=== PATIENT | male | born 1970 | race Caucasian/White ===

== ENCOUNTER 2016-07-23 16:55 | Emergency (ER) | payer OTHER ==
[~2016-07-23] VITALS: Wt 72.6 kg
[~2016-07-23 16:55] MED LIST: 'PARAFON FORTE500 M1 PO; 'XANAX1 MG PO; 'zithromax250 MG PO; ACYCLOVIR800 MG PO; ALBUTEROL0.09 MG/A2 INH; ALLEGRA180 MG PO; AMARYL4 MG PO; AMOXIL250 M1 PO; ANTIBIOTIC O500 U/GM TP; ASPIR LOW81 MG PO; ASPIRIN CHILDRE81 MG PO; ASPIRIN325 MG PO; ASPIRIN81 MG PO; ATARAX,VISTARIL10 MG PO; ATIVAN1 MG PO; BENTYL10 MG PO; BETAMETHASONE0.1% TP; BIAXIN500 MG PO; BUSPIRONE HCL15 MG PO; BUSPIRONE HCL5 MG PO; BUSPIRONE5 MG PO; CARVEDILOL3.125 MG PO; CARVEDILOL6.25 MG PO; CATAFLAM50 MG PO; CELEXA20 MG PO; CIPRO500 MG PO; CLARITIN10 MG PO; CLONAZEPAM1 MG PO; CLOPIDOGREL75 MG PO; COREG12.5 MG PO; COREG3.125 MG PO; COREG6.25 MG PO; COUMADIN2 M1 PO; COUMADIN2.5 M1 PO; COZAAR25 MG PO; CYCLOBENZAPRINE10 MG PO; DAYPRO600 M1 PO; DOLOBID500 MG PO; DOXEPIN 10 MG/ML PO; DOXEPIN HCL150 MG PO; DOXYCYCLINE HY100 M3 PO; DOXYCYCLINE100 M2 PO; DUONEB 3ML 3 MG/3 ML INH; EC NAPROSYN500 MG PO; EES400 MG PO; FIORICET 325 MG1 TAB PO; FLEXERIL10 MG PO; FLEXERIL5 MG PO; FUROSEMIDE40 MG PO; Fioricet 325 MG1 TAB PO; HYDROCHLOROTH12.5 M1 PO; HYDROCODONE BIT1 T11 PO; IMDUR SA30 MG PO; K-TAB20 MEQ PO; KEFLEX125 MG/5 M PO; KEFLEX500 MG PO; KETOROLAC10 MG PO; KLONOPIN1 MG PO; LIPITOR20 MG PO; LIPITOR40 MG PO; LISINOPRIL2.5 MG PO; MACROBID100 M1 PO; MEDROL DOSEPAK4 MG PO; MEDROL4 MG PO; METOPROLOL50 MG PO; MIDRIN (DURADR1 CAP PO; MOTRIN800 MG PO; MULTIVITAMIN PO; Motrin,Rufen800 MG PO; NAPROSYN500 MG PO; NAPROXEN500 M1 PO; NAPROXEN500 MG PO; NEURONTIN300 MG PO; NEURONTIN600 MG PO; NITROSTAT0.4 MG SL; NORCO 325 MG-101 TAB PO; NORCO 325 MG-7.1 TAB PO; NORFLEX100 MG PO; PANTOPRAZOLE SO40 MG PO; PEPCID20 MG PO; PEPCID40 MG PO; PHENERGAN W/ DE30 ML PO; PLAVIX75 MG PO; PREDNICOT10 MG PO; PREDNISONE20 MG PO; PRILOSEC20 MG PO; PROAIR HFA0.09 MG/AC INH; PROTONIX40 MG PO; RANEXA PO; RANEXA500 MG PO; SEROQUEL100 MG PO; SEROQUEL50 MG PO; SIMVASTATIN40 MG PO; SIMVASTATIN5 MG PO; TESSALON PERLE100 MG PO; TORADOL10 MG PO; TRAMADOL HCL50 MG PO; TYLENOL W/CODEI1 TA2 PO; ULTRAM50 MG PO; VIBRAMYCIN100 MG PO; VICODIN 5/500 505 MG PO; VICODIN 500 MG-1 TAB PO; VITAMIN D-32000 UNIT PO; VOLTAREN50 M1 PO; XANAX0.25 MG PO; XANAX1 MG PO; ZANTAC150 MG PO; ZESTRIL2.5 MG PO; ZITHROMAX Z PA250 MG PO; ZITHROMAX250 MG PO; ZOCOR20 MG PO; ZOCOR40 MG PO; ZOFRAN ODT4 MG SL; ZOFRAN4 MG PO; Zofran4 MG PO; [UNRECOGNIZED DRUG - OTHER] PO; [UNRECOGNIZED DRUG - OTHER] PO
[2016-07-23] MEDS ORDERED: LISINOPRIL5 MG PO (16:57)
[2016-07-23] MEDS ORDERED: DIAZEPAM10 M1 PO (16:58)
[2016-07-23] MEDS ORDERED: NAPROSYN500 MG PO (17:06)
== END 2016-07-23 18:02 | disposition home or self-care (01) ==
LOC: ED 16:55
DX: M25.552 Pain in left hip (principal); I25.10 Atherosclerotic heart disease of native coronary artery without angina pectoris; G43.909 Migraine, unspecified, not intractable, without status migrainosus; F17.200 Nicotine dependence, unspecified, uncomplicated; Z91.041 Radiographic dye allergy status; Z88.1 Allergy status to other antibiotic agents; Z88.8 Allergy status to other drugs, medicaments and biological substances; Z79.82 Long term (current) use of aspirin; Z79.899 Other long term (current) drug therapy

== ENCOUNTER 2016-07-24 18:53 | Emergency (ER) | payer OTHER ==
[~2016-07-24] VITALS: Ht 177.8 cm; Wt 72.6 kg
--- NOTE | ~2016-07-24 | EKG ---
[place], [place] ELECTROCARDIOGRAM REPORT NAME: CINDY GRUBER UNIT #: [id number] ROOM: DOCTOR: RYAN CHAUHAN MD BIRTHDATE: [birth year] DOS: 07/24/2016 TIME: 18:56:45 Normal sinus rhythm with isolated PVCs, probable left atrial enlargement, left axis deviation, poor R wave progression in the anterior leads with nonspecific ST-T changes. RYAN CHAUHAN MD CM:EKGRPT:ELECTROCARDIOGRAM REPORT [id number] RYAN CHAUHAN MD
[~2016-07-24 18:53] MED LIST changes: +DIAZEPAM10 M1 PO; +LISINOPRIL5 MG PO
[2016-07-24 19:41] LABS: BASO % 0.2 % (0.0-1.0); EOS # 0.1 10*3/uL (0.0-0.4); EOS % 0.9 % (1.0-4.0); HEMATOCRIT 37.3 % (42.0-52.0); HEMOGLOBIN 12.7 g/dl (14.0-18.0); IG # 0.1 10*3/uL (0.0-0.1); LYMPH # 1.5 10*3/uL (1.3-4.4); LYMPH % 14.1 % (27.0-41.0); MEAN CELL VOLUME 93.7 fl (80.0-94.0); MEAN CORPUSCULAR HGB 31.9 pg (27.0-31.0); MEAN PLATELET VOLUME 10.5 fl (9.6-12.3); MONO # 0.7 10*3/uL (0.1-1.0); MONO % 6.4 % (3.0-9.0); NEUT # 8.2 10*3/uL (2.3-7.9); NEUT % 77.8 % (47.0-73.0); PLATELET COUNT AUTOMATED 180 10*3/uL (130-400); RED BLOOD COUNT 3.98 10*6/uL (4.50-5.90); RED CELL DISTRI WIDTH 13.8 % (0-14.5); WHITE BLOOD COUNT 10.5 10*3/uL (4.8-10.8)
[2016-07-24 19:50] LABS: INTERNATIONAL NORM RATIO 1.1 (2.0-3.5); PROTHROMBIN TIME 11.2 SECONDS (9.0-12.4)
[2016-07-24 19:58] LABS: ALBUMIN 3.3 gm/dl (3.1-4.5); ALKALINE PHOSPHATASE 89 U/L (45-117); BILIRUBIN, DIRECT 0.2 mg/dL (0.0-0.2); BILIRUBIN, TOTAL 0.6 mg/dl (0.2-1.0); BUN 8 mg/dl (7-24); CARBON DIOXIDE 26 mmol/L (21-32); CHLORIDE 110 mmol/L (98-107); EST GLOM FILT AFRICAN AMERICAN > 60 ml/min; GLUCOSE 108 mg/dL (65-99); MAGNESIUM 1.4 mg/dL (1.5-2.1); POTASSIUM 4.1 mmol/L (3.5-5.1); SGOT/AST 73 IU/L (3-35); SGPT/ALT 80 U/L (12-78); SODIUM 143 mmol/L (136-145); TOTAL PROTEIN 6.7 gm/dL (6.4-8.2)
[2016-07-24 19:59] LABS: TROPONIN I 0.018 ng/ml (<0.045)
== END 2016-07-24 21:28 | disposition short-term general hospital (02) ==
LOC: ED 18:53
PROVIDERS: Emergency Medicine
DX: R07.9 Chest pain, unspecified (principal); F17.200 Nicotine dependence, unspecified, uncomplicated; I25.10 Atherosclerotic heart disease of native coronary artery without angina pectoris; G43.909 Migraine, unspecified, not intractable, without status migrainosus; Z95.5 Presence of coronary angioplasty implant and graft; Z79.82 Long term (current) use of aspirin; Z88.0 Allergy status to penicillin; Z88.1 Allergy status to other antibiotic agents; Z88.8 Allergy status to other drugs, medicaments and biological substances; Z91.041 Radiographic dye allergy status

== ENCOUNTER → 2016-08-03 | Outpatient (CLI) | payer OTHER ==
--- NOTE | ~2016-08-03 | ST ---
[place], [place] EXERCISE STRESS TEST REPORT [facility] [id number] UNIT #: [id number] ROOM: DOCTOR: RYAN CHAUHAN MD BIRTHDATE: [birth year] DOS: 08/03/2016 Lexiscan portion of the Lexiscan Cardiolite. Baseline cardiogram is sinus rhythm with poor R-wave progression, completed anteroseptal myocardial infarction, 0.4 mg of Lexiscan, duration of 10 seconds. With Lexiscan, no new EKG changes. The patient had no chest discomfort. Blood pressure and heart rate response was normal. Nuclear images will be reported separately. FINAL IMPRESSION: No EKG changes with Lexiscan. No chest pain with Lexiscan. No dysrhythmia with Lexiscan. Blood pressure and heart rate response was normal. Nuclear images will be reported separately. RYAN CHAUHAN MD CM:STRESS:EXERCISE STRESS TEST REPORT [id number] RYAN CHAUHAN MD
== END | disposition home or self-care (01) ==
LOC: CARD 01:50
DX: I25.119 Atherosclerotic heart disease of native coronary artery with unspecified angina pectoris (principal)

== ENCOUNTER 2016-09-15 15:56 | Emergency (ER) | payer OTHER ==
[~2016-09-15] VITALS: Ht 180.3 cm; Wt 72.6 kg
[2016-09-15 16:29] LABS: BASO % 0.5 % (0.0-1.0); EOS # 0.1 10*3/uL (0.0-0.4); EOS % 2.1 % (1.0-4.0); HEMATOCRIT 37.8 % (42.0-52.0); HEMOGLOBIN 12.9 g/dl (14.0-18.0); LYMPH # 1.8 10*3/uL (1.3-4.4); MEAN CELL VOLUME 96.4 fl (80.0-94.0); MEAN CORPUSCULAR HGB 32.9 pg (27.0-31.0); MEAN CORPUSCULAR HGB CONC 34.1 g/dl (33.0-37.0); MEAN PLATELET VOLUME 10.2 fl (9.6-12.3); MONO # 0.4 10*3/uL (0.1-1.0); MONO % 6.6 % (3.0-9.0); NEUT # 3.3 10*3/uL (2.3-7.9); NEUT % 58.4 % (47.0-73.0); PLATELET COUNT AUTOMATED 169 10*3/uL (130-400); RED BLOOD COUNT 3.92 10*6/uL (4.50-5.90); RED CELL DISTRI WIDTH 13.3 % (0-14.5); WHITE BLOOD COUNT 5.6 10*3/uL (4.8-10.8)
[2016-09-15 16:47] LABS: ALBUMIN 3.6 gm/dl (3.1-4.5); ALKALINE PHOSPHATASE 59 U/L (45-117); BILIRUBIN, TOTAL 0.4 mg/dl (0.2-1.0); BUN 2 mg/dl (7-24); C-REACTIVE PROTEIN 1.41 MG/DL (0-0.3); CARBON DIOXIDE 30 mmol/L (21-32); CHLORIDE 107 mmol/L (98-107); CKMB 0.5 ng/ml (0.5-3.6); CPK 86 U/L (39-308); EST GLOM FILT AFRICAN AMERICAN > 60 ml/min; GLUCOSE 51 mg/dL (65-99); INTERNATIONAL NORM RATIO 1.1 (2.0-3.5); MAGNESIUM 1.9 mg/dL (1.5-2.1); POTASSIUM 3.7 mmol/L (3.5-5.1); PROTHROMBIN TIME 11.2 SECONDS (9.0-12.4); SGOT/AST 22 IU/L (3-35); SGPT/ALT 16 U/L (12-78); SODIUM 143 mmol/L (136-145); TOTAL PROTEIN 6.5 gm/dL (6.4-8.2); TROPONIN I < 0.015 ng/ml (<0.045)
[2016-09-15 17:25] LABS: BILIRUBIN NEGATIVE (NEGATIVE); BLOOD NEGATIVE (NEGATIVE); CLARITY CLEAR (CLEAR); COLOR YELLOW (YELLOW); GLUCOSE 1+ (NEGATIVE); KETONE NEGATIVE (NEGATIVE); LEUKO ESTERASE NEGATIVE (NEGATIVE); NITRITE NEGATIVE (NEGATIVE); PH 5.5 (5.0-9.0); PROTEIN NEGATIVE (NEGATIVE); SPECIFIC GRAVITY <= 1.005 (1.005-1.030); UROBILINOGEN 0.2 E.U./dl (0.2-1.0)
[2016-09-15 17:34] LABS: URINE AMPHETAMINES < 1000 (1000ng/ml); URINE BARBITURATES < 200 (200ng/ml); URINE COCAINE < 300 (300ng/ml)
[2016-09-15 17:35] LABS: BACTERIA TRACE; EPITHELIAL CELLS 0-2; RBC 0-2 rbc/hpf (0-2); URINE REFLEX COMMENT NO (NO); WBC 0-2 wbc/hpf (0-5)
[2016-09-15] MEDS ORDERED: KEPPRA500 MG PO (17:45)
[2016-09-15 18:24] LABS: LA>2 REFLEX 2 HR DRAW NOW
== END 2016-09-15 18:29 | disposition home or self-care (01) ==
LOC: ED 15:56
PROVIDERS: Emergency Medicine
DX: R56.9 Unspecified convulsions (principal); F12.10 Cannabis abuse, uncomplicated; R53.1 Weakness; R51 Headache; R42 Dizziness and giddiness; R47.81 Slurred speech; R41.0 Disorientation, unspecified; I25.2 Old myocardial infarction; I25.10 Atherosclerotic heart disease of native coronary artery without angina pectoris; G43.909 Migraine, unspecified, not intractable, without status migrainosus; Z88.1 Allergy status to other antibiotic agents; Z88.8 Allergy status to other drugs, medicaments and biological substances; Z91.041 Radiographic dye allergy status; Z79.82 Long term (current) use of aspirin; Z79.899 Other long term (current) drug therapy

== ENCOUNTER 2016-09-26 10:55 | Emergency (ER) | payer OTHER ==
[~2016-09-26] VITALS: Ht 172.7 cm; Wt 72.6 kg
[~2016-09-26 10:55] MED LIST changes: +KEPPRA500 MG PO
[2016-09-26] MEDS ORDERED: PLAVIX75 M1 PO ×2 (11:02→11:25)
[2016-09-26] MEDS ORDERED: LISINOPRIL5 MG PO (11:25)
[2016-09-26] MEDS ORDERED: PROTONIX40 MG PO (11:25)
[2016-09-26] MEDS ORDERED: KEPPRA500 MG PO (11:25)
== END 2016-09-26 12:31 | disposition home or self-care (01) ==
LOC: ED 10:55
DX: Z76.0 Encounter for issue of repeat prescription (principal); I10 Essential (primary) hypertension; I25.10 Atherosclerotic heart disease of native coronary artery without angina pectoris; G43.909 Migraine, unspecified, not intractable, without status migrainosus; F12.10 Cannabis abuse, uncomplicated; F17.200 Nicotine dependence, unspecified, uncomplicated

== ENCOUNTER 2016-11-21 20:04 | Emergency (ER) | payer OTHER ==
[~2016-11-21] VITALS: Ht 167.6 cm; Wt 71.2 kg
[~2016-11-21 20:04] MED LIST changes: +PLAVIX75 M1 PO
[2016-11-21 20:15] LABS: BASO % 0.3 % (0.0-1.0); EOS # 0.1 10*3/uL (0.0-0.4); EOS % 1.3 % (1.0-4.0); HEMATOCRIT 39.8 % (42.0-52.0); HEMOGLOBIN 13.4 g/dl (14.0-18.0); LYMPH # 3.6 10*3/uL (1.3-4.4); LYMPH % 34.9 % (27.0-41.0); MEAN CELL VOLUME 92.6 fl (80.0-94.0); MEAN CORPUSCULAR HGB 31.2 pg (27.0-31.0); MEAN CORPUSCULAR HGB CONC 33.7 g/dl (33.0-37.0); MONO # 0.3 10*3/uL (0.1-1.0); MONO % 2.8 % (3.0-9.0); NEUT # 6.2 10*3/uL (2.3-7.9); NEUT % 60.3 % (47.0-73.0); PLATELET COUNT AUTOMATED 265 10*3/uL (130-400); WHITE BLOOD COUNT 10.2 10*3/uL (4.8-10.8)
[2016-11-21 20:34] LABS: ALBUMIN 3.4 gm/dl (3.1-4.5); ALKALINE PHOSPHATASE 65 U/L (45-117); BUN 6 mg/dl (7-24); CHLORIDE 110 mmol/L (98-107); CREATININE 1.12 mg/dL (0.70-1.30); MAGNESIUM 2.6 mg/dL (1.5-2.1); POTASSIUM 4.1 mmol/L (3.5-5.1); SGOT/AST 24 IU/L (3-35); SGPT/ALT 24 U/L (12-78); SODIUM 143 mmol/L (136-145); TOTAL PROTEIN 7.1 gm/dL (6.4-8.2)
[2016-11-21 20:35] LABS: TROPONIN I < 0.015 ng/ml (<0.045)
[2016-11-21 21:34] LABS: BILIRUBIN NEGATIVE (NEGATIVE); BLOOD NEGATIVE (NEGATIVE); CLARITY CLEAR (CLEAR); COLOR YELLOW (YELLOW); GLUCOSE NEGATIVE (NEGATIVE); KETONE NEGATIVE (NEGATIVE); LEUKO ESTERASE NEGATIVE (NEGATIVE); NITRITE NEGATIVE (NEGATIVE); SPECIFIC GRAVITY <= 1.005 (1.005-1.030); UROBILINOGEN 0.2 E.U./dl (0.2-1.0)
[2016-11-21 21:44] LABS: URINE AMPHETAMINES < 1000 (1000ng/ml); URINE BARBITURATES < 200 (200ng/ml); URINE BENZODIAZEPINES > 200 (200ng/ml); URINE CANNABINOIDS (THC) > 50 (50ng/ml); URINE COCAINE < 300 (300ng/ml); URINE METHADONE < 300 (300ng/ml); URINE OPIATES < 300 (300ng/ml); URINE PHENCYCLIDINE < 25 (25ng/ml)
[2016-11-21 21:50] LABS: EPITHELIAL CELLS 0-2
[2016-11-21] MEDS ORDERED: LISINOPRIL2.5 MG PO (22:04)
[2016-11-21] MEDS ORDERED: XANAX1 MG PO (22:05)
== END 2016-11-22 00:16 | disposition short-term general hospital (02) ==
LOC: ED 20:04
PROVIDERS: Emergency Medicine Emergency Medical Services
DX: R07.9 Chest pain, unspecified (principal); I25.10 Atherosclerotic heart disease of native coronary artery without angina pectoris; F12.10 Cannabis abuse, uncomplicated; G43.909 Migraine, unspecified, not intractable, without status migrainosus; Z95.1 Presence of aortocoronary bypass graft; Z95.5 Presence of coronary angioplasty implant and graft; Z79.899 Other long term (current) drug therapy; Z79.82 Long term (current) use of aspirin; Z91.041 Radiographic dye allergy status; Z88.8 Allergy status to other drugs, medicaments and biological substances; Z88.1 Allergy status to other antibiotic agents

== ENCOUNTER → 2016-12-06 | Outpatient (CLI) | payer OTHER ==
[2016-12-06 13:29] LABS: BUN 13 mg/dl (7-24); CHLORIDE 103 mmol/L (98-107); POTASSIUM 4.8 mmol/L (3.5-5.1); SODIUM 137 mmol/L (136-145)
[2016-12-06 13:31] LABS: CREATININE 1.42 mg/dL (0.70-1.30)
== END | disposition home or self-care (01) ==
LOC: LAB 12:44
PROVIDERS: Internal Medicine Interventional Cardiology
DX: I25.10 Atherosclerotic heart disease of native coronary artery without angina pectoris (principal); Z98.61 Coronary angioplasty status

== ENCOUNTER 2016-12-23 09:18 | Inpatient (IN) | payer OTHER ==
[~2016-12-23] VITALS: Ht 172.7 cm; Wt 73.7 kg
--- NOTE | ~2016-12-23 | WRIGHTHP ---
[place], [place] PATIENT HISTORY AND PHYSICAL EXAM NAME: CINDY GRUBER [facility] #: [id number] UNIT #: [id number] ROOM: 507 DOCTOR: RYAN ZAMORANO,RAJESH Foster BIRTHDATE: [birth year] DOS: 12/23/2016 HISTORY OF PRESENT ILLNESS: The patient was admitted on advice of Emergency Department with complaints of chest pains and he had significant history of coronary artery disease. Soon after admission, the patient left the hospital against medical advice before she could be seen by me. RAJESH DAVIS MD CM:HISPHYS:PATIENT HISTORY AND PHYSICAL EXAMINATION 99 42 RAEJSH DAVIS MD 12/28/161941 interface
[2016-12-23 09:33] LABS: BASO % 0.4 % (0.0-1.0); EOS # 0.1 10*3/uL (0.0-0.4); EOS % 1.3 % (1.0-4.0); HEMATOCRIT 36.3 % (42.0-52.0); HEMOGLOBIN 12.1 g/dl (14.0-18.0); LYMPH # 2.1 10*3/uL (1.3-4.4); LYMPH % 26.8 % (27.0-41.0); MEAN CELL VOLUME 92.4 fl (80.0-94.0); MEAN CORPUSCULAR HGB 30.8 pg (27.0-31.0); MEAN CORPUSCULAR HGB CONC 33.3 g/dl (33.0-37.0); MEAN PLATELET VOLUME 10.3 fl (9.6-12.3); MONO # 0.4 10*3/uL (0.1-1.0); MONO % 5.4 % (3.0-9.0); NEUT # 5.1 10*3/uL (2.3-7.9); NEUT % 65.6 % (47.0-73.0); PLATELET COUNT AUTOMATED 221 10*3/uL (130-400); RED BLOOD COUNT 3.93 10*6/uL (4.50-5.90); RED CELL DISTRI WIDTH 13.8 % (0-14.5); WHITE BLOOD COUNT 7.8 10*3/uL (4.8-10.8)
[2016-12-23 09:35] VITALS: BP 131/80
[2016-12-23 09:42] LABS: ACT PARTIAL THROMBO TIME 22.2 SECONDS (20.8-31.5)
[2016-12-23 09:49] LABS: ALBUMIN 3.8 gm/dl (3.1-4.5); ALKALINE PHOSPHATASE 63 U/L (45-117); BUN 23 mg/dl (7-24); CHLORIDE 104 mmol/L (98-107); CREATININE 1.41 mg/dL (0.70-1.30); SGOT/AST 25 IU/L (3-35); SGPT/ALT 45 U/L (12-78); SODIUM 137 mmol/L (136-145)
[2016-12-23 09:52] LABS: TROPONIN I < 0.015 ng/ml (<0.045)
[2016-12-23 10:22] VITALS: BP 124/72
--- NOTE | 2016-12-23 10:23 | NUR ---
O2 INITATED FOR COMFORT DUE TO HEADACHE.
--- NOTE | 2016-12-23 11:00 | NUR ---
A 46, admitted to , under the services of Dr. RYAN ZAMORANO,RAJESH Foster with a diagnosis of CHEST PAIN WITH MODERATE RISK FOR CARDIAC ETIOLOGY. Chief complaint is CHEST PAIN. Patient arrived via bed from ER. Monitor applied. Initial assessment completed. Vital signs taken and recorded. DR. RYAN ZAMORANO,RAJESH Foster notified of admission to the unit. Orders received. See assessment for past medical history, medications and allergies. Patient and/or family oriented to unit. [facility] visitation policy reviewed. Clothing/patient valuable form completed. DAVE PISANO
[2016-12-23 11:14] VITALS: BP 91/70
[2016-12-23] MEDS ORDERED: LISINOPRIL5 MG PO (11:43)
--- NOTE | 2016-12-23 11:53 | NUR ---
ANSWERING SERVICE NOTIFIED OF CONSULT
--- NOTE | 2016-12-23 11:58 | NUR ---
NOTIFIED OF CHEST PAIN, PER HE INCREASED THE NITRO PASTE TO 1INCH [id number].
[2016-12-23 12:00] VITALS: BP 121/75
--- NOTE | 2016-12-23 12:15 | NUR ---
PT LEFT AMA ALL INTERESTED PARTIES HAVE BEEN NOTIFIED
== END 2016-12-23 12:15 | disposition left against medical advice (07) | DRG 313 ==
LOC: ED 09:18 → EDHOLD 10:36 → 5E 10:44
PROVIDERS: Student in an Organized Health Care Education/Training Program; ADMIT Internal Medicine
DX: R07.9 Chest pain, unspecified (principal); I25.2 Old myocardial infarction; F17.210 Nicotine dependence, cigarettes, uncomplicated; Z53.21 Procedure and treatment not carried out due to patient leaving prior to being seen by health care provider; Z88.1 Allergy status to other antibiotic agents; Z88.8 Allergy status to other drugs, medicaments and biological substances; Z91.041 Radiographic dye allergy status; Z95.1 Presence of aortocoronary bypass graft; Z82.49 Family history of ischemic heart disease and other diseases of the circulatory system; Z83.3 Family history of diabetes mellitus; Z80.9 Family history of malignant neoplasm, unspecified

== ENCOUNTER 2016-12-30 12:33 | Emergency (ER) | payer OTHER ==
[~2016-12-30] VITALS: Ht 172.7 cm; Wt 71.7 kg
[2016-12-30 13:22] LABS: BASO % 0.4 % (0.0-1.0); EOS # 0.1 10*3/uL (0.0-0.4); EOS % 1.9 % (1.0-4.0); HEMATOCRIT 35.8 % (42.0-52.0); HEMOGLOBIN 12.4 g/dl (14.0-18.0); LYMPH # 1.9 10*3/uL (1.3-4.4); LYMPH % 35.3 % (27.0-41.0); MEAN CELL VOLUME 91.6 fl (80.0-94.0); MEAN CORPUSCULAR HGB 31.7 pg (27.0-31.0); MEAN CORPUSCULAR HGB CONC 34.6 g/dl (33.0-37.0); MEAN PLATELET VOLUME 10.1 fl (9.6-12.3); MONO # 0.3 10*3/uL (0.1-1.0); NEUT # 3.1 10*3/uL (2.3-7.9); PLATELET COUNT AUTOMATED 202 10*3/uL (130-400); RED BLOOD COUNT 3.91 10*6/uL (4.50-5.90); RED CELL DISTRI WIDTH 13.5 % (0-14.5); WHITE BLOOD COUNT 5.4 10*3/uL (4.8-10.8)
[2016-12-30 13:31] LABS: ACT PARTIAL THROMBO TIME 22.7 SECONDS (20.8-31.5)
[2016-12-30 13:38] LABS: ALBUMIN 3.8 gm/dl (3.1-4.5); ALKALINE PHOSPHATASE 64 U/L (45-117); BUN 11 mg/dl (7-24); CHLORIDE 105 mmol/L (98-107); CREATININE 1.24 mg/dL (0.70-1.30); POTASSIUM 4.5 mmol/L (3.5-5.1); SGOT/AST 19 IU/L (3-35); SGPT/ALT 32 U/L (12-78); SODIUM 138 mmol/L (136-145); TOTAL PROTEIN 7.1 gm/dL (6.4-8.2)
[2016-12-30 13:41] LABS: TROPONIN I < 0.015 ng/ml (<0.045)
[2016-12-30] MEDS ORDERED: 'XANAX1 MG PO (23:42)
[2016-12-30] MEDS ORDERED: NATURE'S BLEND F1 MG PO (23:43)
[2016-12-30] MEDS ORDERED: ASPIRIN ADULT L81 M2 PO (23:43)
[2016-12-30] MEDS ORDERED: NEURONTIN600 MG PO (23:44)
[2016-12-30] MEDS ORDERED: ATARAX,VISTARIL10 MG PO (23:44)
[2016-12-30] MEDS ORDERED: PANTOPRAZOLE SO40 MG PO (23:45)
[2016-12-30] MEDS ORDERED: TRAMADOL HCL50 MG PO (23:45)
[2016-12-30] MEDS ORDERED: COREG12.5 M1 PO (23:46)
[2016-12-30] MEDS ORDERED: LISINOPRIL2.5 MG PO (23:46)
[2016-12-30] MEDS ORDERED: CLOPIDOGREL75 MG PO (23:46)
[2016-12-30] MEDS ORDERED: ZETIA10 MG PO (23:46)
[2016-12-30] MEDS ORDERED: ALDACTONE25 M1 PO (23:47)
[2016-12-30] MEDS ORDERED: DOXEPIN HCL150 MG PO (23:48)
[2016-12-30] MEDS ORDERED: LIPITOR40 MG PO (23:48)
[2016-12-30] MEDS ORDERED: QUETIAPINE FUM100 M1 PO (23:49)
[2016-12-30] MEDS ORDERED: NITROGLYCERIN0.4 MG SL (23:51)
== END 2016-12-30 15:08 | disposition home or self-care (01) ==
LOC: ED 12:33
PROVIDERS: Emergency Medicine
DX: R07.9 Chest pain, unspecified (principal); F17.200 Nicotine dependence, unspecified, uncomplicated; I25.10 Atherosclerotic heart disease of native coronary artery without angina pectoris; G43.909 Migraine, unspecified, not intractable, without status migrainosus; J44.9 Chronic obstructive pulmonary disease, unspecified; I25.2 Old myocardial infarction; Z95.1 Presence of aortocoronary bypass graft; Z95.5 Presence of coronary angioplasty implant and graft; Z98.890 Other specified postprocedural states; Z79.899 Other long term (current) drug therapy; Z79.82 Long term (current) use of aspirin; Z91.041 Radiographic dye allergy status; Z88.1 Allergy status to other antibiotic agents; Z88.8 Allergy status to other drugs, medicaments and biological substances

== ENCOUNTER 2016-12-30 20:28 | Inpatient (IN) | payer OTHER ==
[~2016-12-30] VITALS: Ht 172.7 cm; Wt 74.2 kg
--- NOTE | ~2016-12-30 | CON ---
[place], [place] REPORT OF CONSULTATION NAME: CINDY GRUBER UNIT #: [id number] ROOM: 529 DOCTOR: TIEN ZAMORANORYAN BIRTHDATE: [birth year] DOS: 12/31/2016 HISTORY OF PRESENT ILLNESS: The patient is very well known to me with a history of tobacco abuse, continues to smoke, history of previous bypass surgery, premature coronary artery disease, recently was in [facility], had 2 stents placed about a month ago. I do not have the details of that, came on last week with chest discomfort, signed against medical advice. The patient has a LifeVest on. The patient came in again with chest pain. Cardiac enzymes are negative. No acute EKG changes suggestion of myocardial infarction. The patient, as mentioned, has premature coronary artery disease with triple vessel bypass and stents placed at [facility] 2 months ago. PAST MEDICAL HISTORY: Significant for coronary artery disease, bypass surgery, hypertension, hyperlipidemia, COPD, chronic pain, pain medication dependency. PAST SURGICAL HISTORY: Bypass surgery, hypertension, hyperlipidemia, multiple hospital admissions in the past, history of cardiomyopathy and also recent LifeVest placed. MEDICATIONS: He is on lisinopril, Ultram, spironolactone, clopidogrel, carvedilol, atorvastatin, aspirin, and inhalers. ALLERGIES: AMPICILLIN AND CLAVULANIC ACID. REVIEW OF SYSTEMS: CONSTITUTIONAL: No fever, no chills. HEENT: No visual disturbances or hearing problems. CARDIOVASCULAR: As per HPI. GASTROINTESTINAL: No nausea, no vomiting. GENITOURINARY: No dysuria, hematuria. NEUROLOGICAL: No syncope. PHYSICAL EXAMINATION: GENERAL: Alert and oriented x 3. HEENT: Unremarkable. NECK: Supple, no JVD. LUNGS: Clear. HEART: Sounds are regular. ABDOMEN: Soft, nontender. NEUROLOGIC: Stable. All other blood work within normal limits. LABORATORY DATA: Hemoglobin 12.4, hematocrit 36.3. Electrolytes are normal. CPK-MB and troponins are all negative. IMPRESSION: The patient with severe cardiomyopathy status post stent placement at [facility] a month ago. The patient has a LifeVest on, noncompliance, hypertension, hyperlipidemia, tobacco abuse. [place], [place] REPORT OF CONSULTATION NAME: CINDY GRUBER UNIT #: [id number] ROOM: 529 DOCTOR: RYAN CHAUHAN MD BIRTHDATE: [birth year] RECOMMENDATIONS: Continue the present care. LifeVest has been adjusted and reviewed and the belt has been changed as per the rep. Continue the beta blockers, [place] inhibitors, lipid lowering agents and nitrates and clopidogrel and aspirin. We will schedule for a Lexiscan Cardiolite stress test and I will closely follow up. RYAN CHAUHAN MD CM:CONSTR:REPORT OF CONSULTATION 1543 01/01/17 0559 interface
--- NOTE | ~2016-12-30 | WRIGHTHP ---
[place], [place] PATIENT HISTORY AND PHYSICAL EXAM NAME: CINDY GRUBER [facility] #: [id number] UNIT #: [id number] ROOM: 529 DOCTOR: RAJESH DAVIS MD BIRTHDATE: [birth year] DOS: 12/30/2016 HISTORY OF PRESENT ILLNESS: The patient is a 46-year-old gentleman with a past medical history of: 1. Coronary artery disease of [place] vessels, bypass grafts and recent stent placements. 2. Dilated cardiomyopathy. 3. Benign essential hypertension. 4. Chronic pain syndrome. 5. Illegal drug abuse including marijuana. 6. Generalized anxiety disorder. 7. Nicotine smoke dependence. The patient presented to the Emergency Department for the second time with chest pains and pressures, so he was admitted to ruled out for myocardial infarction. All the patient's troponin I levels have been negative and he has seen by his overhead crane operator, Dr. Flannery and cleared for discharge to home. The patient with external defibrillator vest and he is asymptomatic now. No shortness of breath. No other GI or urinary symptoms. REVIEW OF SYSTEMS: LUNGS: No increasing shortness of breath or wheezing. GASTROINTESTINAL: No nausea, vomiting, diarrhea, constipation. CARDIOVASCULAR: Complains of recurrent chest pains. FAMILY HISTORY: Noncontributory. SOCIAL HISTORY: The patient with history of smoking cigarettes, marijuana dependence. Denies any alcohol abuse. FAMILY HISTORY: Noncontributory. MEDICATIONS: Seroquel, Lipitor, spironolactone, lisinopril, Zetia, Plavix, Coreg, tramadol, hydroxyzine, gabapentin, folic acid, aspirin, Protonix, Doxepin, sublingual nitroglycerins. ALLERGIES: KNOWN ALLERGIES TO IODINE DYE, PENICILLINS, QUINOLONES, INTEGRILIN, CYMBALTA. PHYSICAL EXAMINATION: GENERAL: Alert and oriented x 3, in no visible distress. HEENT AND NECK: Extraocular movements are intact. Sclerae are anicteric. Oral mucosa is moist and clean. No obvious facial weakness. Neck is supple without any lymphadenopathy. No thyromegaly. No JVD. No carotid arterial bruits. LUNGS: Clear to auscultation. No wheezing. No rhonchi. CARDIOVASCULAR SYSTEM: Heart rate is regular in rate and rhythm. S1 and S2 normally audible. No significant murmur or any other abnormal cardiac sounds. The patient is wearing external cardiac defibrillator. ABDOMEN: Soft, nontender. No obvious organomegaly. Bowel sounds are present. No obvious herniation. EXTREMITIES: Without significant cyanosis or edema. Warm to touch. [place], [place] PATIENT HISTORY AND PHYSICAL EXAM NAME: CINDY GRUBER UNIT #: [id number] ROOM: 529 DOCTOR: RAJESH DAVIS MD BIRTHDATE: [birth year] CENTRAL NERVOUS SYSTEM: Alert and oriented x 3. Cranial nerves II-XII are intact. Speech is normal. The patient is able to move all extremities. Normal muscle strength. Deep tendon reflexes are equal on both sides. Plantars were downgoing. LABORATORY DATA: Troponin I levels x 5 times are all normal. Urine drug screen positive for barbiturates, benzodiazepine, and opiates and marijuana. IMPRESSION: 1. The patient presenting with chest pains from uncertain etiology. The patient does have history of coronary artery disease of the [place] vessels as well as bypass grafts and stenting with an exterior defibrillator in place. The patient's all cardiac enzymes have been negative and after clearance from Dr. Flannery and Dr. Esparza, the patient is being discharged to home and going to be scheduled for a cardiac stress test with Dr. Flannery on Tuesday. 2. History of drug abuse, still positive for marijuana and barbiturate. 3. Chronic pain syndrome. The patient takes tramadol as needed for pain control, dilated cardiomyopathy. The patient is on lisinopril, spironolactone, Plavix, Coreg. 4. Mixed hyperlipidemia, treated with atorvastatin. 5. After clearance from Cardiology. The patient to be discharged to home and just cardiac stress test is being ordered on Tuesday with Dr. Flannery. Following this, the patient will follow up with her PCP Dr. Renetta Washington. RAJESH DAVIS MD CM:HISPHYS:PATIENT HISTORY AND PHYSICAL EXAMINATION 04 25 RAJESH DAVIS MD 12/31/162023 interface
[2016-12-30 21:01] LABS: BASO % 0.2 % (0.0-1.0); EOS # 0.1 10*3/uL (0.0-0.4); EOS % 2.2 % (1.0-4.0); HEMATOCRIT 36.1 % (42.0-52.0); HEMOGLOBIN 12.4 g/dl (14.0-18.0); LYMPH # 2.8 10*3/uL (1.3-4.4); LYMPH % 44.5 % (27.0-41.0); MEAN CELL VOLUME 90.9 fl (80.0-94.0); MEAN CORPUSCULAR HGB 31.2 pg (27.0-31.0); MEAN CORPUSCULAR HGB CONC 34.3 g/dl (33.0-37.0); MONO # 0.5 10*3/uL (0.1-1.0); MONO % 7.4 % (3.0-9.0); NEUT # 2.8 10*3/uL (2.3-7.9); NEUT % 45.4 % (47.0-73.0); PLATELET COUNT AUTOMATED 209 10*3/uL (130-400); RED BLOOD COUNT 3.97 10*6/uL (4.50-5.90); RED CELL DISTRI WIDTH 13.6 % (0-14.5); WHITE BLOOD COUNT 6.3 10*3/uL (4.8-10.8)
[2016-12-30 21:11] LABS: ACT PARTIAL THROMBO TIME 22.4 SECONDS (20.8-31.5)
[2016-12-30 21:18] LABS: ALBUMIN 3.8 gm/dl (3.1-4.5); ALKALINE PHOSPHATASE 66 U/L (45-117); BUN 12 mg/dl (7-24); CHLORIDE 104 mmol/L (98-107); CREATININE 1.36 mg/dL (0.70-1.30); POTASSIUM 4.6 mmol/L (3.5-5.1); SGOT/AST 23 IU/L (3-35); SGPT/ALT 36 U/L (12-78); SODIUM 137 mmol/L (136-145); TOTAL PROTEIN 7.1 gm/dL (6.4-8.2)
[2016-12-30 21:21] LABS: TROPONIN I < 0.015 ng/ml (<0.045)
[2016-12-30 21:35] VITALS: BP 120/70
[2016-12-30 22:11] VITALS: BP 95/62
--- NOTE | 2016-12-30 22:14 | NUR ---
DR. JEFFERY NOTIFIED THAT PATIENT IS STILL HAVING MIDSTERNAL CRUSHING CHEST PAIN 11/30. WILL CONTINUE TO MONITOR.
[2016-12-30 22:25] VITALS: BP 105/63
[2016-12-30 23:05] VITALS: BP 115/55
--- NOTE | 2016-12-30 23:10 | NUR ---
A 46YR OLD MALE, admitted to 5E, under the services of Dr. RYAN ZAMORANO,RAJESH Foster with a diagnosis of COPD AND CHEST PAIN. Chief complaint is C/O CRUSHING CHEST PAIN RADIATING TO HIS JAW,BACK & LT ARM. Patient arrived via stretcher from ER. Monitor applied. Initial assessment completed. Vital signs taken and recorded. DR. RYAN ZAMORANO,RAJESH Foster notified of admission to the unit. Orders received. See assessment for past medical history, medications and allergies. Patient and/or family oriented to unit 5E. visitation policy reviewed. Clothing/patient valuable form completed. ERNIE ALFRED
[2016-12-30 23:15] VITALS: BP 133/73
[2016-12-30] MEDS ORDERED: 'XANAX1 MG PO (23:42)
[2016-12-30] MEDS ORDERED: ASPIRIN ADULT L81 M2 PO (23:43)
[2016-12-30] MEDS ORDERED: NATURE'S BLEND F1 MG PO (23:43)
[2016-12-30] MEDS ORDERED: ATARAX,VISTARIL10 MG PO (23:44)
[2016-12-30] MEDS ORDERED: NEURONTIN600 MG PO (23:44)
[2016-12-30] MEDS ORDERED: TRAMADOL HCL50 MG PO (23:45)
[2016-12-30] MEDS ORDERED: PANTOPRAZOLE SO40 MG PO (23:45)
[2016-12-30] MEDS ORDERED: LISINOPRIL2.5 MG PO (23:46)
[2016-12-30] MEDS ORDERED: CLOPIDOGREL75 MG PO (23:46)
[2016-12-30] MEDS ORDERED: ZETIA10 MG PO (23:46)
[2016-12-30] MEDS ORDERED: COREG12.5 M1 PO (23:46)
[2016-12-30] MEDS ORDERED: ALDACTONE25 M1 PO (23:47)
[2016-12-30] MEDS ORDERED: LIPITOR40 MG PO (23:48)
[2016-12-30] MEDS ORDERED: DOXEPIN HCL150 MG PO (23:48)
[2016-12-30] MEDS ORDERED: QUETIAPINE FUM100 M1 PO (23:49)
[2016-12-30] MEDS ORDERED: NITROGLYCERIN0.4 MG SL (23:51)
--- NOTE | 2016-12-31 00:10 | NUR ---
Called Dr. Goins and told him of patient admission and mediction reconciliation updated and verified with patient and patient's list of home medications. Admission orders received.
[2016-12-31 00:36] LABS: CKMB 1.3 ng/ml (0.5-3.6)
--- NOTE | 2016-12-31 00:44 | NUR ---
Called 's answering service regarding consult and a seven beat run of V TACH on monitor strip. The answering service said that Dr. Moncada was weekend receptionist and they put the nurse throught to him. This nurse told Dr. Moncada regarding consult and the V TACH. Also the patient's Troponins being negative and that the patient was now in NSR. He said to call Dr. Flannery at 6 am.
--- NOTE | 2016-12-31 00:59 | NUR ---
Medicated with Nitro 1 sl prn for chest pain rating 6/10. Will monitor effectiveness. Call light within reach.
--- NOTE | 2016-12-31 01:04 | NUR ---
Patient resting quietly in bed and nurse asked him about his chest pain rating. He states that it has decreased to 2-3 now. Nitro effective. Will continue to monitor. Call light within reach.
--- NOTE | 2016-12-31 01:52 | NUR ---
24 HR chart check completed.
--- NOTE | 2016-12-31 06:06 | NUR ---
Called and notified Dr. Flannery regarding consult and also having that one time 7 beat run of V Tach. Also told him cardiac enzymes have also been negative. He said he would come in to see him today.
[2016-12-31 08:00] VITALS: BP 119/78
--- NOTE | 2016-12-31 08:30 | NUR ---
Inspector Repairer in to talk to patient. Patient states lives at HOME with HIS MOTHER. There are 13 steps in the home. Physician: DR JOVEL Pharmacy: [facility] Home health services: NONE Patient's level of ADLs: INDEPENDENT Patient has working utilities: YES DME: [facility] Follow-up physician's appointment after d/c: PREFERS TO MAKE HIS OWN APPT Does patient want to access PORTAL?: Discharge plan HOME. [facility]
[2016-12-31 09:10] LABS: CKMB 1.2 ng/ml (0.5-3.6); CPK 98 U/L (39-308)
[2016-12-31 09:11] LABS: TROPONIN I < 0.015 ng/ml (<0.045)
[2016-12-31 11:04] LABS: URINE AMPHETAMINES < 1000 (1000ng/ml); URINE BARBITURATES > 200 (200ng/ml); URINE BENZODIAZEPINES > 200 (200ng/ml); URINE CANNABINOIDS (THC) > 50 (50ng/ml); URINE COCAINE < 300 (300ng/ml); URINE METHADONE < 300 (300ng/ml); URINE OPIATES > 300 (300ng/ml)
[2016-12-31 11:06] LABS: URINE PHENCYCLIDINE < 25 (25ng/ml)
--- NOTE | 2016-12-31 11:45 | NUR ---
CINDY GRUBER [id number] Please refer to the physician's history and physical for past medical history, comorbid conditions, and allergies. Diagnosis: COPD CHEST PAIN Giuseppe Score: 16,AT RISK WOUND DESCRIPTIONS: Location of the wound: left upper arm Type of wound: skin tear Thickness: Partial Size: 1.7cm x 0.2cm x <0.1cm Tunneling: none Undermining: none Sinus Tract: none Presence of Exudate: none Amount: None Color: Yellow Odor: None Periwound Skin Appearance: Normal Wound edges: closed Pain (associated with wound): none at time of assessment How does patient state this happened? pt unsure how this happened. Surface the patient is resting on: Isoflex SKIN PREVENTION RECOMMENDATION: 1. Pressure redistribution support surface as appropriate 2. Elevate heels 3. Remove boots/TEDS every shift and reapply 4. Head of bed 30 degrees as tolerated 5. Assess nutrition and hydration 6. Manage moisture 7. Avoid the use of containment devices while in bed 8. Use absorptive products on surfaces limit layers of linens on bed 9. Turn and reposition every 1-2 hours in bed and every 1 hour in chair as tolerated 10. Weight shifts every 15 minutes while up in chair 11. Offloading with pillows or device to keep heels elevated off bed 12. Monitor skin at least every shift 13. Inspect under medical devices twice a day WOUND TREATMENT RECOMMENDATIONS: Leave open to air per patient request.
[2016-12-31 12:00] VITALS: BP 108/78; BP 125/73
--- NOTE | 2016-12-31 12:20 | NUR ---
Nutritional Support Services Note: Skin tear noted to left upper arm. Regular diet as ordered. Appetite is good for meals. No nutrition intervention needed at this time. Will follow as needed. Alia Perrin
--- NOTE | 2016-12-31 15:37 | NUR ---
DR CHAUHAN IN TO SEE PATIENT.
[2016-12-31 16:00] VITALS: BP 114/65
[2016-12-31 17:48] LABS: CPK 338 U/L (39-308)
[2016-12-31 17:51] LABS: TROPONIN I < 0.015 ng/ml (<0.045)
[2016-12-31 17:53] LABS: CKMB 5.2 ng/ml (0.5-3.6)
--- NOTE | 2016-12-31 19:36 | NUR ---
Discharge instructions reviewed with patient/family. Patient receptive and verbalizes understanding. Follow-up care arranged. Written instructions given to patient/family. Monitor and IV catheter removed. ABBY JONES
== END 2016-12-31 19:36 | disposition home or self-care (01) | DRG 313 ==
LOC: ED 20:28 → 5E 22:29 → EDHOLD 22:29 → 5E 22:40
PROVIDERS: Emergency Medicine; ADMIT Internal Medicine
DX: R07.9 Chest pain, unspecified (principal); I25.10 Atherosclerotic heart disease of native coronary artery without angina pectoris; Z95.811 Presence of heart assist device; I42.0 Dilated cardiomyopathy; F10.20 Alcohol dependence, uncomplicated; F12.10 Cannabis abuse, uncomplicated; I10 Essential (primary) hypertension; G89.4 Chronic pain syndrome; J44.9 Chronic obstructive pulmonary disease, unspecified; M54.5 Low back pain; G43.909 Migraine, unspecified, not intractable, without status migrainosus; F41.1 Generalized anxiety disorder; F17.200 Nicotine dependence, unspecified, uncomplicated; F13.10 Sedative, hypnotic or anxiolytic abuse, uncomplicated; E78.2 Mixed hyperlipidemia; Z95.1 Presence of aortocoronary bypass graft; Z87.01 Personal history of pneumonia (recurrent); Z82.49 Family history of ischemic heart disease and other diseases of the circulatory system; Z88.0 Allergy status to penicillin; Z83.3 Family history of diabetes mellitus; Z88.1 Allergy status to other antibiotic agents; Z91.041 Radiographic dye allergy status; Z91.09 Other allergy status, other than to drugs and biological substances; Z79.82 Long term (current) use of aspirin; Z91.14 Patient's other noncompliance with medication regimen

== ENCOUNTER 2017-01-02 15:33 | Inpatient (IN) | payer OTHER ==
[~2017-01-02] VITALS: Ht 172.7 cm; Wt 72.4 kg
--- NOTE | ~2017-01-02 | DS ---
[place], [place] DISCHARGE SUMMARY NAME: CINDY GRUBER UNIT #: [id number] ROOM: [facility] DOCTOR: RAJESH DAVIS MD BIRTHDATE: [birth year] DOS: 01/03/2017 DISCHARGE DIAGNOSES: Drug overdose. The patient says he was partying and his urine drug screen was positive for barbiturates, benzodiazepines, marijuana and opiates. HOSPITAL COURSE: The patient was obtunded in the Emergency Department and hard to keep him awake. The patient was admitted to the ICU and kept off of sedating medications and he is awake and alert and asymptomatic. History of coronary artery disease, without any chest pain. Severe cardiomyopathy and external defibrillator in place, without any recent shocks since his last admission. Cardiac enzymes were negative. Benign essential hypertension, with controlled blood pressures. Generalized anxiety disorder. Illegal drug abuse including marijuana in the past. Nicotine smoke dependence. Chronic pain syndrome. LABORATORY DATA: Negative cardiac enzymes. Normal serum electrolytes, bilirubin, liver enzymes. Normal PT, PTT. ____ negative. All cardiac enzymes were negative. Urine drug screen as mentioned above. DISCHARGE MANAGEMENT: The patient takes spironolactone 25 mg daily, lisinopril 2.5 mg daily, Zetia 10 mg daily, Plavix 75 mg daily, aspirin 81 mg daily, Protonix 40 mg a day, Seroquel 100 mg at night, Coreg 12.5 mg b.i.d., sublingual nitroglycerins p.r.n. FOLLOWUP: With PCP this week. [place], [place] DISCHARGE SUMMARY NAME: CINDY GRUBER UNIT #: [id number] ROOM: [facility] DOCTOR: RAJESH DAVIS MD BIRTHDATE: [birth year] RAJESH DAVIS MD CM:DISCHARG 1006 [id number] RAJESH DAVIS MD 01/03/17 1034 interface
--- NOTE | ~2017-01-02 | WRIGHTHP ---
[place], [place] PATIENT HISTORY AND PHYSICAL EXAM NAME: CINDY GRUBER [facility] #: [id number] UNIT #: [id number] ROOM: [facility] DOCTOR: RAJESH DAVIS MD BIRTHDATE: [birth year] DOS: 01/02/2017 HISTORY OF PRESENT ILLNESS: The patient is a 46-year-old gentleman with a past medical history of coronary artery disease of the [place] vessels, bypass grafts and a recent stent placement. 1. The patient is wearing an external defibrillator. 2. Dilated cardiomyopathy. 3. Benign essential hypertension. 4. Chronic pain syndrome. 5. Illegal drug abuse including marijuana in the past. 6. Generalized anxiety disorder. 7. Nicotine smoke dependence. The patient presented to the Emergency Department at [facility] today and was seen by ____ when he was found to be excessively drowsy and thought to have accidental drug overdose. The patient has a known history of drug abuse. He is also prescribed large doses of Xanax. Also, he takes hydroxyzine and tramadol. During the last admission, the patient tested positive for multiple drugs and during this ER visit, he is positive for barbiturates, benzodiazepines, marijuana and opiates. On suspicion of accidental drug overdose, the patient was admitted to the ICU for close observation. The patient is waking up and he is asymptomatic in the ICU. The patient says he is not suicidal. No complaints of chest pain, shortness of breath. No GI or urinary symptoms. REVIEW OF SYSTEMS: LUNGS: No increasing shortness of breath or wheezing. GASTROINTESTINAL: No nausea, vomiting, diarrhea, constipation. CARDIOVASCULAR: No chest pain or palpitations. FAMILY HISTORY: Noncontributory. SOCIAL HISTORY: History of drug abuse, smoking cigarettes. FAMILY HISTORY: Noncontributory. HOME MEDICATIONS: Xanax, tramadol, spironolactone, lisinopril, Zetia, Plavix, aspirin, Protonix, Seroquel, Coreg, sublingual nitroglycerin. ALLERGIES: KNOWN ALLERGIES TO IODINE, PENICILLIN, QUINOLONES, INTEGRILIN, CYMBALTA. PHYSICAL EXAMINATION: GENERAL APPEARANCE: The patient is alert and oriented x 3, in no visible distress. HEENT AND NECK: Extraocular movements are intact. Sclerae are anicteric. Oral mucosa is moist and clean. No obvious facial weakness. Neck is supple without any lymphadenopathy. No thyromegaly. No JVD. No carotid arterial bruits. [place], [place] PATIENT HISTORY AND PHYSICAL EXAM NAME: CINDY GRUBER UNIT #: [id number] ROOM: [facility] DOCTOR: RAJESH DAVIS MD BIRTHDATE: [birth year] LUNGS: Clear to auscultation. No wheezing. No rhonchi. CARDIOVASCULAR SYSTEM: Heart rate is regular in rate and rhythm. S1 and S2 normally audible. No significant murmur or any other abnormal cardiac sounds. ABDOMEN: Soft, nontender. No obvious organomegaly. Bowel sounds are present. No obvious herniation. EXTREMITIES: Without significant cyanosis or edema. Warm to touch. CENTRAL NERVOUS SYSTEM: Alert and oriented x 3. Cranial nerves II-XII are intact. Speech is normal. The patient is able to move all extremities. Normal muscle strength. Deep tendon reflexes are equal on both sides. Plantars were downgoing. Standard external defibrillator rest in place. IMPRESSION: 1. The patient has history of significant coronary artery disease and dilated cardiomyopathy, status post recent stenting and previous history of bypass grafts, presently asymptomatic. As a precaution, I am checking start checking his cardiac enzymes. 2. Suspected accidental drug overdose. The patient was excessively drowsy in the Emergency Department, but he does wake up easily in the ICU. I have discontinued his Xanax and tramadol and will watch him in the ICU. 3. Chronic systolic type congestive heart failure, treated with Coreg and lisinopril. The patient also takes Plavix and aspirin for coronary artery disease and he is on spironolactone and lisinopril for chronic systolic type congestive heart failure and is presently asymptomatic. 4. History of illegal drug abuse, will consult social security specialist. 5. Nicotine smoke dependence. The patient encouraged to stop smoking cigarettes. 6. Benign essential hypertension with controlled blood pressure with treatment. RAJESH DAVIS MD CM:HISPHYS:PATIENT HISTORY AND PHYSICAL EXAMINATION 27 46 RAJESH DAVIS MD 01/02/172045 interface
[2017-01-02 15:33] VITALS: BP 136/88
[~2017-01-02 15:33] MED LIST changes: +ALDACTONE25 M1 PO; +ASPIRIN ADULT L81 M2 PO; +COREG12.5 M1 PO; +NATURE'S BLEND F1 MG PO; +NITROGLYCERIN0.4 MG SL; +QUETIAPINE FUM100 M1 PO; +ZETIA10 MG PO
[2017-01-02 15:52] LABS: BASO % 0.3 % (0.0-1.0); EOS # 0.1 10*3/uL (0.0-0.4); EOS % 1.9 % (1.0-4.0); HEMATOCRIT 37.6 % (42.0-52.0); HEMOGLOBIN 12.6 g/dl (14.0-18.0); LYMPH # 1.7 10*3/uL (1.3-4.4); LYMPH % 23.7 % (27.0-41.0); MEAN CELL VOLUME 95.2 fl (80.0-94.0); MEAN CORPUSCULAR HGB 31.9 pg (27.0-31.0); MEAN CORPUSCULAR HGB CONC 33.5 g/dl (33.0-37.0); MEAN PLATELET VOLUME 9.6 fl (9.6-12.3); MONO # 0.4 10*3/uL (0.1-1.0); MONO % 5.7 % (3.0-9.0); PLATELET COUNT AUTOMATED 194 10*3/uL (130-400); RED BLOOD COUNT 3.95 10*6/uL (4.50-5.90); RED CELL DISTRI WIDTH 13.6 % (0-14.5); WHITE BLOOD COUNT 7.4 10*3/uL (4.8-10.8)
[2017-01-02 16:01] LABS: ACT PARTIAL THROMBO TIME 20.5 SECONDS (20.8-31.5)
[2017-01-02 16:08] LABS: ALBUMIN 3.8 gm/dl (3.1-4.5); BUN 12 mg/dl (7-24); CHLORIDE 103 mmol/L (98-107); CREATININE 1.38 mg/dL (0.70-1.30); POTASSIUM 4.4 mmol/L (3.5-5.1); SGOT/AST 27 IU/L (3-35); SGPT/ALT 36 U/L (12-78); SODIUM 138 mmol/L (136-145); TOTAL PROTEIN 7.1 gm/dL (6.4-8.2)
[2017-01-02 16:10] LABS: ALKALINE PHOSPHATASE 62 U/L (45-117); TROPONIN I < 0.015 ng/ml (<0.045)
--- NOTE | 2017-01-02 16:12 | NUR ---
PATIENT FAMILY CONCERNED THAT PATIENT IS TAKING SOMETHING THAT HE IS NOT SUPPOSED TO THAT WILL NOT SHOW UP IN URINE DRUG SCREEN
[2017-01-02 16:37] LABS: BILIRUBIN NEGATIVE (NEGATIVE); BLOOD NEGATIVE (NEGATIVE); CLARITY CLEAR (CLEAR); COLOR YELLOW (YELLOW); GLUCOSE NEGATIVE (NEGATIVE); KETONE NEGATIVE (NEGATIVE); LEUKO ESTERASE NEGATIVE (NEGATIVE); NITRITE NEGATIVE (NEGATIVE); SPECIFIC GRAVITY 1.015 (1.005-1.030); UROBILINOGEN 0.2 E.U./dl (0.2-1.0)
[2017-01-02 16:46] LABS: URINE AMPHETAMINES < 1000 (1000ng/ml); URINE BARBITURATES > 200 (200ng/ml); URINE BENZODIAZEPINES > 200 (200ng/ml); URINE CANNABINOIDS (THC) > 50 (50ng/ml); URINE COCAINE < 300 (300ng/ml); URINE METHADONE < 300 (300ng/ml); URINE OPIATES > 300 (300ng/ml)
[2017-01-02 16:50] LABS: URINE PHENCYCLIDINE < 25 (25ng/ml)
[2017-01-02 16:54] LABS: WBC 0-2 wbc/hpf (0-5)
[2017-01-02 19:00] VITALS: BP 114/71
--- NOTE | 2017-01-02 19:48 | NUR ---
ASIF BELL NOTIFIED OF CONSULT. STATES PATIENT WELL KNOWN TO HER AND SHE HAD SPOKEN TO HIM WHILE HE WAS IN THE ER. WILL FOLLOW. JAKY QUINN RN
--- NOTE | 2017-01-02 19:49 | NUR ---
PT. DID NOT HAVE LIST OF MEDS, REVIEWED LAST ADMISSION MEDS (2 DAYS AGO) WITH PATIENT AND PATIENT AGREED TO ALL CURRENT MEDS.
[2017-01-02 20:00] VITALS: BP 114/71
[2017-01-02 22:18] LABS: ALBUMIN 3.7 gm/dl (3.1-4.5); ALKALINE PHOSPHATASE 59 U/L (45-117); BUN 11 mg/dl (7-24); CHLORIDE 105 mmol/L (98-107); CREATININE 1.27 mg/dL (0.70-1.30); POTASSIUM 4.6 mmol/L (3.5-5.1); SGOT/AST 21 IU/L (3-35); SGPT/ALT 33 U/L (12-78); SODIUM 140 mmol/L (136-145); TOTAL PROTEIN 6.7 gm/dL (6.4-8.2)
[2017-01-03] VITALS: BP 93/65
--- NOTE | 2017-01-03 00:30 | NUR ---
PT RESTING WITH BOTH EYES CLOSED. POX DECREASING INTO THE UPPER 80S WITH O2 @ 2LPM VIA NC. POX INCREASED TO 94% O2 @ 3LPM VIA NC. WILL MONITOR. JAKY QUINN RN
[2017-01-03 04:00] VITALS: BP 97/68
--- NOTE | 2017-01-03 07:27 | NUR ---
Shift chart check completed.
--- NOTE | 2017-01-03 08:00 | NUR ---
ASSESSMENT DONE AT BEDSIDE. PT AAOX3 WITH NO C/O - PER THE PATIENT HE WAS NOT TRYING TO HURT HIMSELF JUST HAD TOO MUCH. ASKED ABOUT MED STABILIZATION PROGRAM AND HE DECLINED SAYING I CAN DO IT MYSELF JUST HAVE TO DO IT. EXPLAINED THAT [facility] CALLED AND THE OUT-PATIENT STRESS TEST FOR TUESDAY WAS BEING CANCELLED D/T ADMISSIN. WILL HAVE TO SEE DR CHAUHAN TO RESCHEDULE.. PT SAID HE WOULD. PER THE PATIENT HE WANTS TO BE DISCHARGED HOME TODAY. PER THE PATIENT WHEN TOLD ASIF BELL WOULD SEE HIM SAID THAT HE ALREADY TALKED TO HER IN ER & THAT HE FOLLOWS WITH HER OUT-PATIENT
--- NOTE | 2017-01-03 08:30 | NUR ---
Netbackup Engineer in to talk to patient. Patient states lives at HOME with HIS MOTHER. There are 15 steps in the home. Physician: [facility] Pharmacy: [facility] Home health services: NONE Patient's level of ADLs: INDEPENDENT Patient has working utilities: YES DME: [facility] Follow-up physician's appointment after d/c: PREFERS TO MAKE HIS OWN Does patient want to access PORTAL?: Discharge plan HOME. [facility]
--- NOTE | 2017-01-03 09:47 | NUR ---
DR DAVIS HERE - ASIF AMAYA HERE - OK TO DC HOME TODAY PER DR DAVIS. AWAITING FORMAL ORDER BUT MONITOR REMOVED. PT TO CONTINUE TO FOLLOW WITH ASIF AMAYA OUTPATIENT
--- NOTE | 2017-01-03 09:47 | NUR ---
met with client who is known to me for many years and is treated at dr gallegos office, i saw this client in the ED as well as iccu, he reports to me each time that he is not suicidal and was actually partying and then began to not feel well and came to the er, he does have heart problems. he is treated for bipolar disorder, this client is not a risk for self harm and he can go home when medically stable, he can follow up at [facility], with myself and dr paul.
--- NOTE | 2017-01-03 10:15 | NUR ---
Hep Lock discontinued. Site asymptomatic. Pressure applied. Sterile dressing applied. Discharge instructions reviewed with patient/family. Patient receptive and verbalizes understanding. Follow-up care arranged. Written instructions given to patient/family. AMBULATED OUT WITH FAMILY & ALL BELONGINGS ELIOT IBARRA
== END 2017-01-03 10:15 | disposition home or self-care (01) | DRG 918 ==
LOC: ED 15:33 → ICCU 18:08 → EDHOLD 18:08 → ICCU 18:17
PROVIDERS: Student in an Organized Health Care Education/Training Program; ADMIT Internal Medicine
DX: T40.601A Poisoning by unspecified narcotics, accidental (unintentional), initial encounter (principal); I11.0 Hypertensive heart disease with heart failure; I42.0 Dilated cardiomyopathy; I50.22 Chronic systolic (congestive) heart failure; T40.7X1A Poisoning by cannabis (derivatives), accidental (unintentional), initial encounter; T42.4X1A Poisoning by benzodiazepines, accidental (unintentional), initial encounter; T42.3X1A Poisoning by barbiturates, accidental (unintentional), initial encounter; G89.4 Chronic pain syndrome; F41.1 Generalized anxiety disorder; F17.200 Nicotine dependence, unspecified, uncomplicated; I25.10 Atherosclerotic heart disease of native coronary artery without angina pectoris; Y92.89 Other specified places as the place of occurrence of the external cause

== ENCOUNTER → 2017-02-01 | Outpatient (CLI) | payer OTHER ==
[~2017-02-01] MED LIST changes: +CAPTOPRIL50 MG PO
--- NOTE | ~2017-02-01 | ST ---
[place], [place] EXERCISE STRESS TEST REPORT [id number] UNIT #: [id number] ROOM: DOCTOR: RYAN CHAUHAN MD BIRTHDATE: [birth year] DOS: 02/01/2017 LEXISCAN PORTION OF THE LEXISCAN CARDIOLITE Baseline cardiogram, sinus rhythm with poor R-wave progression with a completed anterior wall infarct, probably old. 0.4 mg of Lexiscan, duration of 10 seconds. Lexiscan, no new EKG changes. The patient had no chest discomfort. Blood pressure and heart rate response was normal. Nuclear images will be reported separately. RYAN CHAUHAN MD CM:STRESS:EXERCISE STRESS TEST REPORT [id number] RYAN CHAUHAN MD
--- NOTE | 2017-02-01 07:00 | NUR ---
INFORMED CONSENT OBTAINED FOR LEXISCAN NUCLEAR STRESS TEST WITH DR. CHAUHAN. RESTING EKG NSR WITH A RESTING HR OF 77 WITH BP OF 134/90. HAS Q WAVE IN LEADS V1-V3. LUNGS CLEAR WITH SPO2 OF 97% ON ROOM AIR. PT COMPLETED A 1:00 LEXISCAN PROTOCOL RECEIVING LEXISCAN 0.4 MG IV OVER 10 SECONDS. HAD NO CHEST PAIN OR ANY EKG CHANGES. HAD C/O NAUSEA THAT WAS RELIEVED IN RECOVERY. HAD A PEAK HR OF 93 WITH BP OF 120/64. LAST RECOVERY HR OF 93 WITH BP FO 118/68. AWAITING SCANNING IN STABLE CONDITION.
== END | disposition home or self-care (01) ==
LOC: CARD 01:32
DX: I51.7 Cardiomegaly (principal)

== ENCOUNTER 2017-02-28 20:34 | Emergency (ER) | payer OTHER ==
[~2017-02-28] VITALS: Ht 172.7 cm; Wt 77.1 kg
[2017-02-28 20:58] LABS: BASO % 0.3 % (0.0-1.0); EOS # 0.1 10*3/uL (0.0-0.4); EOS % 0.8 % (1.0-4.0); HEMATOCRIT 35.4 % (42.0-52.0); HEMOGLOBIN 12.1 g/dl (14.0-18.0); LYMPH % 27.9 % (27.0-41.0); MEAN CELL VOLUME 93.4 fl (80.0-94.0); MEAN CORPUSCULAR HGB 31.9 pg (27.0-31.0); MEAN CORPUSCULAR HGB CONC 34.2 g/dl (33.0-37.0); MEAN PLATELET VOLUME 9.5 fl (9.6-12.3); MONO # 0.5 10*3/uL (0.1-1.0); MONO % 6.6 % (3.0-9.0); NEUT # 4.7 10*3/uL (2.3-7.9); NEUT % 64.1 % (47.0-73.0); PLATELET COUNT AUTOMATED 205 10*3/uL (130-400); RED BLOOD COUNT 3.79 10*6/uL (4.50-5.90); RED CELL DISTRI WIDTH 13.6 % (0-14.5); WHITE BLOOD COUNT 7.3 10*3/uL (4.8-10.8)
[2017-02-28 21:09] LABS: ACT PARTIAL THROMBO TIME 23.5 SECONDS (20.8-31.5); INTERNATIONAL NORM RATIO 1.1 (2.0-3.5)
[2017-02-28 21:16] LABS: ALBUMIN 3.7 gm/dl (3.1-4.5); ALKALINE PHOSPHATASE 75 U/L (45-117); BUN 6 mg/dl (7-24); CHLORIDE 107 mmol/L (98-107); CREATININE 1.41 mg/dL (0.70-1.30); POTASSIUM 4.1 mmol/L (3.5-5.1); SGOT/AST 21 IU/L (3-35); SGPT/ALT 37 U/L (12-78); SODIUM 141 mmol/L (136-145); TOTAL PROTEIN 6.8 gm/dL (6.4-8.2); TROPONIN I < 0.015 ng/ml (<0.045)
== END 2017-02-28 23:47 | disposition home or self-care (01) ==
LOC: ED 20:34
PROVIDERS: Student in an Organized Health Care Education/Training Program
DX: R07.89 Other chest pain (principal); F17.200 Nicotine dependence, unspecified, uncomplicated; Z95.1 Presence of aortocoronary bypass graft; Z98.890 Other specified postprocedural states; Z79.899 Other long term (current) drug therapy; Z79.82 Long term (current) use of aspirin; Z91.041 Radiographic dye allergy status; Z88.8 Allergy status to other drugs, medicaments and biological substances; Z88.1 Allergy status to other antibiotic agents

== ENCOUNTER 2017-03-20 10:26 | Inpatient (IN) | payer OTHER ==
[~2017-03-20] VITALS: Ht 172.7 cm; Wt 82.6 kg
--- NOTE | ~2017-03-20 | EKG ---
[place], [place] ELECTROCARDIOGRAM REPORT NAME: CINDY GRUBER UNIT #: [id number] ROOM: 504 DOCTOR: TROY AUGUSTINE MD BIRTHDATE: [birth year] DOS: 03/20/2017 TIME: 1100 hours. Normal sinus rhythm at 72 beats per minute. Low voltage in limb leads. The tracing is otherwise normal. No previous tracing is available for comparison. TROY AUGUSTINE MD CM:EKGRPT:ELECTROCARDIOGRAM REPORT [id number] TROY AUGUSTINE MD
[2017-03-20 10:34] VITALS: BP 130/82
[2017-03-20 11:14] LABS: BASO % 0.5 % (0.0-1.0); EOS # 0.2 10*3/uL (0.0-0.4); EOS % 3.2 % (1.0-4.0); HEMATOCRIT 38.9 % (42.0-52.0); HEMOGLOBIN 13.2 g/dl (14.0-18.0); LYMPH # 1.9 10*3/uL (1.3-4.4); LYMPH % 28.9 % (27.0-41.0); MEAN CORPUSCULAR HGB 32.6 pg (27.0-31.0); MEAN CORPUSCULAR HGB CONC 33.9 g/dl (33.0-37.0); MEAN PLATELET VOLUME 10.4 fl (9.6-12.3); MONO # 0.5 10*3/uL (0.1-1.0); MONO % 7.1 % (3.0-9.0); PLATELET COUNT AUTOMATED 243 10*3/uL (130-400); RED BLOOD COUNT 4.05 10*6/uL (4.50-5.90); RED CELL DISTRI WIDTH 13.8 % (0-14.5); WHITE BLOOD COUNT 6.6 10*3/uL (4.8-10.8)
[2017-03-20 11:26] LABS: ACT PARTIAL THROMBO TIME 24.1 SECONDS (20.8-31.5)
[2017-03-20 11:30] LABS: ALBUMIN 3.8 gm/dl (3.1-4.5); ALKALINE PHOSPHATASE 79 U/L (45-117); BUN 8 mg/dl (7-24); CHLORIDE 107 mmol/L (98-107); CREATININE 1.32 mg/dL (0.70-1.30); LIPASE 140 U/L (73-393); POTASSIUM 4.5 mmol/L (3.5-5.1); SGOT/AST 28 IU/L (3-35); SGPT/ALT 31 U/L (12-78); SODIUM 141 mmol/L (136-145); TOTAL PROTEIN 7.3 gm/dL (6.4-8.2); TROPONIN I 0.015 ng/ml (<0.045)
[2017-03-20 11:35] LABS: ETHYL ALCOHOL < 3.0 mg/dl (<3)
[2017-03-20 12:56] VITALS: BP 110/69
[2017-03-20 14:14] VITALS: BP 126/78
[2017-03-20 16:00] VITALS: BP 126/70
== END 2017-03-20 18:21 | disposition left against medical advice (07) | DRG 312 ==
LOC: ED 10:26 → EDHOLD 12:50 → 5E 12:58
PROVIDERS: Emergency Medicine
DX: R55 Syncope and collapse (principal); G43.909 Migraine, unspecified, not intractable, without status migrainosus; I25.10 Atherosclerotic heart disease of native coronary artery without angina pectoris; G89.29 Other chronic pain; M54.9 Dorsalgia, unspecified; Z53.21 Procedure and treatment not carried out due to patient leaving prior to being seen by health care provider; J44.9 Chronic obstructive pulmonary disease, unspecified; Z79.899 Other long term (current) drug therapy; Z88.1 Allergy status to other antibiotic agents; Z91.041 Radiographic dye allergy status; Z95.1 Presence of aortocoronary bypass graft; Z95.5 Presence of coronary angioplasty implant and graft; Z83.3 Family history of diabetes mellitus; Z82.49 Family history of ischemic heart disease and other diseases of the circulatory system; Z87.440 Personal history of urinary (tract) infections; Z87.828 Personal history of other (healed) physical injury and trauma; Z87.81 Personal history of (healed) traumatic fracture; Z87.01 Personal history of pneumonia (recurrent); Z79.82 Long term (current) use of aspirin

== ENCOUNTER 2017-04-20 00:54 | Emergency (ER) | payer OTHER ==
[~2017-04-20] VITALS: Ht 175.2 cm; Wt 77.1 kg
[2017-04-20 01:49] LABS: BASO % 0.4 % (0.0-1.0); EOS # 0.3 10*3/uL (0.0-0.4); EOS % 2.9 % (1.0-4.0); HEMATOCRIT 39.4 % (42.0-52.0); HEMOGLOBIN 13.5 g/dl (14.0-18.0); LYMPH # 2.6 10*3/uL (1.3-4.4); LYMPH % 28.4 % (27.0-41.0); MEAN CELL VOLUME 95.9 fl (80.0-94.0); MEAN CORPUSCULAR HGB 32.8 pg (27.0-31.0); MEAN CORPUSCULAR HGB CONC 34.3 g/dl (33.0-37.0); MEAN PLATELET VOLUME 11.1 fl (9.6-12.3); MONO # 0.8 10*3/uL (0.1-1.0); MONO % 8.2 % (3.0-9.0); NEUT # 5.5 10*3/uL (2.3-7.9); NEUT % 59.8 % (47.0-73.0); PLATELET COUNT AUTOMATED 188 10*3/uL (130-400); RED BLOOD COUNT 4.11 10*6/uL (4.50-5.90); RED CELL DISTRI WIDTH 13.3 % (0-14.5); WHITE BLOOD COUNT 9.2 10*3/uL (4.8-10.8)
[2017-04-20 01:59] LABS: ACT PARTIAL THROMBO TIME 24.1 SECONDS (20.8-31.5)
[2017-04-20 02:05] LABS: ALBUMIN 3.7 gm/dl (3.1-4.5); ALKALINE PHOSPHATASE 91 U/L (45-117); BUN 5 mg/dl (7-24); CHLORIDE 108 mmol/L (98-107); CREATININE 1.12 mg/dL (0.70-1.30); SGOT/AST 22 IU/L (3-35); SGPT/ALT 29 U/L (12-78); SODIUM 144 mmol/L (136-145); TOTAL PROTEIN 7.1 gm/dL (6.4-8.2)
[2017-04-20 02:06] LABS: TROPONIN I 0.034 ng/ml (<0.045)
[2017-04-20] MEDS ORDERED: TAMIFLU 75MG CA75 MG PO (03:35)
[2017-04-20] MEDS ORDERED: ZITHROMAX250 MG PO (03:35)
== END 2017-04-20 04:11 | disposition home or self-care (01) ==
LOC: ED 00:54
PROVIDERS: Emergency Medicine Emergency Medical Services
DX: J11.1 Influenza due to unidentified influenza virus with other respiratory manifestations (principal); J40 Bronchitis, not specified as acute or chronic; I25.10 Atherosclerotic heart disease of native coronary artery without angina pectoris; G43.909 Migraine, unspecified, not intractable, without status migrainosus; Z91.041 Radiographic dye allergy status; Z88.1 Allergy status to other antibiotic agents; Z88.8 Allergy status to other drugs, medicaments and biological substances; Z79.82 Long term (current) use of aspirin; Z79.899 Other long term (current) drug therapy

== ENCOUNTER 2017-04-29 22:52 | Emergency (ER) | payer OTHER ==
[~2017-04-29] VITALS: Ht 170.1 cm; Wt 72.6 kg
[~2017-04-29 22:52] MED LIST changes: +TAMIFLU 75MG CA75 MG PO
[2017-04-29 23:10] LABS: BASO % 0.4 % (0.0-1.0); EOS # 0.1 10*3/uL (0.0-0.4); EOS % 1.2 % (1.0-4.0); HEMATOCRIT 38.6 % (42.0-52.0); HEMOGLOBIN 13.2 g/dl (14.0-18.0); LYMPH # 2.7 10*3/uL (1.3-4.4); LYMPH % 35.1 % (27.0-41.0); MEAN CELL VOLUME 94.6 fl (80.0-94.0); MEAN CORPUSCULAR HGB 32.4 pg (27.0-31.0); MEAN CORPUSCULAR HGB CONC 34.2 g/dl (33.0-37.0); MEAN PLATELET VOLUME 10.5 fl (9.6-12.3); MONO # 0.5 10*3/uL (0.1-1.0); MONO % 6.2 % (3.0-9.0); NEUT # 4.3 10*3/uL (2.3-7.9); PLATELET COUNT AUTOMATED 220 10*3/uL (130-400); RED BLOOD COUNT 4.08 10*6/uL (4.50-5.90); RED CELL DISTRI WIDTH 12.9 % (0-14.5); WHITE BLOOD COUNT 7.6 10*3/uL (4.8-10.8)
[2017-04-29 23:21] LABS: ACT PARTIAL THROMBO TIME 23.4 SECONDS (20.8-31.5); INTERNATIONAL NORM RATIO 1.1 (2.0-3.5)
[2017-04-29 23:29] LABS: ALBUMIN 4.1 gm/dl (3.1-4.5); ALKALINE PHOSPHATASE 77 U/L (45-117); BUN 10 mg/dl (7-24); CHLORIDE 105 mmol/L (98-107); CREATININE 1.32 mg/dL (0.70-1.30); POTASSIUM 4.6 mmol/L (3.5-5.1); SGOT/AST 20 IU/L (3-35); SGPT/ALT 21 U/L (12-78); SODIUM 141 mmol/L (136-145); TOTAL PROTEIN 7.1 gm/dL (6.4-8.2)
[2017-04-29 23:31] LABS: TROPONIN I < 0.015 ng/ml (<0.045)
== END 2017-04-30 01:30 | disposition short-term general hospital (02) ==
LOC: ED 22:52
PROVIDERS: Emergency Medicine Emergency Medical Services
DX: R07.89 Other chest pain (principal); I25.10 Atherosclerotic heart disease of native coronary artery without angina pectoris; F12.10 Cannabis abuse, uncomplicated; Z79.82 Long term (current) use of aspirin; Z79.899 Other long term (current) drug therapy; Z91.041 Radiographic dye allergy status; Z95.1 Presence of aortocoronary bypass graft; Z98.890 Other specified postprocedural states; Z88.1 Allergy status to other antibiotic agents; Z88.8 Allergy status to other drugs, medicaments and biological substances

== ENCOUNTER 2017-07-26 02:19 | Inpatient (IN) | payer OTHER ==
[~2017-07-26] VITALS: Ht 175.2 cm; Wt 76.4 kg
[2017-07-26] VITALS (8 sets, daily range): BP systolic 96–128; BP diastolic 67–84
--- NOTE | ~2017-07-26 | WRIGHTHP ---
[place], [place] PATIENT HISTORY AND PHYSICAL EXAM NAME: CINDY GRUBER [facility] #: [id number] UNIT #: [id number] ROOM: 412 DOCTOR: CHEYENNE JOVEL MD BIRTHDATE: [birth year] DOS: 07/26/2017 HISTORY OF PRESENT ILLNESS: The patient is a 47-year-old. The patient was found at a bar, drinking when he complained of chest pain. Ambulance brought him to the Emergency Room. He was admitted early this morning, is in bed, almost lethargic. It was very difficult to arouse him. Difficult to ask any questions this morning, he was unable to answer most of it. He was inebriated with an alcohol level of 146. He has not had any complaints since he got admitted to the floor. PAST MEDICAL HISTORY: Significant for; 1. Severe coronary artery disease with history of coronary artery bypass graft. 2. Cardiomyopathy, awaiting AICD placement. He was supposed to have it done tomorrow. 3. Coronary artery disease. 4. Chronic pain. 5. History of drug abuse. 6. Generalized anxiety disorder. 7. Alcohol abuse. 8. Bipolar disorder. MEDICATIONS: That he is on are aspirin, Xanax, captopril, Coreg, folic acid, gabapentin, Protonix, Seroquel, tramadol, nitroglycerin. SOCIAL HISTORY: Smoker of about a pack of cigarettes and difficult to know how much he drinks, but he was inebriated when he arrived. PHYSICAL EXAMINATION: VITAL SIGNS: Graphic trend shows a pressure of 124/79, pulse of 71, respirations 20, temperature 97.6. LUNGS: Scattered rhonchi heard. HEART: Regular. ABDOMEN: Obese, soft. EXTREMITIES: Without any edema. ASSESSMENT AND PLAN: 1. Chronic alcoholism with acute alcohol intoxication. Patient is admitted. We will start him on a slow intravenous hydration for 24 hours. 2. Dilated cardiomyopathy. The patient is awaiting automatic implantable cardioverter-defibrillator placement. Discussed with Dr. Flannery who will transfer him to [facility] in the morning under Dr. Andujar's services. We will give him a call. 3. Chest pain, ruled out for myocardial infarction. Recently, had a stress test which was negative recently, so no further cardiac workup being done in the hospital. 4. Bipolar disorder with generalized anxiety disorder. Continue his home meds. [place], [place] PATIENT HISTORY AND PHYSICAL EXAM NAME: CINDY GRUBER UNIT #: [id number] ROOM: 412 DOCTOR: CHEYENNE JOVEL MD BIRTHDATE: [birth year] CHEYENNE JOVEL MD CM:HISPHYS:PATIENT HISTORY AND PHYSICAL EXAMINATION 1 CHEYENNE JOVEL MD 08/03/17 0817 interface
[2017-07-26 02:40] LABS: BASO % 0.1 % (0.0-1.0); EOS % 0.2 % (1.0-4.0); HEMATOCRIT 37.1 % (42.0-52.0); HEMOGLOBIN 12.5 g/dl (14.0-18.0); LYMPH # 2.1 10*3/uL (1.3-4.4); LYMPH % 23.7 % (27.0-41.0); MEAN CELL VOLUME 99.5 fl (80.0-94.0); MEAN CORPUSCULAR HGB 33.5 pg (27.0-31.0); MEAN CORPUSCULAR HGB CONC 33.7 g/dl (33.0-37.0); MEAN PLATELET VOLUME 9.9 fl (9.6-12.3); MONO # 0.5 10*3/uL (0.1-1.0); MONO % 5.8 % (3.0-9.0); NEUT # 6.1 10*3/uL (2.3-7.9); NEUT % 69.7 % (47.0-73.0); PLATELET COUNT AUTOMATED 185 10*3/uL (130-400); RED BLOOD COUNT 3.73 10*6/uL (4.50-5.90); RED CELL DISTRI WIDTH 15.4 % (0-14.5); WHITE BLOOD COUNT 8.8 10*3/uL (4.8-10.8)
[2017-07-26 02:50] LABS: ACT PARTIAL THROMBO TIME 20.7 SECONDS (20.8-31.5)
[2017-07-26 02:56] LABS: ALKALINE PHOSPHATASE 65 U/L (45-117); BUN 10 mg/dl (7-24); CHLORIDE 108 mmol/L (98-107); POTASSIUM 3.9 mmol/L (3.5-5.1); SGOT/AST 22 IU/L (3-35); SGPT/ALT 32 U/L (12-78); SODIUM 146 mmol/L (136-145)
[2017-07-26 03:02] LABS: TROPONIN I < 0.015 ng/ml (<0.045)
[2017-09-11] MEDS ORDERED: KEPPRA500 MG PO (14:41)
== END 2017-07-26 15:29 | disposition home or self-care (01) | DRG 313 ==
LOC: ED 02:19 → EDHOLD 04:12 → 4E 04:12
PROVIDERS: Emergency Medicine
DX: R07.9 Chest pain, unspecified (principal); I25.10 Atherosclerotic heart disease of native coronary artery without angina pectoris; I42.0 Dilated cardiomyopathy; E87.1 Hypo-osmolality and hyponatremia; F10.229 Alcohol dependence with intoxication, unspecified; Y90.6 Blood alcohol level of 120-199 mg/100 ml; F31.9 Bipolar disorder, unspecified; F17.210 Nicotine dependence, cigarettes, uncomplicated; G89.29 Other chronic pain; G43.909 Migraine, unspecified, not intractable, without status migrainosus; J44.9 Chronic obstructive pulmonary disease, unspecified; F12.10 Cannabis abuse, uncomplicated; F41.1 Generalized anxiety disorder; Z79.82 Long term (current) use of aspirin; Z79.899 Other long term (current) drug therapy; Z88.8 Allergy status to other drugs, medicaments and biological substances; Z88.1 Allergy status to other antibiotic agents; Z91.041 Radiographic dye allergy status; Z95.1 Presence of aortocoronary bypass graft; Z82.49 Family history of ischemic heart disease and other diseases of the circulatory system; Z83.3 Family history of diabetes mellitus; Z80.9 Family history of malignant neoplasm, unspecified; Z84.89 Family history of other specified conditions; Z91.81 History of falling; Z87.01 Personal history of pneumonia (recurrent); Z87.440 Personal history of urinary (tract) infections

== ENCOUNTER 2017-08-24 11:41 | Emergency (ER) | payer OTHER ==
[~2017-08-24] VITALS: Ht 177.8 cm; Wt 77.1 kg
[2017-08-24 12:09] LABS: BASO % 0.3 % (0.0-1.0); EOS # 0.1 10*3/uL (0.0-0.4); EOS % 1.1 % (1.0-4.0); HEMATOCRIT 40.7 % (42.0-52.0); HEMOGLOBIN 13.5 g/dl (14.0-18.0); LYMPH # 1.8 10*3/uL (1.3-4.4); LYMPH % 18.5 % (27.0-41.0); MEAN CELL VOLUME 100.7 fl (80.0-94.0); MEAN CORPUSCULAR HGB 33.4 pg (27.0-31.0); MEAN CORPUSCULAR HGB CONC 33.2 g/dl (33.0-37.0); MEAN PLATELET VOLUME 9.6 fl (9.6-12.3); MONO # 0.7 10*3/uL (0.1-1.0); MONO % 7.5 % (3.0-9.0); PLATELET COUNT AUTOMATED 190 10*3/uL (130-400); RED BLOOD COUNT 4.04 10*6/uL (4.50-5.90); RED CELL DISTRI WIDTH 14.3 % (0-14.5); WHITE BLOOD COUNT 9.7 10*3/uL (4.8-10.8)
[2017-08-24 12:19] LABS: ACT PARTIAL THROMBO TIME 20.9 SECONDS (20.8-31.5)
[2017-08-24 12:25] LABS: ALKALINE PHOSPHATASE 75 U/L (45-117); BUN 17 mg/dl (7-24); CHLORIDE 101 mmol/L (98-107); CREATININE 1.49 mg/dL (0.70-1.30); POTASSIUM 5.4 mmol/L (3.5-5.1); SGOT/AST 17 IU/L (3-35); SGPT/ALT 23 U/L (12-78); SODIUM 137 mmol/L (136-145); TOTAL PROTEIN 7.4 gm/dL (6.4-8.2)
[2017-08-24 12:27] LABS: ETHYL ALCOHOL < 3.0 mg/dl (<3); TROPONIN I < 0.015 ng/ml (<0.045)
[2017-08-24] MEDS ORDERED: IMDUR SA60 MG PO (12:27)
[2017-08-24] MEDS ORDERED: SINEQUAN25 MG PO (12:27)
[2017-08-24] MEDS ORDERED: LISINOPRIL2.5 MG PO (12:27)
[2017-09-11] MEDS ORDERED: KEPPRA500 MG PO (14:41)
== END 2017-08-24 15:17 | disposition home or self-care (01) ==
LOC: ED 11:41
PROVIDERS: Emergency Medicine
DX: E87.5 Hyperkalemia (principal); F12.10 Cannabis abuse, uncomplicated; G43.909 Migraine, unspecified, not intractable, without status migrainosus; I25.10 Atherosclerotic heart disease of native coronary artery without angina pectoris; F17.200 Nicotine dependence, unspecified, uncomplicated; Z79.82 Long term (current) use of aspirin; Z79.899 Other long term (current) drug therapy; Z91.041 Radiographic dye allergy status; Z88.1 Allergy status to other antibiotic agents; Z95.1 Presence of aortocoronary bypass graft; Z98.890 Other specified postprocedural states; Z95.5 Presence of coronary angioplasty implant and graft; Z88.8 Allergy status to other drugs, medicaments and biological substances

== ENCOUNTER 2017-09-01 18:11 | Emergency (ER) | payer OTHER ==
[~2017-09-01] VITALS: Ht 175.2 cm; Wt 77.1 kg
--- NOTE | ~2017-09-01 | EKG ---
[place], [place] ELECTROCARDIOGRAM REPORT NAME: CINDY GRUBER UNIT #: [id number] ROOM: DOCTOR: MARCELO DRAFT REPORT BIRTHDATE: [birth year] [facility] Test Date: 2017-09-01 Test Time: 18:41:10 Pat Name: CINDY GRUBER Department: Room: Gender: Passenger Screener: OLIVER : 1970 Requested By: LEYLA MARIA Order Number: [id number] Reading MD: Blu Friedman MD Measurements Intervals [place] Rate: 87 P: 40 [place]: 171 QRS: -30 QRSD: 106 T: 40 QT: 346 QTc: 417 Interpretive Statements Sinus rhythm Probable left atrial enlargement Anteroseptal infarct, old Minimal ST depression, lateral leads Abnormal EKG. Electronically Signed On 09-02-2017 11:45:46 PDT by Blu Friedman MD CM:EKGRPT:ELECTROCARDIOGRAM REPORT [id number] 1145 LEYLA ROBERTSON DRAFT REPORT LEYLA MARIA M.D.
[~2017-09-01 18:11] MED LIST changes: +IMDUR SA60 MG PO; +SINEQUAN25 MG PO
[2017-09-01 18:50] LABS: BASO % 0.4 % (0.0-1.0); EOS # 0.1 10*3/uL (0.0-0.4); EOS % 1.1 % (1.0-4.0); HEMATOCRIT 39.4 % (42.0-52.0); HEMOGLOBIN 13.7 g/dl (14.0-18.0); LYMPH # 1.5 10*3/uL (1.3-4.4); LYMPH % 18.1 % (27.0-41.0); MEAN CELL VOLUME 98.3 fl (80.0-94.0); MEAN CORPUSCULAR HGB 34.2 pg (27.0-31.0); MEAN CORPUSCULAR HGB CONC 34.8 g/dl (33.0-37.0); MONO # 0.5 10*3/uL (0.1-1.0); MONO % 6.6 % (3.0-9.0); NEUT # 5.9 10*3/uL (2.3-7.9); NEUT % 73.4 % (47.0-73.0); PLATELET COUNT AUTOMATED 168 10*3/uL (130-400); RED BLOOD COUNT 4.01 10*6/uL (4.50-5.90); RED CELL DISTRI WIDTH 13.7 % (0-14.5)
[2017-09-01 19:06] LABS: ALBUMIN 3.9 gm/dl (3.1-4.5); ALKALINE PHOSPHATASE 69 U/L (45-117); BUN 11 mg/dl (7-24); CHLORIDE 104 mmol/L (98-107); CREATININE 1.38 mg/dL (0.70-1.30); POTASSIUM 4.2 mmol/L (3.5-5.1); SGOT/AST 12 IU/L (3-35); SGPT/ALT 21 U/L (12-78); SODIUM 138 mmol/L (136-145); TOTAL PROTEIN 7.3 gm/dL (6.4-8.2)
[2017-09-01 19:08] LABS: ETHYL ALCOHOL < 3.0 mg/dl (<3)
[2017-09-01 21:46] LABS: URINE AMPHETAMINES < 1000 (1000ng/ml); URINE BARBITURATES < 200 (200ng/ml); URINE BENZODIAZEPINES > 200 (200ng/ml); URINE CANNABINOIDS (THC) > 50 (50ng/ml); URINE COCAINE < 300 (300ng/ml); URINE METHADONE < 300 (300ng/ml); URINE OPIATES < 300 (300ng/ml); URINE PHENCYCLIDINE < 25 (25ng/ml)
[2017-09-11] MEDS ORDERED: KEPPRA500 MG PO (14:41)
== END 2017-09-01 21:29 | disposition short-term general hospital (02) ==
LOC: ED 18:11
PROVIDERS: Emergency Medicine
DX: R56.9 Unspecified convulsions (principal); I25.10 Atherosclerotic heart disease of native coronary artery without angina pectoris; F12.10 Cannabis abuse, uncomplicated; G43.909 Migraine, unspecified, not intractable, without status migrainosus; Z95.1 Presence of aortocoronary bypass graft; Z98.890 Other specified postprocedural states; Z79.899 Other long term (current) drug therapy; Z91.041 Radiographic dye allergy status; Z88.1 Allergy status to other antibiotic agents; Z88.8 Allergy status to other drugs, medicaments and biological substances; Z79.82 Long term (current) use of aspirin

== ENCOUNTER 2017-09-18 10:31 | Emergency (ER) | payer OTHER ==
[~2017-09-18] VITALS: Ht 175.2 cm; Wt 83.0 kg
--- NOTE | ~2017-09-18 | EKG ---
[place], [place] ELECTROCARDIOGRAM REPORT NAME: CINDY GRUBER UNIT #: [id number] ROOM: DOCTOR: EPIPHANY DRAFT REPORT BIRTHDATE: [birth year] [facility] Test Date: 2017-09-18 Test Time: 10:48:44 Pat Name: CINDY GRUBER Department: Room: Gender: Casting Associate: : 1970 Requested By: ALAN KRAMER Order Number: [id number] Reading MD: Josh Holt MD Measurements Intervals [place] Rate: 77 P: 22 [place]: 173 QRS: -13 QRSD: 84 T: 30 QT: 365 QTc: 414 Interpretive Statements Sinus rhythm Probable left atrial enlargement Anterior infarct, old Compared to ECG 09/11/2017 16:17:41 ST (T wave) deviation no longer present Myocardial infarct finding still present Electronically Signed On 09-19-2017 10:19:53 PDT by Josh Holt MD CM:EKGRPT:ELECTROCARDIOGRAM REPORT 1048 1019 ALAN ROBERTSON DRAFT REPORT ALAN KRAMER MD
[2017-09-18 10:50] LABS: BASO % 0.4 % (0.0-1.0); EOS # 0.2 10*3/uL (0.0-0.4); EOS % 1.6 % (1.0-4.0); HEMOGLOBIN 12.4 g/dl (14.0-18.0); LYMPH # 2.5 10*3/uL (1.3-4.4); LYMPH % 27.4 % (27.0-41.0); MEAN CELL VOLUME 101.1 fl (80.0-94.0); MEAN CORPUSCULAR HGB 33.9 pg (27.0-31.0); MEAN CORPUSCULAR HGB CONC 33.5 g/dl (33.0-37.0); MEAN PLATELET VOLUME 10.2 fl (9.6-12.3); MONO # 0.5 10*3/uL (0.1-1.0); MONO % 5.9 % (3.0-9.0); NEUT # 5.8 10*3/uL (2.3-7.9); NEUT % 63.7 % (47.0-73.0); PLATELET COUNT AUTOMATED 205 10*3/uL (130-400); RED BLOOD COUNT 3.66 10*6/uL (4.50-5.90); RED CELL DISTRI WIDTH 13.4 % (0-14.5); WHITE BLOOD COUNT 9.1 10*3/uL (4.8-10.8)
[2017-09-18 11:09] LABS: BUN 10 mg/dl (7-24); CHLORIDE 107 mmol/L (98-107); POTASSIUM 4.1 mmol/L (3.5-5.1); SODIUM 143 mmol/L (136-145); TROPONIN I < 0.015 ng/ml (<0.045)
[2017-09-18] MEDS ORDERED: DELTASONE20 M1 PO (11:33)
[2017-09-18] MEDS ORDERED: VIBRAMYCIN100 MG PO (11:33)
[2017-09-18] MEDS ORDERED: AEROECLIPSE II1 EACH MC (11:37)
[2017-09-18] MEDS ORDERED: VENTOLIN 02.5 MG/3 M INH (11:37)
[2017-09-18] MEDS ORDERED: Ipratropium Brom3 ML INH (11:37)
== END 2017-09-18 12:05 | disposition home or self-care (01) ==
LOC: ED 10:31
PROVIDERS: Emergency Medicine
DX: J44.9 Chronic obstructive pulmonary disease, unspecified (principal); R09.1 Pleurisy; I25.10 Atherosclerotic heart disease of native coronary artery without angina pectoris; Z91.041 Radiographic dye allergy status; Z88.1 Allergy status to other antibiotic agents; Z88.8 Allergy status to other drugs, medicaments and biological substances; Z79.899 Other long term (current) drug therapy; Z79.82 Long term (current) use of aspirin; Z95.1 Presence of aortocoronary bypass graft

== ENCOUNTER 2017-11-22 14:54 | Inpatient (IN) | payer OTHER ==
[~2017-11-22] VITALS: Ht 175.2 cm; Wt 78.0 kg
[2017-11-22] VITALS (7 sets, daily range): BP systolic 112–150; BP diastolic 74–83
--- NOTE | ~2017-11-22 | EKG ---
[place], [place] ELECTROCARDIOGRAM REPORT NAME: CINDY GRUBER UNIT #: [id number] ROOM: 503 DOCTOR: MARCELO DRAFT REPORT BIRTHDATE: [birth year] [facility] Test Date: 2017-11-22 Test Time: 21:19:08 Pat Name: CINDY GRUBER Department: Room: 503 Gender: M Box Spinner: Leandra Gerard : 1970 Requested By: JAYLEEN KING DNP Order Number: [id number] Reading MD: Carlos Flannery MD Measurements Intervals [place] Rate: 68 P: 46 [place]: 189 QRS: -5 QRSD: 94 T: 70 QT: 403 QTc: 429 Interpretive Statements Sinus rhythm Probable left atrial enlargement Anteroseptal infarct, old Baseline wander in lead(s) II,aVF,V4,V5 Compared to ECG 09/18/2017 10:48:44 No significant changes Electronically Signed On 11-24-2017 8:34:33 PDT by Carlos Flannery MD CM:EKGRPT:ELECTROCARDIOGRAM REPORT 18 0834 JAYLEEN KING DNP EPIPHANY DRAFT REPORT JAYLEEN KING DNP
--- NOTE | ~2017-11-22 | EKG ---
[place], [place] ELECTROCARDIOGRAM REPORT NAME: CINDY GRUBER UNIT #: [id number] ROOM: 503 DOCTOR: MARCELO DRAFT REPORT BIRTHDATE: [birth year] [facility] Test Date: 2017-11-22 Test Time: 14:57:39 Pat Name: CINDY GRUBER Department: Room: 503 Gender: M Supervisor Cloth Winding: Leandra Gerard : 1970 Requested By: LEYLA MARIA Order Number: [id number] Reading MD: Carlos Flannery MD Measurements Intervals [place] Rate: 70 P: 39 [place]: 188 QRS: -19 QRSD: 132 T: 63 QT: 392 QTc: 423 Interpretive Statements Sinus rhythm Left atrial enlargement Nonspecific intraventricular conduction delay Anteroseptal infarct, age indeterminate Baseline wander in lead(s) V2 Compared to ECG 09/18/2017 10:48:44 Intraventricular conduction delay now present Myocardial infarct finding still present Electronically Signed On 11-24-2017 8:34:19 PDT by Carlos Flannery MD CM:EKGRPT:ELECTROCARDIOGRAM REPORT 1457 0834 LEYLA ROBERTSON DRAFT REPORT LEYLA MARIA M.D.
--- NOTE | ~2017-11-22 | EKG ---
[place], [place] ELECTROCARDIOGRAM REPORT NAME: CINDY GRUBER UNIT #: [id number] ROOM: 503 DOCTOR: MARCELO DRAFT REPORT BIRTHDATE: [birth year] [facility] Test Date: 2017-11-22 Test Time: 17:23:36 Pat Name: CINDY GRUBER Department: Room: 503 Gender: M Industrial Aerial Installer: Leandra Gerard : 1970 Requested By: JAYLEEN KING DNP Order Number: [id number] Reading MD: Carlos Flannery MD Measurements Intervals [place] Rate: 66 P: 38 [place]: 192 QRS: -24 QRSD: 102 T: 28 QT: 408 QTc: 428 Interpretive Statements Sinus rhythm Left atrial enlargement Borderline left axis deviation Anterior infarct, old Baseline wander in lead(s) II,III,aVF Compared to ECG 09/18/2017 10:48:44 No significant changes Electronically Signed On 11-24-2017 8:34:27 PDT by Carlos Flannery MD CM:EKGRPT:ELECTROCARDIOGRAM REPORT 1723 0834 JAYLEEN KING DNP EPIPHANY DRAFT REPORT JAYLEEN KING DNP
--- NOTE | ~2017-11-22 | WRIGHTHP ---
[place], [place] PATIENT HISTORY AND PHYSICAL EXAM NAME: CINDY GRUBER [facility] #: [id number] UNIT #: [id number] ROOM: 503 DOCTOR: CHEYENNE JOVEL MD BIRTHDATE: [birth year] DOS: 11/22/2017 HISTORY OF PRESENT ILLNESS: The patient is very well known to me. The patient states that he has experienced a shock-like sensation in his chest and is out of the AICD, was responsible for that, so he decided he would come down to the Emergency Room. In the ER, he was interrogated and the AICD did not fire, but he did have a 7 beat run of V-tach. He denied having any palpitation. Denies having any fever or chills, but he has had cough and some sputum production. PAST MEDICAL HISTORY: Significant for: 1. Severe cardiomyopathy, ischemic. 2. AICD placement in September. 3. COPD. 4. Moderate cigarette smoker. 5. Mixed hyperlipidemia. 6. Coronary artery disease with history of CABG. 7. Generalized anxiety disorder. 8. Bipolar disorder. MEDICATIONS: Medications that he is currently on are aspirin 81 daily, Coreg 12.5 twice a day, Plavix 75 daily, doxepin 75 at bedtime, Keppra 500 b.i.d., lisinopril 2.5 daily, Protonix 40 daily, and nitroglycerin sublingual p.r.n. SOCIAL HISTORY: Smoker of about half to 1 pack of cigarettes a day. Denies using any alcohol. PHYSICAL EXAMINATION: VITAL SIGNS: Graphic trend shows a pressure 141/75, pulse of 56, respirations 20, and temperature 97.6. LUNGS: Diminished breath sounds, a few scattered wheezes. HEART: Regular. ABDOMEN: Obese, soft. EXTREMITIES: Without any edema. ASSESSMENT AND PLAN: 1. Precordial chest pain, ruled out for myocardial infarction. The patient is already on nitrates. 2. Severe cardiomyopathy, status post automated implantable cardioverter-defibrillator placement, automated implantable cardioverter-defibrillator placement interrogation was performed, no abnormality was seen other than a 7 beat run of ventricular tachycardia. 3. Acute asthmatoid wheeze. Antibiotics and prednisone will be started, and the patient is stable and can be discharged. [place], [place] PATIENT HISTORY AND PHYSICAL EXAM NAME: CINDY GRUBER UNIT #: [id number] ROOM: [facility] DOCTOR: CHEYENNE JOVEL MD BIRTHDATE: [birth year] CHEYENNE JOVEL MD CM:HISPHYS:PATIENT HISTORY AND PHYSICAL EXAMINATION 2 6 CHEYENNE JOVEL MD 11/23/17 0835 interface
[~2017-11-22 14:54] MED LIST changes: +AEROECLIPSE II1 EACH MC; +DELTASONE20 M1 PO; +Ipratropium Brom3 ML INH; +VENTOLIN 02.5 MG/3 M INH
[2017-11-22 15:25] LABS: BASO % 0.6 % (0.0-1.0); EOS # 0.2 10*3/uL (0.0-0.4); EOS % 2.8 % (1.0-4.0); HEMATOCRIT 36.9 % (42.0-52.0); HEMOGLOBIN 12.7 g/dl (14.0-18.0); LYMPH # 1.7 10*3/uL (1.3-4.4); LYMPH % 26.2 % (27.0-41.0); MEAN CELL VOLUME 101.1 fl (80.0-94.0); MEAN CORPUSCULAR HGB 34.8 pg (27.0-31.0); MEAN CORPUSCULAR HGB CONC 34.4 g/dl (33.0-37.0); MONO # 0.4 10*3/uL (0.1-1.0); MONO % 6.1 % (3.0-9.0); NEUT # 4.2 10*3/uL (2.3-7.9); PLATELET COUNT AUTOMATED 175 10*3/uL (130-400); RED BLOOD COUNT 3.65 10*6/uL (4.50-5.90); RED CELL DISTRI WIDTH 13.2 % (0-14.5); WHITE BLOOD COUNT 6.5 10*3/uL (4.8-10.8)
[2017-11-22 15:34] LABS: ACT PARTIAL THROMBO TIME 22.9 SECONDS (20.8-31.5)
[2017-11-22 15:41] LABS: ALBUMIN 3.7 gm/dl (3.1-4.5); ALKALINE PHOSPHATASE 68 U/L (45-117); BUN 6 mg/dl (7-24); CHLORIDE 108 mmol/L (98-107); CREATININE 1.29 mg/dL (0.70-1.30); LIPASE 292 U/L (73-393); POTASSIUM 4.6 mmol/L (3.5-5.1); SGOT/AST 27 IU/L (3-35); SGPT/ALT 28 U/L (12-78); SODIUM 142 mmol/L (136-145); TOTAL PROTEIN 6.7 gm/dL (6.4-8.2)
[2017-11-22 15:43] LABS: TROPONIN I < 0.015 ng/ml (<0.045)
[2017-11-22] MEDS ORDERED: PLAVIX75 M1 PO (20:32)
[2017-11-22] MEDS ORDERED: Ipratropium Brom3 ML INH (20:32)
[2017-11-23] VITALS: BP 112/98
[2017-11-23 02:40] VITALS: BP 141/75
[2017-11-23] MEDS ORDERED: PREDNISONE5 MG PO (08:24)
[2017-11-23] MEDS ORDERED: DOXYCYCLINE100 M3 PO (08:24)
[2017-12-27] MEDS ORDERED: LIPITOR40 MG PO (06:27)
[2017-12-27] MEDS ORDERED: IMDUR SA60 MG PO (06:27)
== END 2017-11-23 09:03 | disposition home or self-care (01) | DRG 313 ==
LOC: ED 14:54 → 5E 18:33 → EDHOLD 18:33 → 5E 19:00
PROVIDERS: Nurse Practitioner Family
PROC: 4B02XTZ Measurement of Cardiac Defibrillator, External Approach (ICD-10-PCS; principal; 2017-11-22)
DX: R07.2 Precordial pain (principal); I47.2 Ventricular tachycardia; J44.9 Chronic obstructive pulmonary disease, unspecified; I11.0 Hypertensive heart disease with heart failure; I25.5 Ischemic cardiomyopathy; I25.10 Atherosclerotic heart disease of native coronary artery without angina pectoris; E78.2 Mixed hyperlipidemia; F31.9 Bipolar disorder, unspecified; F41.1 Generalized anxiety disorder; F17.210 Nicotine dependence, cigarettes, uncomplicated; I50.9 Heart failure, unspecified; Z95.1 Presence of aortocoronary bypass graft; Z88.0 Allergy status to penicillin; Z88.8 Allergy status to other drugs, medicaments and biological substances; Z88.1 Allergy status to other antibiotic agents; Z95.810 Presence of automatic (implantable) cardiac defibrillator; I25.2 Old myocardial infarction; Z95.5 Presence of coronary angioplasty implant and graft; Z91.041 Radiographic dye allergy status; Z82.49 Family history of ischemic heart disease and other diseases of the circulatory system; Z83.3 Family history of diabetes mellitus; Z80.9 Family history of malignant neoplasm, unspecified

== ENCOUNTER 2017-11-25 19:17 | Emergency (ER) | payer OTHER ==
[~2017-11-25] VITALS: Ht 172.7 cm; Wt 77.1 kg
--- NOTE | ~2017-11-25 | EKG ---
[place], [place] ELECTROCARDIOGRAM REPORT NAME: CINDY GRUBER UNIT #: [id number] ROOM: DOCTOR: EPIPHANY DRAFT REPORT BIRTHDATE: [birth year] [facility] Test Date: 2017-11-25 Test Time: 19:29:52 Pat Name: CINDY GRUBER Department: ER Room: 17 Gender: M Enrollment Counselor: : 1970 Requested By: MARTIN LANE Order Number: [id number] Reading MD: Carlos Flannery MD Measurements Intervals [place] Rate: 71 P: 38 [place]: 177 QRS: -12 QRSD: 113 T: 39 QT: 378 QTc: 411 Interpretive Statements Sinus rhythm Probable left atrial enlargement Anterior infarct, old Compared to ECG 11/22/2017 21:19:08 No significant changes Electronically Signed On 11-27-2017 4:09:17 PDT by Carlos Flannery MD CM:EKGRPT:ELECTROCARDIOGRAM REPORT [address] EPIPHANY DRAFT REPORT [address] L[address]
[~2017-11-25 19:17] MED LIST changes: +DOXYCYCLINE100 M3 PO; +PREDNISONE5 MG PO
[2017-11-25 19:55] LABS: BASO % 0.2 % (0.0-1.0); EOS % 0.3 % (1.0-4.0); HEMATOCRIT 36.2 % (42.0-52.0); HEMOGLOBIN 12.7 g/dl (14.0-18.0); LYMPH # 2.1 10*3/uL (1.3-4.4); LYMPH % 22.7 % (27.0-41.0); MEAN CELL VOLUME 97.8 fl (80.0-94.0); MEAN CORPUSCULAR HGB 34.3 pg (27.0-31.0); MEAN CORPUSCULAR HGB CONC 35.1 g/dl (33.0-37.0); MEAN PLATELET VOLUME 10.2 fl (9.6-12.3); MONO # 0.5 10*3/uL (0.1-1.0); MONO % 5.2 % (3.0-9.0); NEUT # 6.6 10*3/uL (2.3-7.9); NEUT % 71.4 % (47.0-73.0); PLATELET COUNT AUTOMATED 183 10*3/uL (130-400); RED CELL DISTRI WIDTH 13.2 % (0-14.5); WHITE BLOOD COUNT 9.3 10*3/uL (4.8-10.8)
[2017-11-25 20:05] LABS: ACT PARTIAL THROMBO TIME 21.9 SECONDS (20.8-31.5); INTERNATIONAL NORM RATIO 1.1 (2.0-3.5)
[2017-11-25 20:12] LABS: ALBUMIN 3.7 gm/dl (3.1-4.5); ALKALINE PHOSPHATASE 60 U/L (45-117); BUN 5 mg/dl (7-24); CHLORIDE 104 mmol/L (98-107); CREATININE 1.15 mg/dL (0.70-1.30); POTASSIUM 3.7 mmol/L (3.5-5.1); SGOT/AST 19 IU/L (3-35); SGPT/ALT 26 U/L (12-78); SODIUM 140 mmol/L (136-145); TOTAL PROTEIN 6.9 gm/dL (6.4-8.2)
[2017-11-25 20:17] LABS: TROPONIN I < 0.015 ng/ml (<0.045)
[2017-12-27] MEDS ORDERED: LIPITOR40 MG PO (06:27)
[2017-12-27] MEDS ORDERED: IMDUR SA60 MG PO (06:27)
== END 2017-11-25 21:15 | disposition home or self-care (01) ==
LOC: ED 19:17
PROVIDERS: Nurse Practitioner Family
DX: R07.89 Other chest pain (principal); J44.9 Chronic obstructive pulmonary disease, unspecified; F17.200 Nicotine dependence, unspecified, uncomplicated; Z95.1 Presence of aortocoronary bypass graft; Z91.041 Radiographic dye allergy status; Z88.8 Allergy status to other drugs, medicaments and biological substances; Z88.1 Allergy status to other antibiotic agents; Z88.0 Allergy status to penicillin; Z79.899 Other long term (current) drug therapy; Z79.82 Long term (current) use of aspirin

== ENCOUNTER → 2017-12-27 | Outpatient (CLI) | payer OTHER ==
--- NOTE | ~2017-12-27 | ST ---
[place], [place] EXERCISE STRESS TEST REPORT NAME: CINDY GRUBER UNIT #: [id number] ROOM: DOCTOR: RYAN CHAUHAN MD BIRTHDATE: [birth year] DOS: 12/27/2017 LEXISCAN PORTION OF THE LEXISCAN THALLIUM STRESS TEST Baseline cardiogram, sinus rhythm with nonspecific ST-T changes with poor R-wave progression. Lexiscan given 0.1 mg, duration of 10 seconds. With Lexiscan, no new EKG changes. Blood pressure and heart rate response was normal. Nuclear images will be reported separately. RYAN CHAUHAN MD CM:STRESS:EXERCISE STRESS TEST REPORT 0721 0731 RYAN CHAUHAN MD
== END | disposition home or self-care (01) ==
LOC: CARD 04:44
DX: R07.2 Precordial pain (principal); R53.81 Other malaise

== ENCOUNTER 2018-04-25 11:00 | Emergency (ER) | payer OTHER ==
[~2018-04-25] VITALS: Ht 172.7 cm; Wt 82.6 kg
[2018-04-25] MEDS ORDERED: ROBAXIN500 M1 PO (13:39)
[2018-06-18] MEDS ORDERED: CELEBREX50 MG PO (02:24)
== END 2018-04-25 13:43 | disposition home or self-care (01) ==
LOC: ED 11:00
DX: S39.012A Strain of muscle, fascia and tendon of lower back, initial encounter (principal); F17.200 Nicotine dependence, unspecified, uncomplicated; Z88.8 Allergy status to other drugs, medicaments and biological substances; Z88.0 Allergy status to penicillin; Z88.1 Allergy status to other antibiotic agents; Z79.82 Long term (current) use of aspirin; Z79.899 Other long term (current) drug therapy; Z91.041 Radiographic dye allergy status

== ENCOUNTER 2018-05-27 18:50 | Emergency (ER) | payer OTHER ==
[~2018-05-27] VITALS: Ht 175.2 cm; Wt 88.5 kg
--- NOTE | ~2018-05-27 | EKG ---
[place], [place] ELECTROCARDIOGRAM REPORT NAME: CINDY GRUBER UNIT #: [id number] ROOM: DOCTOR: EPIPHANY DRAFT REPORT BIRTHDATE: [birth year] [facility] Test Date: 2018-05-27 Test Time: 22:27:23 Pat Name: CINDY GRUBER Department: er Room: Gender: M Mosaic Worker: EKG/.KS : 1970 Requested By: LEYLA MARIA Order Number: [id number] Reading MD: Deon Moncada MD Measurements Intervals [place] Rate: 75 P: 39 [place]: 163 QRS: 17 QRSD: 95 T: 19 QT: 387 QTc: 433 Interpretive Statements Sinus rhythm Left atrial enlargement Anterior infarct, old Compared to ECG 12/27/2017 16:44:56 No significant changes Electronically Signed On 05-31-2018 15:07:08 PDT by Deon Moncada MD CM:EKGRPT:ELECTROCARDIOGRAM REPORT 1507 LEYLA ROBERTSON DRAFT REPORT LEYLA MARIA M.D.
--- NOTE | ~2018-05-27 | EKG ---
[place], [place] ELECTROCARDIOGRAM REPORT NAME: CINDY GRUBER UNIT #: [id number] ROOM: DOCTOR: EPIPHANY DRAFT REPORT BIRTHDATE: [birth year] [facility] Test Date: 2018-05-28 Test Time: 01:03:16 Pat Name: CINDY GRUBER Department: ER Room: 14 Gender: M Screen Printing Paster: EKG.CA : 1970 Requested By: LEYLA MARIA Order Number: [id number] Reading MD: Deon Moncada MD Measurements Intervals [place] Rate: 74 P: 36 CT: 170 QRS: -4 QRSD: 116 T: 32 QT: 400 QTc: 444 Interpretive Statements Sinus rhythm Probable left atrial enlargement Nonspecific intraventricular conduction delay Anterior infarct, old Compared to ECG 12/27/2017 16:44:56 Intraventricular conduction delay now present Myocardial infarct finding still present Electronically Signed On 05-31-2018 15:07:32 PDT by Deon Moncada MD CM:EKGRPT:ELECTROCARDIOGRAM REPORT 0103 1507 LEYLA ROBERTSON DRAFT REPORT LEYLA MARIA M.D.
--- NOTE | ~2018-05-27 | EKG ---
[place], [place] ELECTROCARDIOGRAM REPORT NAME: CINDY GRUBER UNIT #: [id number] ROOM: DOCTOR: EPIPHANY DRAFT REPORT BIRTHDATE: [birth year] [facility] Test Date: 2018-05-27 Test Time: 18:55:46 Pat Name: CINDY GRUBER Department: ER Room: Gender: Sanitation Worker Cleaning Equipment: Bart Munoz : 1970 Requested By: LEYLA MARIA Order Number: [id number] Reading MD: Deon Moncada MD Measurements Intervals [place] Rate: 90 P: 39 [place]: 164 QRS: 2 QRSD: 91 T: 37 QT: 360 QTc: 441 Interpretive Statements Sinus rhythm Left atrial enlargement Anterior infarct, old Minimal ST depression, lateral leads Compared to ECG 12/27/2017 16:44:56 ST (T wave) deviation now present Myocardial infarct finding still present Electronically Signed On 05-31-2018 15:06:10 PDT by Deon Moncada MD CM:EKGRPT:ELECTROCARDIOGRAM REPORT 8005 1506 LEYLA ROBERTSON DRAFT REPORT LEYLA MARIA M.D.
[~2018-05-27 18:50] MED LIST changes: +ROBAXIN500 M1 PO
[2018-05-27 19:01] LABS: BASO # 0.1 10*3/uL (0.0-0.1); BASO % 0.6 % (0.0-1.0); EOS # 0.2 10*3/uL (0.0-0.4); EOS % 2.3 % (1.0-4.0); HEMATOCRIT 40.4 % (42.0-52.0); HEMOGLOBIN 13.5 g/dl (14.0-18.0); LYMPH # 2.7 10*3/uL (1.3-4.4); LYMPH % 31.3 % (27.0-41.0); MEAN CELL VOLUME 99.3 fl (80.0-94.0); MEAN CORPUSCULAR HGB 33.2 pg (27.0-31.0); MEAN CORPUSCULAR HGB CONC 33.4 g/dl (33.0-37.0); MONO # 0.6 10*3/uL (0.1-1.0); MONO % 7.1 % (3.0-9.0); NEUT # 5.1 10*3/uL (2.3-7.9); NEUT % 58.4 % (47.0-73.0); PLATELET COUNT AUTOMATED 208 10*3/uL (130-400); RED BLOOD COUNT 4.07 10*6/uL (4.50-5.90); RED CELL DISTRI WIDTH 14.3 % (0-14.5); WHITE BLOOD COUNT 8.8 10*3/uL (4.8-10.8)
[2018-05-27 19:11] LABS: ACT PARTIAL THROMBO TIME 22.2 SECONDS (20.8-31.5)
[2018-05-27 19:25] LABS: ALBUMIN 3.6 gm/dl (3.1-4.5); CREATININE 1.57 mg/dL (0.70-1.30); POTASSIUM 4.4 mmol/L (3.5-5.1); TOTAL PROTEIN 7.3 gm/dL (6.4-8.2)
[2018-05-27 19:27] LABS: TROPONIN I 0.344 ng/ml (<0.045)
[2018-06-18] MEDS ORDERED: CELEBREX50 MG PO (02:24)
== END 2018-05-28 04:43 | disposition short-term general hospital (02) ==
LOC: ED 18:50
PROVIDERS: Emergency Medicine
DX: I21.4 Non-ST elevation (NSTEMI) myocardial infarction (principal); R19.7 Diarrhea, unspecified; R05 Cough; I50.9 Heart failure, unspecified; I25.2 Old myocardial infarction; F17.200 Nicotine dependence, unspecified, uncomplicated; Z88.0 Allergy status to penicillin; Z88.1 Allergy status to other antibiotic agents; Z88.8 Allergy status to other drugs, medicaments and biological substances; Z91.041 Radiographic dye allergy status; Z79.82 Long term (current) use of aspirin; Z79.899 Other long term (current) drug therapy; Z95.1 Presence of aortocoronary bypass graft

== ENCOUNTER 2018-06-04 21:26 | Inpatient (IN) | payer OTHER ==
[~2018-06-04] VITALS: Ht 175.3 cm; Wt 90.3 kg
[2018-06-04] VITALS (8 sets, daily range): BP systolic 113–132; BP diastolic 83–88
--- NOTE | ~2018-06-04 | EKG ---
[place], [place] ELECTROCARDIOGRAM REPORT NAME: CINDY GRUBER UNIT #: [id number] ROOM: 405 DOCTOR: MARCELO DRAFT REPORT BIRTHDATE: [birth year] [facility] Test Date: 2018-06-04 Test Time: 21:33:23 Pat Name: CINDY GRUBER Department: Room: 405 Gender: M Soft Iron Inspector: Carin Lyon : 1970 Requested By: JOY JEFFERY Order Number: [id number] Reading MD: Irving Hernandez MD Measurements Intervals [place] Rate: 76 P: 41 [place]: 188 QRS: 8 QRSD: 98 T: 27 QT: 374 QTc: 421 Interpretive Statements Sinus rhythm Ventricular premature complex Left atrial enlargement Anterior infarct, old Minimal ST elevation, lateral leads Compared to ECG 05/28/2018 01:03:16 Ventricular premature complex(es) now present ST (T wave) deviation now present Intraventricular conduction delay no longer present Myocardial infarct finding still present Electronically Signed On 06-05-2018 10:13:48 PDT by Irving Hernandez MD CM:EKGRPT:ELECTROCARDIOGRAM REPORT 1013 JOY ABRAHAM DRAFT REPORT JOY JEFFERY DO
--- NOTE | ~2018-06-04 | CON ---
[place], [place] REPORT OF CONSULTATION NAME: CINDY GRUBER [facility] #: [id number] UNIT #: [id number] ROOM: 405 DOCTOR: TROY AUGUSTINE MD BIRTHDATE: [birth year] DOS: I am seeing this patient on behalf of Dr. Flannery. HISTORY OF PRESENT ILLNESS: This is a middle-aged man, who had a 3-vessel coronary artery bypass graft surgery probably 8-10 years ago consisting of vein graft to LAD, vein graft to OM1 and vein graft to the right coronary artery. KISER graft was not used because it was not of good size. He has severe ischemic cardiomyopathy. He had a couple of coronary stents deployed a while ago and a couple of months ago had an AICD implanted and that was done at [facility]. He has essential hypertension, hyperlipidemia, COPD, and has had numerous admissions to this hospital. He was in this hospital very recently and had similar chest discomfort and a stress test was negative for ischemia. He came back with left anterior pressure, heavy feeling, sometimes the pain was sharp that lasts about 2 hours. It happened yesterday. It resolved spontaneously and has not recurred. He has been walking around in the hallways and without any symptoms. He has not had any PND, orthopnea, swelling of the lower extremities. He has no palpitation. AICD has not discharged. SOCIAL HISTORY: He does not use alcoholic beverages, but smokes half a pack of cigarettes per day. FAMILY HISTORY: Extremely strong on both side of the family with premature coronary artery disease. HOME MEDICATIONS: Include Imdur 60 b.i.d., lisinopril 2.5 mg daily, Protonix 40 daily, Ranexa 500 b.i.d., Xanax 1 mg t.i.d., aspirin 81 daily, atorvastatin 40 daily, Coreg 12.5 mg b.i.d., Plavix 75 mg daily, and DuoNeb treatments every 4 hours. PHYSICAL EXAMINATION: GENERAL: Reveals a patient who is mildly overweight, very pleasant, alert, very comfortable. There is no fever. There is no thyromegaly or finger clubbing. VITAL SIGNS: Pulse is 64 and regular, blood pressure 124/86. NECK: JVP is normal. AJR is negative. There is no carotid bruit. HEART: There is no cardiomegaly, no murmurs are present. EXTREMITIES: He has good pedal pulses and there is no pitting edema of the lower extremities. RESPIRATORY: Lungs are clear to percussion and auscultation. There is no chest wall tenderness. ABDOMEN: Supple, nontender. Liver is not enlarged. Bowel sounds are normal. DIAGNOSTIC AND LABORATORY DATA: Chest x-ray demonstrated no pulmonary edema. A single chamber AICD is present. An ECG showed normal sinus rhythm with old anterior wall myocardial infarction. Troponin levels have been less than 0.015 x 3. Hemoglobin is 12.3 g/dL. [place], [place] REPORT OF CONSULTATION NAME: CINDY GRUBER UNIT #: [id number] ROOM: 405 DOCTOR: TROY AUGUSTINE MD BIRTHDATE: [birth year] I walked this patient in the hallway at a brisk pace and he had no symptoms, either shortness of breath or chest discomfort. IMPRESSION: 1. The patient has coronary artery disease status post remote coronary artery bypass graft and his symptoms are most likely noncardiac. He had similar symptoms a week or so ago when the stress test was negative for ischemia. 2. He has significant ischemic cardiomyopathy, which is well compensated. 3. Newly implanted AICD is present. 4. Smoking is still ongoing and I discussed this with him. From cardiac standpoint, he can be discharged home today. I thank you on behalf of Dr. Flannery for this consult. TROY AUGUSTINE MD CM:CONSTR:REPORT OF CONSULTATION 1125 06/06/18 0630 interface
--- NOTE | ~2018-06-04 | EKG ---
[place], [place] ELECTROCARDIOGRAM REPORT NAME: CINDY GRUBER UNIT #: [id number] ROOM: 405 DOCTOR: AMRCELO DRAFT REPORT BIRTHDATE: [birth year] [facility] Test Date: 2018-06-04 Test Time: 23:51:26 Pat Name: CINDY GRUBER Department: Room: 405 Gender: M Watch Crystal Cutter: Carin Lyon : 1970 Requested By: JOY JEFFERY Order Number: [id number] Reading MD: Irving Hernandez MD Measurements Intervals [place] Rate: 72 P: 39 [place]: 185 QRS: -7 QRSD: 87 T: 29 QT: 386 QTc: 423 Interpretive Statements Sinus rhythm Probable left atrial enlargement Anterior infarct, old Compared to ECG 05/28/2018 01:03:16 Intraventricular conduction delay no longer present Myocardial infarct finding still present Electronically Signed On 06-05-2018 10:13:59 PDT by Irving Hernandez MD CM:EKGRPT:ELECTROCARDIOGRAM REPORT 2351 1013 JOY ABRAHAM DRAFT REPORT JOY JEFFERY DO
--- NOTE | ~2018-06-04 | WRIGHTHP ---
[place], [place] PATIENT HISTORY AND PHYSICAL EXAM NAME: CINDY GRUBER [facility] #: [id number] UNIT #: [id number] ROOM: 405 DOCTOR: CHEYENNE JOVEL MD BIRTHDATE: [birth year] DOS: 06/04/2018 HISTORY OF PRESENT ILLNESS: The patient is 48-year-old. The patient is very well known to us, comes in with complaints of chest pain. The patient states that he had chest pain and was admitted to [facility] last week and was just released, underwent a stress and echocardiogram, was seen by Dr. Flannery there. The patient states that he is continuing to have chest pain, so he decided to come into the Emergency Room. He denies having any fever, chills. He has a slight cough, but does not have any shortness of breath. He continues to smoke, states he does not drink any more alcohol, but also smokes a lot of pot. PAST MEDICAL HISTORY: Significant for: 1. Coronary artery disease, with history of CABG. 2. Cardiomyopathy with status post biventricular pacemaker placement along with AICD. 3. COPD. 4. Moderate cigarette smoker. 5. Mixed hyperlipidemia. 6. Bipolar disorder. 7. Generalized anxiety disorder. 8. History of drug abuse. MEDICATIONS: He is on currently are breathing treatments, DuoNeb q. 4 hours, Xanax 1 mg 3 times a day, aspirin 81 daily, atorvastatin 40 daily, Coreg 12.5 b.i.d., Plavix 75 daily, isosorbide 60 b.i.d., lisinopril 2.5 daily, Protonix 40 daily, Ranexa 500 b.i.d., nitroglycerin p.r.n. SOCIAL HISTORY: Smoker of about half to one pack of cigarettes. Denies using any alcohol right now. Also smokes pot. PHYSICAL EXAMINATION: GENERAL: He is awake and alert and oriented, does not appear to be in any major distress. VITAL SIGNS: Blood pressure is 129/87, pulse is 77, respirations 20, temperature 98.3. LUNGS: Diminished breath sounds, a few scattered wheezes heard. HEART: Regular. ABDOMEN: Obese, soft, nontender. EXTREMITIES: Without any edema. ASSESSMENT AND PLAN: 1. The patient with complaints of precordial chest pain. He has known history of heart disease. He did have a stress test a week ago, which was negative. He comes back in with chest pain again. I will ask Dr. Moncada for an opinion. All sets of 3 troponins were negative. 2. Chronic opiate abuse and requesting pain medications. A few tablets of tramadol will be given. Unfortunately, because of his chronic kidney disease, he is not a candidate for Toradol. 3. Would avoid stronger opiates in this patient. 4. Chronic obstructive pulmonary disease with mild exacerbation, breathing [place], [place] PATIENT HISTORY AND PHYSICAL EXAM NAME: CINDY GRUBER UNIT #: [id number] ROOM: 405 DOCTOR: CHEYENNE JOVEL MD BIRTHDATE: [birth year] treatments will be ordered. Chest x-ray did not show any evidence of congestive heart failure or pneumonia. CHEYENNE JOVEL MD CM:HISPHYS:PATIENT HISTORY AND PHYSICAL EXAMINATION 2 3 CHEYENNE JOVEL MD 06/05/18912 interface
--- NOTE | ~2018-06-04 | EKG ---
[place], [place] ELECTROCARDIOGRAM REPORT NAME: CINDY GRUBER UNIT #: [id number] ROOM: 405 DOCTOR: MARCELO DRAFT REPORT BIRTHDATE: [birth year] [facility] Test Date: 2018-06-05 Test Time: 03:02:01 Pat Name: CINDY GRUBER Department: Room: 405 Gender: M Transit Mechanic: Monica Reed : 1970 Requested By: JOY JEFFERY Order Number: [id number] Reading MD: Irving Hernandez MD Measurements Intervals [place] Rate: 68 P: 41 PA: 181 QRS: 9 QRSD: 85 T: 17 QT: 402 QTc: 428 Interpretive Statements Sinus rhythm Probable left atrial enlargement Anterior infarct, old Compared to ECG 05/28/2018 01:03:16 Intraventricular conduction delay no longer present Myocardial infarct finding still present Electronically Signed On 06-05-2018 10:14:03 PDT by Irving Hernandez MD CM:EKGRPT:ELECTROCARDIOGRAM REPORT [id number] JOY ABRAHAM DRAFT REPORT JOY JEFFERY DO
[2018-06-04 21:46] LABS: BASO % 0.4 % (0.0-1.0); EOS # 0.1 10*3/uL (0.0-0.4); EOS % 1.7 % (1.0-4.0); HEMATOCRIT 37.3 % (42.0-52.0); HEMOGLOBIN 12.3 g/dl (14.0-18.0); LYMPH % 24.5 % (27.0-41.0); MEAN PLATELET VOLUME 10.5 fl (9.6-12.3); MONO # 0.5 10*3/uL (0.1-1.0); MONO % 6.4 % (3.0-9.0); NEUT # 5.5 10*3/uL (2.3-7.9); NEUT % 66.6 % (47.0-73.0); PLATELET COUNT AUTOMATED 184 10*3/uL (130-400); RED BLOOD COUNT 3.73 10*6/uL (4.50-5.90); RED CELL DISTRI WIDTH 14.3 % (0-14.5); WHITE BLOOD COUNT 8.2 10*3/uL (4.8-10.8)
[2018-06-04 21:57] LABS: ACT PARTIAL THROMBO TIME 18.3 SECONDS (20.8-31.5)
[2018-06-04 22:02] LABS: ALBUMIN 3.4 gm/dl (3.1-4.5); ALKALINE PHOSPHATASE 68 U/L (45-117); BUN 16 mg/dl (7-24); CHLORIDE 108 mmol/L (98-107); CREATININE 1.81 mg/dL (0.70-1.30); POTASSIUM 4.2 mmol/L (3.5-5.1); SGOT/AST 35 IU/L (3-35); SGPT/ALT 51 U/L (12-78); SODIUM 141 mmol/L (136-145); TOTAL PROTEIN 6.4 gm/dL (6.4-8.2)
[2018-06-04 22:03] LABS: TROPONIN I < 0.015 ng/ml (<0.045)
--- NOTE | 2018-06-04 23:21 | NUR ---
PATIENT REQUESTING TO LEAVE PAJAMA PANTS, SHOES AND SOCKS ON UNTIL HE GETS TO HIS ROOM UPSTAIRS. PATIENT DENIES ANY OPEN WOUNDS. PER PATIENT PAIN IS SLIGHTLY BETTER SINCE PAIN MEDICATION. PER PATIENT BREATHING/SHORTNESS OF BREATH BETTER WITH O2. NO DISTRESS NOTED AT THIS TIME. RN WILL CONTINUE TO MONITOR.
--- NOTE | 2018-06-04 23:35 | NUR ---
A 48, admitted to , under the services of CHEYENNE Pace MD with a diagnosis of CHEST PAIN. Chief complaint is CHEST PAIN RADIATING TO LEFT JAW. Patient arrived via stretcher from ER. Monitor applied. Initial assessment completed. Vital signs taken and recorded. CHEYENNE PACE MD notified of admission to the unit. Orders received. See assessment for past medical history, medications and allergies. Patient and/or family oriented to unit. [facility] reviewed. Clothing/patient valuable form completed. YONAS BOLAND
[2018-06-05] VITALS: BP 129/87
--- NOTE | 2018-06-05 00:05 | NUR ---
DR AUGUSTINE, COVERING FOR DR CHAUHAN, NOTIFIED OF CONSULT. STATES WILL SEE PT IN AM.
[2018-06-05] MEDS ORDERED: RANEXA500 M1 PO (01:10)
[2018-06-05 08:00] VITALS: BP 124/86
--- NOTE | 2018-06-05 09:00 | NUR ---
Owner Spa Director in to talk to patient. Patient states lives at home with his mother. There are 15 steps in the home. Physician: Dr. Bonny Washington Pharmacy: [facility] Home health services: none Patient's level of ADLs: INDEPENDENT Patient has working utilities: yes DME: nebulizer Follow-up physician's appointment after d/c: he prefers to make his own follow up appt after discharge Does patient want to access PORTAL?: no Discharge plan discussed with patient. He lives at home with his mother. He is independent in his ADLs and ambulation. Discussed home health care services and he denies any home needs at this time. When medically stable he will be discharged to home. DANNY L[address]
[2018-06-05 12:00] VITALS: BP 134/84
--- NOTE | 2018-06-05 12:52 | NUR ---
Discharge instructions reviewed with patient/family. Patient receptive and verbalizes understanding. Follow-up care arranged. Written instructions given to patient/family. ILENE WAYNE
[2018-06-18] MEDS ORDERED: CELEBREX50 MG PO (02:24)
== END 2018-06-05 12:52 | disposition home or self-care (01) | DRG 192 ==
LOC: ED 21:26 → EDHOLD 22:56 → 4E 22:56
PROVIDERS: Emergency Medicine; ADMIT Internal Medicine
DX: J44.1 Chronic obstructive pulmonary disease with (acute) exacerbation (principal); G43.909 Migraine, unspecified, not intractable, without status migrainosus; I25.10 Atherosclerotic heart disease of native coronary artery without angina pectoris; I25.5 Ischemic cardiomyopathy; F17.210 Nicotine dependence, cigarettes, uncomplicated; E78.2 Mixed hyperlipidemia; F31.9 Bipolar disorder, unspecified; F41.1 Generalized anxiety disorder; R07.89 Other chest pain; F11.10 Opioid abuse, uncomplicated; N18.9 Chronic kidney disease, unspecified; I12.9 Hypertensive chronic kidney disease with stage 1 through stage 4 chronic kidney disease, or unspecified chronic kidney disease; Z95.810 Presence of automatic (implantable) cardiac defibrillator; Z88.0 Allergy status to penicillin; Z88.1 Allergy status to other antibiotic agents; Z88.8 Allergy status to other drugs, medicaments and biological substances; Z91.041 Radiographic dye allergy status; Z87.81 Personal history of (healed) traumatic fracture; Z91.81 History of falling; I25.2 Old myocardial infarction; Z87.01 Personal history of pneumonia (recurrent); Z87.440 Personal history of urinary (tract) infections; Z95.5 Presence of coronary angioplasty implant and graft; Z82.49 Family history of ischemic heart disease and other diseases of the circulatory system; Z83.3 Family history of diabetes mellitus; Z80.9 Family history of malignant neoplasm, unspecified

== ENCOUNTER 2018-07-07 22:08 | Inpatient (IN) | payer OTHER ==
[~2018-07-07] VITALS: Ht 172.7 cm; Wt 91.6 kg
--- NOTE | ~2018-07-07 | EKG ---
[place], [place] ELECTROCARDIOGRAM REPORT NAME: CINDY GRUBER UNIT #: [id number] ROOM: 402 DOCTOR: MARCELO DRAFT REPORT BIRTHDATE: [birth year] [facility] Test Date: 2018-07-08 Test Time: 00:39:46 Pat Name: CINDY GRUBER Department: Room: 402 Gender: M Supervisor Laboratory: Monica Reed : 1970 Requested By: JOY JEFFERY Order Number: [id number] Reading MD: Irving Hernandez MD Measurements Intervals [place] Rate: 83 P: 36 MN: 169 QRS: -9 QRSD: 85 T: 38 QT: 404 QTc: 475 Interpretive Statements Sinus rhythm Left atrial enlargement Anterior infarct, old Baseline wander in lead(s) II,III,aVF Compared to ECG 06/18/2018 06:32:31 No significant changes Electronically Signed On 07-12-2018 6:11:54 PDT by Irving Hernandez MD CM:EKGRPT:ELECTROCARDIOGRAM REPORT [id number] 0611 JOY ABRAHAM DRAFT REPORT JOY JEFFERY DO
--- NOTE | ~2018-07-07 | EKG ---
[place], [place] ELECTROCARDIOGRAM REPORT NAME: CINDY GRUBER UNIT #: [id number] ROOM: 402 DOCTOR: MARCELO DRAFT REPORT BIRTHDATE: [birth year] [facility] Test Date: 2018-07-07 Test Time: 22:10:13 Pat Name: CINDY GRUBER Department: Room: 402 Gender: M Hog Man: : 1970 Requested By: JOY JEFFERY Order Number: [id number] Reading MD: Irving Hernandez MD Measurements Intervals [place] Rate: 90 P: 37 IN: 170 QRS: -3 QRSD: 96 T: 36 QT: 342 QTc: 419 Interpretive Statements Sinus rhythm Probable left atrial enlargement Anterior infarct, old Compared to ECG 06/18/2018 06:32:31 No significant changes Electronically Signed On 07-12-2018 6:11:28 PDT by Irving Hernandez MD CM:EKGRPT:ELECTROCARDIOGRAM REPORT 0611 JOY ABRAHAM DRAFT REPORT JOY JEFFERY DO
--- NOTE | ~2018-07-07 | WRIGHTHP ---
[place], [place] PATIENT HISTORY AND PHYSICAL EXAM NAME: CINDY GRUBER UNIT #: [id number] ROOM: 402 DOCTOR: RAJESH DAVIS MD BIRTHDATE: [birth year] DOS: 07/08/2018 ADDENDUM VITAL SIGNS: Stable. RAJESH DAVIS MD CM:HISPHYS:PATIENT HISTORY AND PHYSICAL EXAMINATION [id number] RAJESH DAVIS MD 08/09/18 1529 interface
--- NOTE | ~2018-07-07 | DS ---
[place], [place] DISCHARGE SUMMARY NAME: CINDY GRUBER UNIT #: [id number] ROOM: 402 DOCTOR: RYAN ZAMORANORAJESH Foster BIRTHDATE: [birth year] DOS: 07/08/2018 HISTORY OF PRESENT ILLNESS: The patient is a 48-year-old gentleman with a past medical history of: 1. Coronary artery disease and coronary artery bypass grafts. 2. History of cardiomyopathy with biventricular pacemaker placement and AICD. 3. Generalized anxiety disorder. 4. Bipolar disorder. 5. COPD and continued nicotine smoke dependence. 6. History of street drug abuse. 7. GERD and esophagitis. The patient presented to the Emergency Department at [facility] with left-sided chest pain going into the left arm, lasting about half an hour. The patient was admitted and his bench technician, Dr. Flannery was consulted. Cardiac enzymes were performed and they have been negative. Dr. Flannery advised the patient to be discharged to home since he had a recent cardiac evaluation by Dr. Flannery and Dr. Flannery does not believe his chest pains are cardiac. The patient's chest pain symptoms have resolved and cardiac enzymes have been negative. Chronic kidney disease stage 3A, stable. History of coronary artery disease and coronary artery bypass grafts, presently stable. The patient treated with isosorbide and Coreg, also takes Ranexa. COPD and nicotine smoke dependence, treated with DuoNeb. Generalized anxiety disorder, treated with Xanax as needed. GERD and esophagitis, treated with Protonix, asymptomatic. LABORATORY DATA: Negative cardiac enzymes. Chest x-ray without acute abnormality. DISCHARGE MANAGEMENT: Xanax 1 mg t.i.d. p.r.n. for anxiety, DuoNeb every 4 hours as needed, Ranexa dose increased to 1000 mg b.i.d., Celebrex 200 mg daily, Coreg 12.5 mg b.i.d., Plavix 75 mg daily, lisinopril 2.5 mg daily, Protonix 40 mg daily, isosorbide 60 mg b.i.d. FOLLOWUP: With PCP and Dr. Flannery, his bench technician, within 1 week. [place], [place] DISCHARGE SUMMARY NAME: CINDY GRUBER UNIT #: [id number] ROOM: 402 DOCTOR: RAJESH DAVIS MD BIRTHDATE: [birth year] RAJESH DAVIS MD CM:ALVINA [id number] RAJESH DAVIS MD 07/08/18 1421 interface
--- NOTE | ~2018-07-07 | EKG ---
[place], [place] ELECTROCARDIOGRAM REPORT NAME: CINDY GRUBER UNIT #: [id number] ROOM: 402 DOCTOR: MARCELO DRAFT REPORT BIRTHDATE: [birth year] [facility] Test Date: 2018-07-08 Test Time: 03:59:16 Pat Name: CINDY GRUBER Department: Room: 402 Gender: M E Commerce Marketing Analyst: Monica Reed : 1970 Requested By: JOY JEFFERY Order Number: [id number] Reading MD: Irving Hernandez MD Measurements Intervals [place] Rate: 74 P: 47 [place]: 174 QRS: -6 QRSD: 88 T: 43 QT: 374 QTc: 415 Interpretive Statements Sinus rhythm Left atrial enlargement Probable anteroseptal infarct, old Compared to ECG 06/18/2018 06:32:31 No significant changes Electronically Signed On 07-12-2018 6:12:07 PDT by Irving Hernandez MD CM:EKGRPT:ELECTROCARDIOGRAM REPORT [id number] 0612 JOY ABRAHAM DRAFT REPORT JOY JEFFERY DO
[~2018-07-07 22:08] MED LIST changes: +CELEBREX50 MG PO; +LIPITOR80 MG PO; +RANEXA500 M1 PO
[2018-07-07 22:09] VITALS: BP 125/81
[2018-07-07 22:29] LABS: BASO % 0.3 % (0.0-1.0); EOS # 0.1 10*3/uL (0.0-0.4); EOS % 1.2 % (1.0-4.0); HEMATOCRIT 36.3 % (42.0-52.0); HEMOGLOBIN 12.1 g/dl (14.0-18.0); LYMPH # 2.3 10*3/uL (1.3-4.4); LYMPH % 30.5 % (27.0-41.0); MEAN CELL VOLUME 100.8 fl (80.0-94.0); MEAN CORPUSCULAR HGB 33.6 pg (27.0-31.0); MEAN CORPUSCULAR HGB CONC 33.3 g/dl (33.0-37.0); MEAN PLATELET VOLUME 10.8 fl (9.6-12.3); MONO # 0.6 10*3/uL (0.1-1.0); MONO % 8.1 % (3.0-9.0); NEUT # 4.5 10*3/uL (2.3-7.9); NEUT % 59.5 % (47.0-73.0); PLATELET COUNT AUTOMATED 167 10*3/uL (130-400); RED CELL DISTRI WIDTH 14.3 % (0-14.5); WHITE BLOOD COUNT 7.6 10*3/uL (4.8-10.8)
[2018-07-07 22:48] VITALS: BP 128/78
[2018-07-07 22:59] LABS: ACT PARTIAL THROMBO TIME 21.6 SECONDS (20.0-32.1)
[2018-07-07 23:09] LABS: ALBUMIN 3.6 gm/dl (3.1-4.5); ALKALINE PHOSPHATASE 61 U/L (45-117); BUN 12 mg/dl (7-24); CHLORIDE 108 mmol/L (98-107); CREATININE 1.85 mg/dL (0.70-1.30); POTASSIUM 4.2 mmol/L (3.5-5.1); SGOT/AST 31 IU/L (3-35); SGPT/ALT 49 U/L (12-78); SODIUM 143 mmol/L (136-145); TOTAL PROTEIN 6.5 gm/dL (6.4-8.2)
[2018-07-07 23:12] LABS: TROPONIN I < 0.015 ng/ml (<0.045)
[2018-07-07 23:21] VITALS: BP 119/64
[2018-07-08 00:32] VITALS: BP 119/68
[2018-07-08 01:12] VITALS: BP 121/64
[2018-07-08 01:50] VITALS: BP 127/77
--- NOTE | 2018-07-08 01:50 | NUR ---
Time: 149 A 48 year old MALE admitted to 4E under services of DR. RYAN ZAMORANO,RAJESH Sanchez Pt. arrived via stretcher from ER. Chief complaint: CHEST PAIN. JOHN STUBBS
--- NOTE | 2018-07-08 02:26 | NUR ---
DR DAVIS NOTIFIED OF PATIENT ADMITTED TO FLOOR. NEW ORDERS RECEIVED. TIEN CONSULT, ARIANNA, NITRO SL AND TROP.
--- NOTE | 2018-07-08 06:23 | NUR ---
NOTIFIED DR CHAUHAN OF NEW CONSULT. PT CAN BE DISCHARGED FROM HIS STANDPOINT. RECENT CADIAC WORKUP COMPLETE. CONTINUE CARDIAC REHAB. INCREASED RANEXA FROM 500MG BID TO 1000MG BID.
--- NOTE | 2018-07-08 06:37 | NUR ---
NOTIFIED DR DAVIS OF DR CHAUHAN ORDERS. NO NEW ORDERS RECEIVED.
[2018-07-08 08:37] VITALS: BP 120/78
[2018-07-08] MEDS ORDERED: MELATONIN5 M7 PO (09:26)
[2018-07-08] MEDS ORDERED: ARIPIPRAZOLE10 MG PO (09:26)
--- NOTE | 2018-07-08 09:35 | NUR ---
NOTIFIED DR REILLY PT WAS C/O PAIN TO RIBS D/T COUGH. PT ALSO STATES HE DOESN'T FEEL WELL. ORDER RECIEVED TO CONT. XANAX AND CELEBREX FROM HOME MEDS. MEDS RECONCILED AGAINST MED CLAIM HISTORY AND WITH PT AT BEDSIDE.
--- NOTE | 2018-07-08 09:52 | NUR ---
XANAX 1 MG GIVEN FOR ANXIETY PER PT REQUEST.
[2018-07-08 11:51] VITALS: BP 122/76
[2018-07-08] MEDS ORDERED: RANEXA500 M1 PO (13:33)
--- NOTE | 2018-07-08 13:54 | NUR ---
Discharge instructions reviewed with patient/family. Patient receptive and verbalizes understanding. Follow-up care arranged. Written instructions given to patient/family. NADER PARISI
== END 2018-07-08 13:54 | disposition home or self-care (01) | DRG 313 ==
LOC: ED 22:08 → EDHOLD 07-08 00:04 → 4E 07-08 00:15
PROVIDERS: Emergency Medicine; ADMIT Internal Medicine
DX: R07.89 Other chest pain (principal); I42.9 Cardiomyopathy, unspecified; I25.10 Atherosclerotic heart disease of native coronary artery without angina pectoris; F41.1 Generalized anxiety disorder; F31.9 Bipolar disorder, unspecified; J44.9 Chronic obstructive pulmonary disease, unspecified; F17.200 Nicotine dependence, unspecified, uncomplicated; K21.0 Gastro-esophageal reflux disease with esophagitis; N18.3 Chronic kidney disease, stage 3 (moderate); G89.29 Other chronic pain; F12.10 Cannabis abuse, uncomplicated; G43.909 Migraine, unspecified, not intractable, without status migrainosus; I25.2 Old myocardial infarction; Z87.81 Personal history of (healed) traumatic fracture; Z95.1 Presence of aortocoronary bypass graft; Z95.810 Presence of automatic (implantable) cardiac defibrillator; Z88.0 Allergy status to penicillin; Z88.1 Allergy status to other antibiotic agents; Z91.81 History of falling; Z95.5 Presence of coronary angioplasty implant and graft; Z72.89 Other problems related to lifestyle; Z82.49 Family history of ischemic heart disease and other diseases of the circulatory system; Z83.3 Family history of diabetes mellitus; Z80.8 Family history of malignant neoplasm of other organs or systems

== ENCOUNTER 2018-09-02 19:22 | Emergency (ER) | payer OTHER ==
[~2018-09-02] VITALS: Ht 175.2 cm; Wt 89.8 kg
[~2018-09-02 19:22] MED LIST changes: +ARIPIPRAZOLE10 MG PO; +MELATONIN5 M7 PO
== END 2018-09-02 20:00 | disposition home or self-care (01) ==
LOC: ED 19:22
DX: T22.111A Burn of first degree of right forearm, initial encounter (principal); T23.171A Burn of first degree of right wrist, initial encounter; Z91.041 Radiographic dye allergy status; Z88.8 Allergy status to other drugs, medicaments and biological substances; Z88.1 Allergy status to other antibiotic agents; Z88.0 Allergy status to penicillin; Z79.899 Other long term (current) drug therapy; Z79.82 Long term (current) use of aspirin; X18.XXXA Contact with other hot metals, initial encounter; Y93.G9 Activity, other involving cooking and grilling; Y92.89 Other specified places as the place of occurrence of the external cause; Y99.8 Other external cause status

== ENCOUNTER 2018-10-19 15:10 | Inpatient (IN) | payer OTHER ==
[~2018-10-19] VITALS: Ht 175.2 cm; Wt 88.3 kg
--- NOTE | ~2018-10-19 | EKG ---
[place], [place] ELECTROCARDIOGRAM REPORT NAME: CINDY GRUBER UNIT #: [id number] ROOM: 404 DOCTOR: MARCELO DRAFT REPORT BIRTHDATE: [birth year] [facility] Test Date: 2018-10-19 Test Time: 21:22:46 Pat Name: CINDY GRUBER Department: Room: 404 Gender: M Catering Convention Services Manager: : 1970 Requested By: ALAN KRAMER Order Number: [id number] Reading MD: Vic Parikh MD Measurements Intervals [place] Rate: 73 P: 42 IA: 181 QRS: -25 QRSD: 91 T: 70 QT: 390 QTc: 430 Interpretive Statements Sinus rhythm Anterior infarct, old Minimal ST depression, lateral leads Electronically Signed On 10-20-2018 13:16:36 PDT by Vic Parikh MD CM:EKGRPT:ELECTROCARDIOGRAM REPORT 21 1316 ALAN ROBERTSON DRAFT REPORT ALAN KRAMER MD
--- NOTE | ~2018-10-19 | EKG ---
[place], [place] ELECTROCARDIOGRAM REPORT NAME: CINDY GRUBER UNIT #: [id number] ROOM: 404 DOCTOR: MARCELO DRAFT REPORT BIRTHDATE: [birth year] [facility] Test Date: 2018-10-19 Test Time: 17:52:09 Pat Name: CINDY GRUBER Department: Room: 404 Gender: M Resident Programs Assistant: Tello Cruz : 1970 Requested By: ALAN KRAMER Order Number: [id number] Reading MD: Vic Parikh MD Measurements Intervals [place] Rate: 62 P: 45 [place]: 183 QRS: 1 QRSD: 88 T: 64 QT: 417 QTc: 424 Interpretive Statements Sinus rhythm Anterior infarct, old Electronically Signed On 10-20-2018 5:12:17 PDT by Vic Parikh MD CM:EKGRPT:ELECTROCARDIOGRAM REPORT [id number] 0512 ALAN ROBERTSON DRAFT REPORT ALAN KRAMER MD
--- NOTE | ~2018-10-19 | PR ---
[place], [place] PROGRESS NOTE NAME: [facility]UBER [facility] [id number] UNIT #: [id number] ROOM: 404 DOCTOR: RAJESH DAVIS MD BIRTHDATE: [birth year] DOS: 10/20/2018 SUBJECTIVE: The patient's chest pain has improved. OBJECTIVE: VITAL SIGNS: Blood pressure 122/80, heart rate of 71 beats per minute, breathing 20 times per minute, temperature 98 degrees Fahrenheit. GENERAL APPEARANCE: The patient is alert and oriented x 3, in no visible distress. HEENT AND NECK: Exam within normal limits. CARDIOVASCULAR SYSTEM: Heart rate is regular in rate and rhythm. S1 and S2 normally audible. LUNGS: Clear to auscultation. ABDOMEN: Soft, nontender. No obvious organomegaly. Bowel sounds are present. EXTREMITIES: Without significant cyanosis or edema. IMPRESSION: 1. The patient with chest pains from uncertain etiology with a recent normal cardiac stress test. Cardiology consult with Dr. Flannery, his motion pictures cartoonist, is still pending. Cardiac enzymes were normal. Once cleared by motion pictures cartoonist, he can be discharged to home or he can be taken for another heart catheterization, Dr. Flannery to decide. 2. Signs of mild congestive heart failure on chest x-ray. Dr. Flannery to decide whether he needs more treatment because he does not have any increased shortness of breath. 3. Generalized anxiety disorder, treated and controlled with Xanax as needed. 4. Recent cardiac stress test showed no reversible ischemia. The patient remains on isosorbide and ranolazine along with Coreg. 5. Chronic arthritis pains treated with Celebrex. RAJESH DAVIS MD CM:PNTRANS [id number] RAJESH DAVIS MD 10/20/182200 interface
--- NOTE | ~2018-10-19 | WRIGHTHP ---
[place], [place] PATIENT HISTORY AND PHYSICAL EXAM NAME: CINDY GRUBER [facility] #: [id number] UNIT #: [id number] ROOM: 404 DOCTOR: RAJESH DAVIS MD BIRTHDATE: [birth year] DOS: 10/19/2018 HISTORY OF PRESENT ILLNESS: 1. The patient is a 48-year-old gentleman with a past medical history of coronary artery disease of the [place] vessels with recent admission to [facility] with negative cardiac stress test. 2. Internal cardiac defibrillator. 3. Biventricular pacemaker. 4. Generalized anxiety disorder. 5. Bipolar disorder. 6. Gastroesophageal reflux disease and esophagitis. The patient presented again to [facility] Emergency Department with complaints of burning and pain in his left chest, going into his neck, which was recurrent. After evaluation in the ER because of his coronary artery disease the patient was recommended for admission and further management. After admission, he is feeling somewhat better. No increasing shortness of breath, no other GI or urinary symptoms. REVIEW OF SYSTEMS: RESPIRATORY: No increasing shortness of breath. GASTROINTESTINAL: No nausea, vomiting, diarrhea, constipation. CARDIOVASCULAR: Recurrent left-sided chest pains. FAMILY HISTORY: Noncontributory. HOME MEDICATIONS: Protonix, lisinopril, isosorbide, Plavix, Celebrex, Coreg, sublingual nitroglycerins, DuoNebs, Xanax. ALLERGIES: Known allergies to IODINE, PENICILLIN, QUINOLONES, INTEGRILIN, CYMBALTA. LABORATORY DATA: BUN and creatinine 8 and 1.4. Chest x-ray showing mild pulmonary vascular congestion. Hemoglobin 11.8. IMPRESSION: 1. The patient with chest pains from uncertain etiology with history of coronary artery disease of the [place] vessels. I reconsulted Dr. Flannery and cardiac enzymes are being performed. The patient admitted to a cardiac monitored bed. 2. Signs of mild congestive heart failure on chest x-ray, but the patient without increased shortness of breath. I will get Cardiology opinion on this. 3. Generalized anxiety disorder to be treated and controlled. The patient is already on high dose of Xanax as needed. 4. Recent cardiac stress test showed no reversible ischemia. The patient controlled with isosorbide, he takes ranolazine and Coreg. Dr. Flannery to reevaluate the patient. 5. Generalized anxiety disorder, treated and controlled with Xanax. 6. Chronic arthritis pains, treated and controlled with Celebrex, which is being continued. [place], [place] PATIENT HISTORY AND PHYSICAL EXAM NAME: CINDY GRUBER UNIT #: [id number] ROOM: [facility] DOCTOR: RAJESH DAVIS MD BIRTHDATE: [birth year] RAJEHS DAVIS MD CM:HISPHYS:PATIENT HISTORY AND PHYSICAL EXAMINATION 13 22 RAJESH DAVIS MD 10/19/181922 interface
--- NOTE | ~2018-10-19 | EKG ---
[place], [place] ELECTROCARDIOGRAM REPORT NAME: CINDY GRUBER UNIT #: [id number] ROOM: 404 DOCTOR: MARCELO DRAFT REPORT BIRTHDATE: [birth year] [facility] Test Date: 2018-10-19 Test Time: 15:09:11 Pat Name: CINDY GRUBER Department: Room: 404 Gender: M Warehouse Selector: : 1970 Requested By: ALAN KRAMER Order Number: [id number] Reading MD: Vic Parikh MD Measurements Intervals [place] Rate: 78 P: 46 MN: 177 QRS: 1 QRSD: 86 T: 25 QT: 379 QTc: 432 Interpretive Statements Sinus rhythm Probable left atrial enlargement Nonspecific ST abnormalities Borderline low voltage, extremity leads Probable anteroseptal infarct, old Compared to ECG 07/15/2018 22:37:08 No significant changes Electronically Signed On 10-22-2018 6:50:54 PDT by Vic Parikh MD CM:EKGRPT:ELECTROCARDIOGRAM REPORT [id number] 0650 ALAN ROBERTSON DRAFT REPORT ALAN KRAMER MD
[2018-10-19 15:11] VITALS: BP 118/78
[2018-10-19 15:27] LABS: BASO % 0.3 % (0.0-1.0); EOS # 0.2 10*3/uL (0.0-0.4); EOS % 3.3 % (1.0-4.0); HEMATOCRIT 34.5 % (42.0-52.0); HEMOGLOBIN 11.8 g/dl (14.0-18.0); LYMPH # 1.5 10*3/uL (1.3-4.4); MEAN CELL VOLUME 100.6 fl (80.0-94.0); MEAN CORPUSCULAR HGB 34.4 pg (27.0-31.0); MEAN CORPUSCULAR HGB CONC 34.2 g/dl (33.0-37.0); MEAN PLATELET VOLUME 10.8 fl (9.6-12.3); MONO # 0.5 10*3/uL (0.1-1.0); MONO % 8.6 % (3.0-9.0); NEUT # 3.6 10*3/uL (2.3-7.9); NEUT % 61.6 % (47.0-73.0); PLATELET COUNT AUTOMATED 143 10*3/uL (130-400); RED BLOOD COUNT 3.43 10*6/uL (4.50-5.90); RED CELL DISTRI WIDTH 12.9 % (0-14.5); WHITE BLOOD COUNT 5.8 10*3/uL (4.8-10.8)
[2018-10-19 15:40] LABS: ACT PARTIAL THROMBO TIME 24.5 SECONDS (20.0-32.1)
[2018-10-19 15:44] LABS: ALBUMIN 3.3 gm/dl (3.1-4.5); ALKALINE PHOSPHATASE 56 U/L (45-117); BUN 8 mg/dl (7-24); CHLORIDE 109 mmol/L (98-107); CREATININE 1.39 mg/dL (0.70-1.30); POTASSIUM 3.7 mmol/L (3.5-5.1); SGOT/AST 24 IU/L (3-35); SGPT/ALT 27 U/L (12-78); SODIUM 142 mmol/L (136-145); TOTAL PROTEIN 6.1 gm/dL (6.4-8.2)
[2018-10-19 15:46] LABS: TROPONIN I < 0.015 ng/ml (<0.045)
[2018-10-19 16:47] VITALS: BP 109/72
--- NOTE | 2018-10-19 16:51 | NUR ---
PATIENT BP IS 109/72. DR KRAMER NOTIFIED AND STATES TO MEDICAL DIRECTOR OCCUPATIONAL HEALTH MORPHINE ANYWAY.
--- NOTE | 2018-10-19 17:40 | NUR ---
A 48, admitted to , under the services of Dr. RYAN ZAMORANO,RAJESH Foster with a diagnosis of CHEST PAIN. Chief complaint is CHEST PAIN. Patient arrived via stretcher from ER. Monitor applied. Initial assessment completed. Vital signs taken and recorded. DR. RYAN ZAMORANO,RAJESH Foster notified of admission to the unit. Orders received. See assessment for past medical history, medications and allergies. Patient and/or family oriented to unit. [facility] visitation policy reviewed. Clothing/patient valuable form completed. ARACELI CORREA
[2018-10-19 17:45] VITALS: BP 111/52
--- NOTE | 2018-10-19 18:01 | NUR ---
Pt unsure of meds new names of most, states he takes 2 more that he knows of but can't remember name. Does not know dosages or frequencies. I called pt pharmacy and they will fax list when they are able.
[2018-10-19] MEDS ORDERED: ABILIFY MAINTE400 MG IM (18:38)
--- NOTE | 2018-10-19 18:40 | NUR ---
Med list received from pharmacy and updated.
--- NOTE | 2018-10-19 18:41 | NUR ---
DR. DAVIS IN AND SAW PT.
--- NOTE | 2018-10-19 18:53 | NUR ---
Notified Dr. Goins that troponins were ordered in ER. States to cancel set he ordered.
[2018-10-19 20:00] VITALS: BP 112/72
--- NOTE | 2018-10-19 22:00 | NUR ---
MEDICATED WITH XANAX PER PRN ORDER FOR C/O ANXIETY.
--- NOTE | 2018-10-19 22:00 | NUR ---
PT C/O STABBING CHEST PAIN AND REQUESTING PAIN MEDICATIONS. DR SERRANO NOTIFIED AND NEW ORDER FOR MORPHINE 2MG IV X1 NOW.
--- NOTE | 2018-10-19 23:58 | NUR ---
PATIENT SLEEPING SOUNDLY. SNORING RESPIRATIONS. NO DISTRESS NOTED. CALL LIGHT WITHIN REACH
[2018-10-20] VITALS: BP 104/70
--- NOTE | 2018-10-20 01:52 | NUR ---
PATIENT CONTINUES TO SLEEP. NO DISTRESS NOTED. CALL LIGHT WITHIN REACH
--- NOTE | 2018-10-20 01:54 | NUR ---
24 HR chart check completed.
--- NOTE | 2018-10-20 06:34 | NUR ---
PATIENT STATES PAIN IS ALOT BETTER TODAY. CALL LIGHT WITHIN REACH, WILL MONITOR
--- NOTE | 2018-10-20 07:43 | NUR ---
PATIENT MEDICATED WITH XANAX PER DRS ORDERS FOR COMPLAINTS OF ANXIETY AND NERVOUSNESS. RN WILL CONTINUE TO MONITOR THIS PATIENT, AND ASSESS FOR RELIEF OF SYMPTOMS
[2018-10-20 08:00] VITALS: BP 102/58
--- NOTE | 2018-10-20 08:30 | NUR ---
Microfilm Equipment Inspector in to talk to patient. Patient states lives at home with his mother. There are 15 steps in the home. Physician: Dr. Bonny Washington [facility]: [facility] Home health services: none Patient's level of ADLs: INDEPENDENT Patient has working utilities: yes DME: nebulizer Follow-up physician's appointment after d/c: he prefers to make his own follow up appt after discharge Does patient want to access PORTAL?: no Discharge plan discussed with patient. He lives at home with his mother. He is independent in his ADLs and ambulation. Discussed home health care services and he denies any home needs at this time. When medically stable he will be discharged to home. DANNY L[address]
[2018-10-20 11:40] VITALS: BP 122/80
--- NOTE | 2018-10-20 11:55 | NUR ---
CINDY GRUBER [id number] Please refer to the physician's history and physical for past medical history, comorbid conditions, and allergies. Diagnosis: CHEST PAIN Giuseppe Score: 22,LOW OR NO RISK WOUND DESCRIPTIONS: Wound Number: 1 Location of the wound: right wrist Type of wound: skin tear Thickness: Partial Size: 1.8cm x 3.1cm x 0.1cm Tunneling: none Undermining: none Sinus Tract: none Presence of Exudate: Serous Amount: Light Color: Red Odor: None Periwound Skin Appearance: Normal Wound edges: approximated Pain (associated with wound): denied at time of assessment How does patient state this happened? patient states he fell down his stairs at home hitting the area on the banister. Surface the patient is resting on: Isoflex SKIN PREVENTION RECOMMENDATION: 1. Pressure redistribution support surface as appropriate 2. Elevate heels 3. Remove boots/TEDS every shift and reapply 4. Head of bed 30 degrees as tolerated 5. Assess nutrition and hydration 6. Manage moisture 7. Avoid the use of containment devices while in bed 8. Use absorptive products on surfaces limit layers of linens on bed 9. Turn and reposition every 1-2 hours in bed and every 1 hour in chair as tolerated 10. Weight shifts every 15 minutes while up in chair 11. Offloading with pillows or device to keep heels elevated off bed 12. Monitor skin at least every shift 13. Inspect under medical devices twice a day WOUND TREATMENT RECOMMENDATIONS: Skin tear guidelines to right wrist: cleanse with nss apply sureprep allow to dry apply hydrogel and cover with optifoam gentle.
--- NOTE | 2018-10-20 14:37 | NUR ---
Dr. Goins notified of wound care recommendations.
--- NOTE | 2018-10-20 15:50 | NUR ---
LEAVING AMA. REFUSING PICS/MEASUREMENTS OF WOUNDS.
--- NOTE | 2018-10-20 16:01 | NUR ---
Patient signed out AMA. Patient encouraged to stay and advised of possible consequences of premature discharge. Physician and supervisor plate forming RENE notified. Patient instructed what to do regarding care post-departure from the hospital; emergency phone numbers provided. Patent was accompanied by SELF. AVINASH GARCIA
== END 2018-10-20 16:01 | disposition left against medical advice (07) | DRG 313 ==
LOC: ED 15:10 → EDHOLD 16:02 → 4E 16:02 → EDHOLD 16:03 → 4E 16:47
PROVIDERS: Emergency Medicine; ADMIT Internal Medicine
DX: R07.9 Chest pain, unspecified (principal); I50.9 Heart failure, unspecified; F41.1 Generalized anxiety disorder; M19.90 Unspecified osteoarthritis, unspecified site; G89.29 Other chronic pain; K21.9 Gastro-esophageal reflux disease without esophagitis; Z53.21 Procedure and treatment not carried out due to patient leaving prior to being seen by health care provider; F17.200 Nicotine dependence, unspecified, uncomplicated; G43.909 Migraine, unspecified, not intractable, without status migrainosus; I25.10 Atherosclerotic heart disease of native coronary artery without angina pectoris; J44.9 Chronic obstructive pulmonary disease, unspecified; Z95.810 Presence of automatic (implantable) cardiac defibrillator; Z88.8 Allergy status to other drugs, medicaments and biological substances; Z88.1 Allergy status to other antibiotic agents; Z91.041 Radiographic dye allergy status; Z91.81 History of falling; Z95.1 Presence of aortocoronary bypass graft; I25.2 Old myocardial infarction; Z87.01 Personal history of pneumonia (recurrent); Z87.442 Personal history of urinary calculi; Z87.440 Personal history of urinary (tract) infections; Z95.5 Presence of coronary angioplasty implant and graft; Z83.3 Family history of diabetes mellitus; Z82.49 Family history of ischemic heart disease and other diseases of the circulatory system; Z80.8 Family history of malignant neoplasm of other organs or systems

== ENCOUNTER 2018-11-12 18:08 | Inpatient (IN) | payer OTHER ==
[~2018-11-12] VITALS: Ht 175.3 cm; Wt 90.8 kg
--- NOTE | ~2018-11-12 | CON ---
[place], [place] REPORT OF CONSULTATION NAME: CINDY GRUBER REDWOOD LLCT #: [id number] UNIT #: [id number] ROOM: 404 DOCTOR: TROY AUGUSTINE MD BIRTHDATE: [birth year] DOS: 11/13/2018 I am seeing this patient on behalf of Dr. Flannery. HISTORY OF PRESENT ILLNESS: This is a 48-year-old -Stateless man whom I have seen before on behalf of Dr. Flannery. He has coronary artery disease and had 3-vessel coronary artery bypass graft surgery some 10 years ago and ____ consisting of vein graft to LAD, to OM1 and circumflex and to the right coronary artery. He has severe ischemic cardiomyopathy and he had an AICD implanted in [place], I believe last year. He has essential hypertension, COPD, depression, hyperlipidemia. He still smokes. He was cutting hedges with a salvador and after 40 minutes, he developed a left submammary pain and he sweated and became weak. He had his usual shortness of breath. He did not have any palpitation. AICD had no discharge. On further questioning, it seems that when he takes a deep breath, the pain gets worse and also got worse with coughing. It did not radiate into the shoulder, arm or the neck, but it went into the left side of the back. He has not had any PND, orthopnea, or swelling of the lower extremities and no loss of consciousness. 18 hours later, he still has the same pain, which has not ____. HOME MEDICATIONS: Abilify 400 daily, ipratropium albuterol aerosol treatments q.4 hours., alprazolam 1 mg t.i.d., aspirin 81 daily, atorvastatin 80 daily, carvedilol 12.5 mg b.i.d., gabapentin 300 mg b.i.d., Imdur 60 mg b.i.d., lisinopril 2.5 mg daily, melatonin 5 mg at night, Protonix 40 daily and Ranexa 1 gram b.i.d. and nitroglycerin sublingually p.r.n., which he did take and then ____. PHYSICAL EXAMINATION: GENERAL: This reveals a patient who is pleasant, alert, rather quiet. Complexion is fine. There is no thyromegaly or finger clubbing. He is not cyanotic. No jaundiced. He is not tachypneic either. VITAL SIGNS: Pulse is 70 regular, blood pressure 104/68. NECK: Normal JVP. AJR is negative. EXTREMITIES: He has no edema in lower extremity. Pedal pulses are palpable. RESPIRATORY: He has quite few rhonchi bilaterally with occasional expiratory wheeze. Breath sounds are mildly diminished bilaterally. ABDOMEN: Supple, nontender. LABORATORY DATA: An ECG showed normal sinus rhythm with an old anteroseptal myocardial infarction. Troponin levels are normal x 3. Hemoglobin is 11.1 g/dL. BUN is 7, creatinine 1.73. IMPRESSION: 1. This patient with coronary artery disease, had symptoms that are somewhat atypical, 18 hours later symptoms are still there and it is worsened by inspiration and palpation this. It sounds very much like chest wall pain, probably from strained muscle from trimming hedge. 2. Cardiomyopathy. This is well compensated. [place], [place] REPORT OF CONSULTATION NAME: CINDY GRUBER UNIT #: [id number] ROOM: [facility] DOCTOR: TROY AUGUSTINE MD BIRTHDATE: [birth year] From cardiac standpoint, the patient can be discharged home with an early followup with Dr. Flannery. TROY AUGUSTINE MD CM:CONSTR:REPORT OF CONSULTATION 1125 11/14/18 0441 interface
--- NOTE | ~2018-11-12 | EKG ---
[place], [place] ELECTROCARDIOGRAM REPORT NAME: CINDY GRUBER UNIT #: [id number] ROOM: 404 DOCTOR: MARCELO DRAFT REPORT BIRTHDATE: [birth year] [facility] Test Date: 2018-11-12 Test Time: 21:00:00 Pat Name: CINDY GRUBER Department: Room: 404 Gender: M Audiometric Technician: : 1970 Requested By: ALAN KRAMER Order Number: [id number] Reading MD: Carlos Flannery MD Measurements Intervals [place] Rate: 68 P: 15 IN: 181 QRS: -18 QRSD: 78 T: 19 QT: 387 QTc: 412 Interpretive Statements Sinus rhythm Probable left atrial enlargement Borderline left axis deviation Low voltage, precordial leads Probable anteroseptal infarct, old Compared to ECG 10/19/2018 21:22:46 Low QRS voltage now present ST (T wave) deviation no longer present Myocardial infarct finding still present Electronically Signed On 11-14-2018 4:13:50 PDT by Carlos Flannery MD CM:EKGRPT:ELECTROCARDIOGRAM REPORT [id number] ALAN ROBERTSON DRAFT REPORT ALAN KRAMER MD
--- NOTE | ~2018-11-12 | EKG ---
[place], [place] ELECTROCARDIOGRAM REPORT NAME: CINDY GRUBER UNIT #: [id number] ROOM: 404 DOCTOR: EPIPHANY DRAFT REPORT BIRTHDATE: [birth year] [facility] Test Date: 2018-11-13 Test Time: 10:09:10 Pat Name: CINDY GRUBER Department: Room: [facility] 1 Gender: M Chief Station Engineer: MAXWELL : 1970 Requested By: RAJESH DAVIS Order Number: [id number] Reading MD: Blu Friedman MD Measurements Intervals [place] Rate: 71 P: 38 OR: 180 QRS: -3 QRSD: 87 T: 28 QT: 374 QTc: 407 Interpretive Statements Sinus rhythm Anterior infarct, old Compared to ECG 10/19/2018 21:22:46 ST (T wave) deviation no longer present Myocardial infarct finding still present Electronically Signed On 11-13-2018 14:43:22 PDT by Blu Friedman MD CM:EKGRPT:ELECTROCARDIOGRAM REPORT [id number] RAJESH DAVIS MD EPIPHANY DRAFT REPORT RAJESH DAVIS MD
--- NOTE | ~2018-11-12 | WRIGHTHP ---
[place], [place] PATIENT HISTORY AND PHYSICAL EXAM NAME: CINDY GRUBER [facility] #: [id number] UNIT #: [id number] ROOM: 404 DOCTOR: RAJESH DAVIS MD BIRTHDATE: [birth year] DOS: 11/12/2018 DISCHARGE DIAGNOSES: 1. Chest pains from uncertain etiology. 2. History of coronary artery disease of the [place] vessels with normal cardiac stress test last year. 3. Internal cardiac defibrillator. 4. Biventricular pacemaker. 5. Generalized anxiety disorder. 6. Bipolar disorder. 7. Gastroesophageal reflux disease and esophagitis. The patient presented to the Emergency Department with complaints of left-sided chest pain, shortness of breath while he was trimming hedges. There was no dizziness or fainting episodes. No other GI or urinary symptoms. The patient was admitted for chest pains with previous history of significant coronary artery disease and cardiac history and Dr. Moncada, the manager maritime saw him and decided that no further cardiac workup was necessary and that his pains were musculoskeletal in nature and that he could be discharged to home. Cardiac enzymes were all normal and after admission his breathing improved with bronchodilators. He is asymptomatic now and would like to go home. Benign essential hypertension, treated and controlled. The patient on Imdur as well as Coreg. Coronary artery disease of the [place] vessels. The patient remains on Ranexa. GERD and esophagitis, asymptomatic with Protonix. HOME MEDICATIONS: The patient takes Ranexa, Coreg, DuoNeb, Protonix, Celebrex, Plavix, isosorbide. ALLERGIES: Known allergies to IODINE, PENICILLIN, QUINOLONES, CYMBALTA, INTEGRILIN. PHYSICAL EXAMINATION: GENERAL: Alert, oriented x 3, in no visible distress. VITAL SIGNS: Blood pressure 129/78, heart rate 72 beats per minute, breathing 18 times per minute, temperature 98.2 degrees Fahrenheit. HEENT AND NECK: Extraocular movements are intact. Sclerae are anicteric. Oral mucosa is moist and clean. No obvious facial weakness. Neck is supple without any lymphadenopathy. No thyromegaly. No JVD. No carotid arterial bruits. LUNGS: Clear to auscultation. No wheezing. No rhonchi. CARDIOVASCULAR SYSTEM: Heart rate is regular in rate and rhythm. S1 and S2 normally audible. No significant murmur or any other abnormal cardiac sounds. ABDOMEN: Soft, nontender. No obvious organomegaly. Bowel sounds are present. No obvious herniation. EXTREMITIES: Without significant cyanosis or edema. Warm to touch. CENTRAL NERVOUS SYSTEM: Alert and oriented x 3. Cranial nerves II-XII are intact. Speech is normal. The patient is able to move all extremities. Normal [place], [place] PATIENT HISTORY AND PHYSICAL EXAM NAME: CINDY GRUBER UNIT #: [id number] ROOM: [facility] DOCTOR: RAJESH DAVIS MD BIRTHDATE: [birth year] muscle strength. Deep tendon reflexes are equal on both sides. Plantars were downgoing. IMPRESSION: 1. The patient with history of coronary artery disease of [place] vessels and chest pains, considered to be musculoskeletal by Dr. Moncada, his manager maritime and cardiac enzymes were all negative. He also had a normal cardiac stress test a year ago. The patient is asymptomatic now and being discharged to home on his home medications. The patient remains on isosorbide and Plavix. 2. Major depression, recurrent, mild, treated and controlled. 3. Gastroesophageal reflux disease and esophagitis, asymptomatic with Protonix. 4. Acute exacerbation of chronic obstructive pulmonary disease, improved with bronchodilators. 5. Benign essential hypertension, treated and controlled. The patient on Coreg and Imdur. 6. Generalized anxiety disorder, treated and controlled with Xanax. RAJESH DAVIS MD CM:HISPHYS:PATIENT HISTORY AND PHYSICAL EXAMINATION [id number] RAJESH DAVIS MD 11/13/18 1721 interface
--- NOTE | ~2018-11-12 | EKG ---
[place], [place] ELECTROCARDIOGRAM REPORT NAME: CINDY GRUBER UNIT #: [id number] ROOM: 404 DOCTOR: MARCELO DRAFT REPORT BIRTHDATE: [birth year] [facility] Test Date: 2018-11-12 Test Time: 18:12:02 Pat Name: CINDY GRUBER Department: Room: [facility] Gender: M Field Marketing Manager: : 1970 Requested By: ALAN KRAMER Order Number: [id number] Reading MD: Carlos Flannery MD Measurements Intervals [place] Rate: 87 P: 45 SC: 166 QRS: 17 QRSD: 104 T: 36 QT: 346 QTc: 417 Interpretive Statements Sinus rhythm Probable left atrial enlargement Probable anteroseptal infarct, old Compared to ECG 10/19/2018 21:22:46 ST (T wave) deviation no longer present Myocardial infarct finding still present Electronically Signed On 11-14-2018 4:13:38 PDT by Carlos Flannery MD CM:EKGRPT:ELECTROCARDIOGRAM REPORT [id number] 0413 ALAN KRAMER MD EPIPHRENEE DRAFT REPORT ALAN KRAMER MD
--- NOTE | ~2018-11-12 | EKG ---
[place], [place] ELECTROCARDIOGRAM REPORT NAME: CINDY GRUBER UNIT #: [id number] ROOM: 404 DOCTOR: MARCELO DRAFT REPORT BIRTHDATE: [birth year] [facility] Test Date: 2018-11-13 Test Time: 00:27:20 Pat Name: CINDY GRUBER Department: Room: [facility] Gender: M Litigation Services Manager: : 1970 Requested By: ALAN KRAMER Order Number: [id number] Reading MD: Carlos Flannery MD Measurements Intervals [place] Rate: 81 P: 51 [place]: 177 QRS: -11 QRSD: 85 T: 51 QT: 376 QTc: 437 Interpretive Statements Sinus rhythm Probable left atrial enlargement Anterior infarct, old Minimal ST depression, lateral leads Baseline wander in lead(s) II,III,aVF,V1,V3,V4,V5 Compared to ECG 10/19/2018 21:22:46 No significant changes Electronically Signed On 11-14-2018 4:14:01 PDT by Carlos Flannery MD CM:EKGRPT:ELECTROCARDIOGRAM REPORT [id number] 0414 ALAN ROBERTSON DRAFT REPORT ALAN KRAMER MD
[~2018-11-12 18:08] MED LIST changes: +ABILIFY MAINTE400 MG IM
[2018-11-12 18:16] VITALS: BP 115/65
[2018-11-12 18:28] LABS: BASO % 0.3 % (0.0-1.0); EOS # 0.1 10*3/uL (0.0-0.4); EOS % 1.7 % (1.0-4.0); HEMATOCRIT 33.1 % (42.0-52.0); HEMOGLOBIN 11.1 g/dl (14.0-18.0); LYMPH # 1.9 10*3/uL (1.3-4.4); LYMPH % 26.9 % (27.0-41.0); MEAN CELL VOLUME 102.5 fl (80.0-94.0); MEAN CORPUSCULAR HGB 34.4 pg (27.0-31.0); MEAN CORPUSCULAR HGB CONC 33.5 g/dl (33.0-37.0); MEAN PLATELET VOLUME 10.9 fl (9.6-12.3); MONO # 0.5 10*3/uL (0.1-1.0); MONO % 7.8 % (3.0-9.0); NEUT # 4.3 10*3/uL (2.3-7.9); NEUT % 62.7 % (47.0-73.0); PLATELET COUNT AUTOMATED 133 10*3/uL (130-400); RED BLOOD COUNT 3.23 10*6/uL (4.50-5.90); RED CELL DISTRI WIDTH 13.1 % (0-14.5); WHITE BLOOD COUNT 6.9 10*3/uL (4.8-10.8)
[2018-11-12 18:39] LABS: ACT PARTIAL THROMBO TIME 23.1 SECONDS (20.0-32.1)
[2018-11-12 18:44] LABS: BUN 7 mg/dl (7-24); CREATININE 1.73 mg/dL (0.70-1.30)
[2018-11-12 18:45] LABS: ALBUMIN 3.2 gm/dl (3.1-4.5); ALKALINE PHOSPHATASE 51 U/L (45-117); CHLORIDE 109 mmol/L (98-107); POTASSIUM 3.7 mmol/L (3.5-5.1); SGOT/AST 20 IU/L (3-35); SGPT/ALT 25 U/L (12-78); SODIUM 144 mmol/L (136-145); TOTAL PROTEIN 5.7 gm/dL (6.4-8.2)
[2018-11-12 18:46] LABS: TROPONIN I < 0.015 ng/ml (<0.045)
[2018-11-12 19:32] VITALS: BP 107/69
[2018-11-12 20:40] VITALS: BP 102/67
--- NOTE | 2018-11-12 20:40 | NUR ---
A 48, admitted to 4E, under the services of Dr. RYAN ZAMORANO,RAJESH Foster with a diagnosis of DYSPNEA, CHEST PAIN. Chief complaint is LEFT SIDED CHEST PAIN, DYSPNEA. Patient arrived via CART from ER. Monitor applied. Initial assessment completed. Vital signs taken and recorded. DR. RYAN ZAMORANO,RAJESH Foster notified of admission to the unit. Orders received. See assessment for past medical history, medications and allergies. Patient and/or family oriented to unit. [facility] visitation policy reviewed. Clothing/patient valuable form completed. LEANDRO LU
[2018-11-12] MEDS ORDERED: ABILIFY MAINTE400 M1 IM (21:29)
[2018-11-12] MEDS ORDERED: NEURONTIN300 MG PO (21:30)
--- NOTE | 2018-11-12 21:40 | NUR ---
CALL PLACED TO DR. DAVIS, GAVE ADMIT TO TELEMETRY ORDER, REVIEWED PATIENTS HOME MEDICATIONS, ADVISED TO HOLD SAS, ATROVASTATIN, LISINOPRIL AND ABILIFY, CONTINUE ALL OTHER HOME MEDICATIONS, ALSO ORDERED GI COCKTAIL. STAT ORDER FOR MAGGE CONSULT, WELL REPEATING TROPONIN SERIES AND REHGULAR DIET.
--- NOTE | 2018-11-12 22:00 | NUR ---
CALL PLACED TO DR. CHAUHAN TO ADVISE OF STAT CONSULT, HE ACKNOWLEDEGED CONSULT AND VERSED HE IS FAMILAR WITH PATIENT.
[2018-11-13] VITALS: BP 92/57
[2018-11-13 08:00] VITALS: BP 104/68
--- NOTE | 2018-11-13 09:58 | NUR ---
PT C/O ANXIETY MEDICATED WITH PRN XANEX. CALL LIGHT WITHIN REACH. WILL MONITOR.
--- NOTE | 2018-11-13 10:32 | NUR ---
AND NOTIFIED OF LEFT SIDED CHEST PAIN, PT GIVEN SL NITRO STAT EKG, AND PRN XANAX FOR ANXIETY. WILL CONTINUE TO MINITOR WILL BE IN SHORTLY TO SEE PT
--- NOTE | 2018-11-13 10:50 | NUR ---
PT STATES PAIN MED ALONG WITH NITRO FOR CHEST PAIN WAS EFFECTIVE. RATING PAIN A 5/10 NOW. CALL LIGHT WITHIN REACH. WILL CONTINUE TO MONITOR.
--- NOTE | 2018-11-13 11:00 | NUR ---
PT STATES ANXIETY MED WAS EFFECTIVE. CALL LIGHT WITHIN REACH. WILL MONITOR.
--- NOTE | 2018-11-13 11:00 | NUR ---
Vp Security in to talk to patient. Patient states lives at home with his mother. There are 15 steps in the home. Physician: Dr. Bonny Washington Pharmacy: [facility] Home health services: none Patient's level of ADLs: INDEPENDENT Patient has working utilities: yes DME: nebulizer Follow-up physician's appointment after d/c: he prefers to make his own follow up appt after discharge Does patient want to access PORTAL?: no Discharge plan discussed with patient. He lives at home with his mother. He is independent in his ADLs and ambulation. Discussed home health care services and he denies any home needs at this time. When medically stable he will be discharged to home. His mother will provide transportation on discharge. DANNY LANE
[2018-11-13 12:00] VITALS: BP 129/78
--- NOTE | 2018-11-13 12:53 | NUR ---
PT C/O CHEST PAIN RATING IT AN 8/10. MEDICATED WITH PRN MORPHINE. CALL LIGHT WITHIN REACH. WILL CHECK EFFECTIVENESS.
--- NOTE | 2018-11-13 13:57 | NUR ---
Discharge instructions reviewed with patient/family. Patient receptive and verbalizes understanding. Follow-up care arranged. Written instructions given to patient/family. ARACELI CORREA
== END 2018-11-13 13:57 | disposition home or self-care (01) | DRG 191 ==
LOC: ED 18:08 → EDHOLD 19:22 → 4E 19:22
PROVIDERS: Emergency Medicine; ADMIT Internal Medicine
DX: J44.1 Chronic obstructive pulmonary disease with (acute) exacerbation (principal); F33.0 Major depressive disorder, recurrent, mild; I25.10 Atherosclerotic heart disease of native coronary artery without angina pectoris; K21.0 Gastro-esophageal reflux disease with esophagitis; F41.1 Generalized anxiety disorder; I25.5 Ischemic cardiomyopathy; F17.200 Nicotine dependence, unspecified, uncomplicated; G40.909 Epilepsy, unspecified, not intractable, without status epilepticus; R07.89 Other chest pain; I11.0 Hypertensive heart disease with heart failure; I50.9 Heart failure, unspecified; E78.5 Hyperlipidemia, unspecified; Z95.810 Presence of automatic (implantable) cardiac defibrillator; Z88.0 Allergy status to penicillin; I25.2 Old myocardial infarction; Z88.8 Allergy status to other drugs, medicaments and biological substances; Z88.1 Allergy status to other antibiotic agents; Z91.041 Radiographic dye allergy status; Z95.5 Presence of coronary angioplasty implant and graft; Z82.49 Family history of ischemic heart disease and other diseases of the circulatory system; Z83.3 Family history of diabetes mellitus; Z80.8 Family history of malignant neoplasm of other organs or systems

== ENCOUNTER 2018-11-16 15:44 | Inpatient (IN) | payer OTHER ==
[~2018-11-16] VITALS: Ht 175.2 cm; Wt 90.3 kg
[~2018-11-16 15:44] MED LIST changes: +ABILIFY MAINTE400 M1 IM
[2018-11-16 15:56] VITALS: BP 137/78
[2018-11-16 16:05] LABS: BASO % 0.6 % (0.0-1.0); EOS # 0.2 10*3/uL (0.0-0.4); EOS % 2.9 % (1.0-4.0); HEMATOCRIT 35.6 % (42.0-52.0); HEMOGLOBIN 11.5 g/dl (14.0-18.0); LYMPH # 1.6 10*3/uL (1.3-4.4); LYMPH % 22.6 % (27.0-41.0); MEAN CELL VOLUME 104.7 fl (80.0-94.0); MEAN CORPUSCULAR HGB 33.8 pg (27.0-31.0); MEAN CORPUSCULAR HGB CONC 32.3 g/dl (33.0-37.0); MEAN PLATELET VOLUME 10.9 fl (9.6-12.3); MONO # 0.5 10*3/uL (0.1-1.0); MONO % 6.5 % (3.0-9.0); NEUT # 4.8 10*3/uL (2.3-7.9); NEUT % 66.7 % (47.0-73.0); PLATELET COUNT AUTOMATED 147 10*3/uL (130-400); RED CELL DISTRI WIDTH 13.4 % (0-14.5); WHITE BLOOD COUNT 7.2 10*3/uL (4.8-10.8)
[2018-11-16 16:18] LABS: ACT PARTIAL THROMBO TIME 22.6 SECONDS (20.0-32.1)
[2018-11-16 16:21] LABS: ALBUMIN 3.3 gm/dl (3.1-4.5); ALKALINE PHOSPHATASE 51 U/L (45-117); BUN 8 mg/dl (7-24); CHLORIDE 110 mmol/L (98-107); CREATININE 1.36 mg/dL (0.70-1.30); SGOT/AST 41 IU/L (3-35); SGPT/ALT 64 U/L (12-78); SODIUM 145 mmol/L (136-145); TOTAL PROTEIN 5.9 gm/dL (6.4-8.2)
[2018-11-16 16:25] LABS: TROPONIN I 0.134 ng/ml (<0.045)
[2018-11-16 16:36] VITALS: BP 128/71
[2018-11-16 17:46] VITALS: BP 135/76
[2018-11-16 18:49] VITALS: BP 139/80
--- NOTE | 2018-11-16 18:51 | NUR ---
PT STILL COMPLAINING OF CHEST PAIN. A SECOND NTG WAS GIVEN AT THIS TIME. PT REMAINS AWAKE AND ALERT. VITAL SIGNS STABLE
--- NOTE | 2018-11-16 22:14 | NUR ---
DR. DAVIS CONTACTED IN REGARDS TO ADMISSION ORDERS, NEW ORDERS RECIEVED.
[2018-11-16 22:15] VITALS: BP 154/85
--- NOTE | 2018-11-16 22:15 | NUR ---
A 48, admitted to 5E, under the services of Dr. RYAN ZAMORANO,RAJESH Foster with a diagnosis of CHEST PAIN. Chief complaint is CHEST PAIN. Patient arrived via bed from ER. Monitor applied. Initial assessment completed. Vital signs taken and recorded. DR. RYAN ZAMORANO,RAJESH Foster notified of admission to the unit. Orders received. See assessment for past medical history, medications and allergies. Patient and/or family oriented to unit. [address] visitation policy reviewed. Clothing/patient valuable form completed. MARY PEDROZA
[2018-11-16 22:31] VITALS: BP 154/85
--- NOTE | 2018-11-16 22:45 | NUR ---
DR. CHAUHAN UNAVALIABLE FOR CONSULT DR. AUGUSTINE COTTON ACREAGE MEASURER AND WILL SEE PATIENT IN AM.
--- NOTE | 2018-11-16 23:34 | NUR ---
PRN XANAX AND ZOFRAN GIVEN AT THIS TIME FOR C/O ANXIETY AND NAUSEA. CALL LIGHT IS WITHIN REACH, WILL MONITOR EFFECT OF MEDICATIONS.
--- NOTE | 2018-11-16 23:53 | NUR ---
ATTEMPTED TO CONTACT DR. DAVIS MULTIPLE TIMES WITH NO SUCCESS WILL TRY AGAIN LATER.
[2018-11-17] VITALS: BP 121/88; BP 148/62
--- NOTE | 2018-11-17 | NUR ---
DR. DAVIS RETURNED CALL IN REGARDS TO PAIN CONTROL. SPOKE WITH DR. DAVIS IN REGARDS TO PAIN CONTROL AND CTA OF CHEST RESULTS. SEE NEW ORDERS.
[2018-11-17 01:05] LABS: TROPONIN I 0.082 ng/ml (<0.045)
--- NOTE | 2018-11-17 01:22 | NUR ---
PRN XANAX EFFECTIVE PER PATIENT. PRN MORPHINE GIVEN FOR PATIENT C/O LEFT SIDED CHEST PAIN RATING A 5/10. CALL LIGHT IS WITHIN REACH, WILL MONITOR EFFECT OF PAIN MEDICATION.
--- NOTE | 2018-11-17 02:55 | NUR ---
PRN MORPHINE SEEMS EFFECTIVE, PATIENT IS SLEEPING WITH EASY AND REGULAR RESPERS ON 2L O2 VIA NC. CALL LIGHT IS WITHIN REACH.
--- NOTE | 2018-11-17 08:36 | NUR ---
24 HR chart check completed.
--- NOTE | 2018-11-17 09:00 | NUR ---
Range Master in to talk to patient. Patient states lives at home with his mother. There are 15 steps in the home. Physician: Dr. Bonny Washington Pharmacy: [facility] Home health services: none Patient's level of ADLs: INDEPENDENT Patient has working utilities: yes DME: nebulizer Follow-up physician's appointment after d/c: he prefers to make his own follow up appt after discharge Does patient want to access PORTAL?: no Discharge plan discussed with patient. He lives at home with his mother. He is independent in his ADLs and ambulation. Discussed home health care services and he denies any home needs at this time. When medically stable he will be discharged to home. His mother will provide transportation on discharge. [address]
--- NOTE | 2018-11-17 11:02 | NUR ---
PATIENT MEDICATED WITH XANAX AND MORPHINE IV AT THIS TIME FOR FEELING ANXIOUS AND PAIN IN HIS LUNGS AND CHEST BUT NOT CHEST PAIN. PAIN WAS 7/10.
--- NOTE | 2018-11-17 11:35 | NUR ---
PATIENT STATED THAT PAIN WAS NOW A 3-4/10, RESTING COMFORTABLY, ALERT AND ORIENTED, RESPIRATIONS EASY AND NON-LABORED.
[2018-11-17 12:00] VITALS: BP 122/84
[2018-11-17 16:00] VITALS: BP 116/68
[2018-11-17 20:00] VITALS: BP 116/65
[2018-11-18] VITALS: BP 111/63
[2018-11-18 06:52] LABS: CHLORIDE 102 mmol/L (98-107); CREATININE 1.42 mg/dL (0.70-1.30); SODIUM 141 mmol/L (136-145)
[2018-11-18 06:56] LABS: BUN 18 mg/dl (7-24)
--- NOTE | 2018-11-18 08:42 | NUR ---
24 HR chart check completed.
[2018-11-18] MEDS ORDERED: CEFUROXIME AXE250 MG PO (09:00)
--- NOTE | 2018-11-18 10:27 | NUR ---
DISCHARGE INFORMATION GIVEN TO PATIENT AT THIS TIME, ALL INFORMATION EXPLAINED TO PATIENT AND ALL QUESTIONS ANSWERED TO PATIENT SATISFACTION AT THIS TIME. EXPLAINED TO PATIENT TO STOP TAKING CELEBREX DUE TO INCREASE IN KIDNEY FUNCTION. EDUCATION PROVIDED TO PATIENT ON ACS, CHF, AND KIDNEY HEALTH. PATIENT REFUSED WHEELCHAIR AT THIS TIME, AMBULATED TO LOBBY TO WAIT ON HIS MOTHER. IV SALINE LOCK REMOVED WITHOUT INCIDENT, CATHETER INTACT, NO BLEEDING NOTED AT THIS TIME, PRESSURE DRESSING APPLIED. MANAGER COLLEGE REMOVED. ALL PERSONAL BELONGINGS WITH PATIENT.
== END 2018-11-18 10:27 | disposition home or self-care (01) | DRG 198 ==
LOC: ED 15:44 → EDHOLD 19:48 → 5E 19:48
PROVIDERS: Emergency Medicine; ADMIT Internal Medicine
DX: R07.89 Other chest pain (principal); I25.10 Atherosclerotic heart disease of native coronary artery without angina pectoris; J20.9 Acute bronchitis, unspecified; J44.0 Chronic obstructive pulmonary disease with (acute) lower respiratory infection; F31.9 Bipolar disorder, unspecified; I50.9 Heart failure, unspecified; I25.5 Ischemic cardiomyopathy; G43.909 Migraine, unspecified, not intractable, without status migrainosus; E78.5 Hyperlipidemia, unspecified; F41.1 Generalized anxiety disorder; K21.9 Gastro-esophageal reflux disease without esophagitis; F17.210 Nicotine dependence, cigarettes, uncomplicated; N18.9 Chronic kidney disease, unspecified; I25.2 Old myocardial infarction; Z95.0 Presence of cardiac pacemaker; Z88.1 Allergy status to other antibiotic agents; Z88.0 Allergy status to penicillin; Z91.041 Radiographic dye allergy status; Z91.81 History of falling; Z87.01 Personal history of pneumonia (recurrent); Z87.440 Personal history of urinary (tract) infections; Z95.1 Presence of aortocoronary bypass graft; Z95.5 Presence of coronary angioplasty implant and graft; Z82.49 Family history of ischemic heart disease and other diseases of the circulatory system; Z83.3 Family history of diabetes mellitus; Z80.8 Family history of malignant neoplasm of other organs or systems

== ENCOUNTER 2018-11-27 12:57 | Inpatient (IN) | payer OTHER ==
[2018-11-27] VITALS (7 sets, daily range): BP systolic 130–142; BP diastolic 62–96
[~2018-11-27] VITALS: Ht 175.3 cm; Wt 87.8 kg
[~2018-11-27 12:57] MED LIST changes: +CEFUROXIME AXE250 MG PO
[2018-11-27 13:40] LABS: BASO % 0.3 % (0.0-1.0); EOS # 0.1 10*3/uL (0.0-0.4); EOS % 0.6 % (1.0-4.0); HEMATOCRIT 39.7 % (42.0-52.0); HEMOGLOBIN 13.6 g/dl (14.0-18.0); LYMPH # 2.9 10*3/uL (1.3-4.4); MEAN CELL VOLUME 98.5 fl (80.0-94.0); MEAN CORPUSCULAR HGB 33.7 pg (27.0-31.0); MEAN CORPUSCULAR HGB CONC 34.3 g/dl (33.0-37.0); MEAN PLATELET VOLUME 10.4 fl (9.6-12.3); MONO # 0.8 10*3/uL (0.1-1.0); MONO % 6.7 % (3.0-9.0); NEUT % 67.1 % (47.0-73.0); NUCLEATED RED BLOOD CELL 0.2 % (0.0-0.0); PLATELET COUNT AUTOMATED 248 10*3/uL (130-400); RED BLOOD COUNT 4.03 10*6/uL (4.50-5.90); RED CELL DISTRI WIDTH 12.9 % (0-14.5)
[2018-11-27 13:46] LABS: ALBUMIN 3.8 gm/dl (3.1-4.5); ALKALINE PHOSPHATASE 62 U/L (45-117); BUN 20 mg/dl (7-24); CHLORIDE 106 mmol/L (98-107); CREATININE 1.56 mg/dL (0.70-1.30); POTASSIUM 3.6 mmol/L (3.5-5.1); SGOT/AST 17 IU/L (3-35); SGPT/ALT 28 U/L (12-78); SODIUM 139 mmol/L (136-145); TOTAL PROTEIN 6.9 gm/dL (6.4-8.2)
[2018-11-27 13:47] LABS: TROPONIN I < 0.015 ng/ml (<0.045)
--- NOTE | 2018-11-27 15:45 | NUR ---
A 48, admitted to , under the services of CHEYENNE Pace MD with a diagnosis of PNEUMONITIS. Chief complaint is SHORTNESS OF BREATHE. Patient arrived via bed from ER. Monitor applied. Initial assessment completed. Vital signs taken and recorded. CHEYENNE PACE MD notified of admission to the unit. Orders received. See assessment for past medical history, medications and allergies. Patient and/or family oriented to unit. [address] visitation policy reviewed. Clothing/patient valuable form completed. MARY PEDROZA
[2018-11-27] MEDS ORDERED: CIPRO500 MG PO (16:16)
[2018-11-27] MEDS ORDERED: PREDNISONE5 M1 PO (16:16)
--- NOTE | 2018-11-27 18:00 | NUR ---
RESTNIG IN BED. NO C/O AT THIS TIME. CALL LIGHT IN REACH.
--- NOTE | 2018-11-27 20:13 | NUR ---
PT. COMPLAINING OF CHEST PAIN WHEN COUGHING, DR. JOVEL NOTIFIED, ORDERS RECEIVED.
--- NOTE | 2018-11-27 21:02 | NUR ---
PT. GIVEN TYLENOL AND XANAX ORDERED AT 2032 FOR ANXIETY AND CHEST PAIN WITH COUGH.
--- NOTE | 2018-11-27 22:18 | NUR ---
PT. STATED TYLENOL WAS MINIMALLY EFFECTIVE. LESS ANXIOUS, XANAX EFFECTIVE. RENE URIBE RN
[2018-11-28] VITALS: BP 88/55
[2018-11-28 08:00] VITALS: BP 150/84
--- NOTE | 2018-11-28 08:00 | NUR ---
PT REQUESTING NERVE MEDICATION. MEDICATED WTH XANAX PO PER PRN ORDER, SEE EMAR. CALL LIGHT IN REACH. SEE SHIFT ASSESSMENT.
--- NOTE | 2018-11-28 09:00 | NUR ---
MEDICATION EFFECTIVE. NO C/O A TTHIS TIME. CALL LIGHT IN REACH.
--- NOTE | 2018-11-28 10:00 | NUR ---
Drug Abuse Social Worker in to talk to patient. Patient states lives at home with his mother. There are 15 steps in the home. Physician: Dr. Bonny Washington Pharmacy: [facility] Home health services: none Patient's level of ADLs: INDEPENDENT Patient has working utilities: yes DME: nebulizer Follow-up physician's appointment after d/c: he prefers to make his own follow up appt after discharge Does patient want to access PORTAL?: no Discharge plan discussed with patient. He lives at home with his mother. He is independent in his ADLs and ambulation. Discussed home health care services and he denies any home needs at this time. When medically stable he will be discharged to home. His mother will provide transportation on discharge. [address]
--- NOTE | 2018-11-28 10:32 | NUR ---
PT C/O PAIN ACROSS CHEST FROM COUGHING PER PT. RATES PAIN 7 ON PAIN SCALE 0-10. MEDICATED WITH TYLENOL PO PER PRN ORDER, SEE EMAR. CALL LIGHT IN REACH.
--- NOTE | 2018-11-28 11:25 | NUR ---
STATES PAIN MEDICATION HELPED. CALL LIGHT IN REACH.
[2018-11-28 12:00] VITALS: BP 112/72
--- NOTE | 2018-11-28 12:40 | NUR ---
PT C/O CHEST PAIN MORE WITH COUGHING. BP 112/73, HR89, PULSEOX 94%2L, PT HAS HARSH MOIST NONPROD COUGH AT THIS TIME. CALLED DR. MED WHITEHEAD. SPOKE WITH PT HE STATES IT COMES AND GOES WITH COUGHING. VSS. MEDICATING PER EMAR. CALL LIGHT IN REACH.
--- NOTE | 2018-11-28 14:00 | NUR ---
PT ESCORTED VIA WHEELCHAIR FOR CT. NO C/O AT THIS TIME. NO SOB NOTED.
[2018-11-28 16:00] VITALS: BP 129/66
--- NOTE | 2018-11-28 16:12 | NUR ---
PT RESTING IN BED. C/O CHEST PAIN FROM COUGHING. MEDICATED WITH TYLENOL PO PER PRN ORDER, SEE EMAR. ALSO REQUESTING XANAX FOR ANXIETY. CALL LIGHT IN REACH. SEE SHIFT ASSESSMENT.
--- NOTE | 2018-11-28 17:00 | NUR ---
RESTING IN BED WITH EYES CLOSED. RESP-EASY AND REGULAR. OXYGEN IN USE. MEDICATION SEEMS TO BE EFFECTIVE. CALL LIGHT IN REACH.
--- NOTE | 2018-11-28 17:45 | NUR ---
PT C/O SHORTNESS OF BREATH, MOIST NONPROD COUGH NOTED. PULSE OX 96% 2LITERS. HR-80'S. BP 120/68. RESPIRATORY CALLED AND ON FLOOR FOR BREATHING TX.
--- NOTE | 2018-11-28 18:00 | NUR ---
PT RESTING IN BED. RESP-EASY AND REGULAR. VISITORS AT HIS SIDE. EATING HOT DOG SHOPPE. OXYGEN IN USE. CALL LIGHT IN REACH.
[2018-11-28 20:00] VITALS: BP 107/64
[2018-11-29] VITALS: BP 100/47
--- NOTE | 2018-11-29 03:51 | NUR ---
PT.SLEEPING, TYLENOL AND XANAX EFFECTIVE. RENE URIBE RN
[2018-11-29 08:00] VITALS: BP 116/78
--- NOTE | 2018-11-29 08:30 | NUR ---
Eap Consultant in to see patient. No new needs or request at this time. He denies any home needs. When medically stable he will be discharged to home.
--- NOTE | 2018-11-29 09:41 | NUR ---
MEDICATED WITH PRN XANAX PER ORDER NAD REQUEST.
[2018-11-29 12:00] VITALS: BP 128/80
--- NOTE | 2018-11-29 12:00 | NUR ---
XANAX EARLIER EFFECTIVE.
[2018-11-29 16:00] VITALS: BP 101/74
[2018-11-29 19:40] VITALS: BP 112/90
--- NOTE | 2018-11-29 19:48 | NUR ---
PATIENT COMPLAINED OF PAIN AT A 7/10 AND FEELING ANXIOUS. TYLENOL AND XANAX GIVEN PER PATIENT REQUEST. WILL ASSESS FOR EFFECTIVENESS.
--- NOTE | 2018-11-29 20:40 | NUR ---
TYLENOL AND XANAX EFFECTIVE PER PATIENT.
[2018-11-29 21:30] VITALS: BP 110/80
--- NOTE | 2018-11-29 22:13 | NUR ---
24 HR chart check completed.
[2018-11-30] VITALS: BP 100/66
[2018-11-30 08:00] VITALS: BP 126/80
[2018-11-30] MEDS ORDERED: PULMICORT RESP0.5 MG NEB (08:20)
--- NOTE | 2018-11-30 08:30 | NUR ---
Meat Passer in to see patient. He is ambulating in the room. He states he is being discharged. Asked if there was anything he needed at home and he states no.
--- NOTE | 2018-11-30 08:30 | NUR ---
TO BE DISCHARGED TO HOME. PATIENT REFUSED ECHO.
--- NOTE | 2018-11-30 09:24 | NUR ---
PATIENT DISCHARGED TO HOME
== END 2018-11-30 09:24 | disposition home or self-care (01) | DRG 137 ==
LOC: ED 12:57 → 4E 14:35 → EDHOLD 14:35 → 4E 15:13
PROVIDERS: Nurse Practitioner Family; ADMIT Internal Medicine
DX: J15.6 Pneumonia due to other Gram-negative bacteria (principal); J44.1 Chronic obstructive pulmonary disease with (acute) exacerbation; J20.9 Acute bronchitis, unspecified; J80 Acute respiratory distress syndrome; J44.0 Chronic obstructive pulmonary disease with (acute) lower respiratory infection; I25.10 Atherosclerotic heart disease of native coronary artery without angina pectoris; N18.9 Chronic kidney disease, unspecified; K21.9 Gastro-esophageal reflux disease without esophagitis; I12.9 Hypertensive chronic kidney disease with stage 1 through stage 4 chronic kidney disease, or unspecified chronic kidney disease; F19.10 Other psychoactive substance abuse, uncomplicated; I42.9 Cardiomyopathy, unspecified; F17.210 Nicotine dependence, cigarettes, uncomplicated; F31.9 Bipolar disorder, unspecified; E11.22 Type 2 diabetes mellitus with diabetic chronic kidney disease; F41.1 Generalized anxiety disorder; Z95.810 Presence of automatic (implantable) cardiac defibrillator; Z71.6 Tobacco abuse counseling; Z88.0 Allergy status to penicillin; Z88.8 Allergy status to other drugs, medicaments and biological substances; Z88.1 Allergy status to other antibiotic agents; Z91.041 Radiographic dye allergy status; Z95.1 Presence of aortocoronary bypass graft; Z95.5 Presence of coronary angioplasty implant and graft; Z82.49 Family history of ischemic heart disease and other diseases of the circulatory system; Z83.3 Family history of diabetes mellitus; Z80.8 Family history of malignant neoplasm of other organs or systems

== ENCOUNTER → 2018-12-11 | Outpatient (CLI) | payer OTHER ==
[~2018-12-11] MED LIST changes: +PREDNISONE5 M1 PO; +PULMICORT RESP0.5 MG NEB
== END | disposition home or self-care (01) ==
LOC: US 12:30
DX: N20.0 Calculus of kidney (principal)

== ENCOUNTER 2019-02-03 12:58 | Inpatient (IN) | payer OTHER ==
[2019-02-03] VITALS (9 sets, daily range): BP systolic 89–134; BP diastolic 65–82
[~2019-02-03] VITALS: Ht 175.2 cm; Wt 114.3 kg
[2019-02-03 13:19] LABS: BASO % 0.2 % (0.0-1.0); EOS # 0.1 10*3/uL (0.0-0.4); EOS % 0.9 % (1.0-4.0); HEMATOCRIT 41.2 % (42.0-52.0); HEMOGLOBIN 13.8 g/dl (14.0-18.0); LYMPH % 22.1 % (27.0-41.0); MEAN CELL VOLUME 97.9 fl (80.0-94.0); MEAN CORPUSCULAR HGB 32.8 pg (27.0-31.0); MEAN CORPUSCULAR HGB CONC 33.5 g/dl (33.0-37.0); MEAN PLATELET VOLUME 10.8 fl (9.6-12.3); MONO # 0.5 10*3/uL (0.1-1.0); MONO % 5.1 % (3.0-9.0); NEUT # 6.5 10*3/uL (2.3-7.9); NEUT % 71.5 % (47.0-73.0); PLATELET COUNT AUTOMATED 201 10*3/uL (130-400); RED BLOOD COUNT 4.21 10*6/uL (4.50-5.90); RED CELL DISTRI WIDTH 12.7 % (0-14.5)
[2019-02-03 13:36] LABS: ALBUMIN 3.3 gm/dl (3.1-4.5); ALKALINE PHOSPHATASE 64 U/L (45-117); BUN 7 mg/dl (7-24); CHLORIDE 110 mmol/L (98-107); CREATININE 1.36 mg/dL (0.70-1.30); SGOT/AST 23 IU/L (3-35); SGPT/ALT 29 U/L (12-78); SODIUM 142 mmol/L (136-145); TOTAL PROTEIN 6.4 gm/dL (6.4-8.2)
[2019-02-03 13:38] LABS: ACT PARTIAL THROMBO TIME 25.8 SECONDS (20.0-32.1)
[2019-02-03 13:40] LABS: TROPONIN I < 0.015 ng/ml (<0.045)
--- NOTE | 2019-02-03 13:50 | NUR ---
PT STATES HIS CHEST PAIN HAS NOT GOTTEN BETTER WITH THE NITRO. ANOTHER NITRO GIVEN. DR MARIA NOTIFIED
--- NOTE | 2019-02-03 14:00 | NUR ---
PT STATES HIS CHEST PAIN IS WORSE. BP DROPPED TO 89/65. DR MARIA NOTIFIED. ADVISED WE GIVE IV FLUIDS TO TRY TO RAISE BP THEN PAIN INTERVENTION CAN BE INITIATED.
--- NOTE | 2019-02-03 14:58 | NUR ---
PT STATES MORPHINE HELPED HIS CHEST PAIN A LITTLE BIT.
--- NOTE | 2019-02-03 16:30 | NUR ---
A 48, admitted to , under the services of CHEYENNE Pace MD with a diagnosis of CHEST PAIN. Chief complaint is CHEST PAIN,SHORTNESS OF BREATH, PRODUCTIVE COUGH . Patient arrived via bed from ER. Monitor applied. Initial assessment completed. Vital signs taken and recorded. CHEYENNE PACE MD notified of admission to the unit. Orders received. See assessment for past medical history, medications and allergies. Patient and/or family oriented to unit. [facility] visitation policy reviewed. Clothing/patient valuable form completed. NADER PARISI
--- NOTE | 2019-02-03 19:45 | NUR ---
AAOX3 SITTING RESTING IN BED WITH HOB ELEVATED RECEIVING AEROSOL TX. WILL COME BACK TO ASSESS AFTER RESPIRATORY TX & EKG IS DONE.
--- NOTE | 2019-02-03 19:55 | NUR ---
NICODERM PATCH APPLIED TO RIGHT ARM. 02 INTACT AT 2 LITERS VIA N/C. LUNGS WITH RHONCHI & AN EXPIRATORY WHEEZES. MOIST COUGH FOR YELLOW PER PT. PT. VOICES NO C/O AT THIS TIME. CALL LIGHT WITHIN REACH.
--- NOTE | 2019-02-03 22:00 | NUR ---
TOOK PO MEDICATIONS WITHOUT DIFFICULTY. VOICES NO C/O AT THIS TIME. CALL LIGHT WITHIN REACH.
[2019-02-04] VITALS: BP 107/70
--- NOTE | 2019-02-04 06:00 | NUR ---
AROUSES EASILY TO TAKE PO MEDICATIONS. VOICES NO C/O AT THIS TIME. 02 INTACT; CALL LIGHT WITHIN REACH.
[2019-02-04 08:00] VITALS: BP 110/70; BP 116/72
--- NOTE | 2019-02-04 08:26 | NUR ---
DR JOVEL ROUNDED AND SEEN PT.NO NEW ORDERS.
[2019-02-04 12:00] VITALS: BP 113/72
[2019-02-04 16:00] VITALS: BP 104/68
[2019-02-04 20:00] VITALS: BP 110/63
--- NOTE | 2019-02-04 23:33 | NUR ---
PATIENT MEDICATED WITH NITRO SL FOR COMPLAINTS OF CHEST PAIN.
[2019-02-05] VITALS: BP 99/57
--- NOTE | 2019-02-05 00:15 | NUR ---
PATIENT COMPLAINING OF CHEST PAIN AND O2 SAT RANGING FROM HIGH 80'S TO LOW 90'S ON 4L N/C. EKG OBTAINED AND OXYGEN TURNED UP TO 6L N/C.
--- NOTE | 2019-02-05 00:27 | NUR ---
DR. JOVEL NOTIFIED OF EKG RESULTS AND PATIENT'S COMPLAINTS OF CHEST PAIN AND LOW O2 SAT. NEW ORDERS TO OBTAIN CT OF CHEST, TROPONIN SET, TYLENOL 650MG Q 6 HOUR PRN, CONSULT DR. SERRANO AND CONSULT DR. DEJESUS.
--- NOTE | 2019-02-05 00:30 | NUR ---
PATIENT MEDICATED WITH TYLENOL 650 MG AND TAKEN DOWN TO CT FOR CT OF CHEST WITHOUT CONTRAST.
--- NOTE | 2019-02-05 00:51 | NUR ---
RETURNED TO FLOOR AT THIS TIME.
--- NOTE | 2019-02-05 01:35 | NUR ---
HEP LOCK IN RIGHT AC OCCLUDED. NEW 22G PERIPHERAL INSERTED INTO RIGHT FOREARM ON FIRST ATTEMPT AFTER CLEANSING WITH ALCOHOL. GOOD BLOOD RETURN. PATIENT TOLERATED WELL.
--- NOTE | 2019-02-05 03:34 | NUR ---
24 HR chart check completed.
--- NOTE | 2019-02-05 06:31 | NUR ---
DR. DEJESUS NOTIFIED OF CONSULT FOR COPD EXACERBATION.
--- NOTE | 2019-02-05 06:32 | NUR ---
NOTIFIED DR. SERRANO'S ANSWERING SERVICE TO NOTIFY HIM OF CONSULT ON PATIENT.
--- NOTE | 2019-02-05 07:54 | NUR ---
RESTING IN BED. O2 IN PLACE AT 6L NC. WHEEZES AND RHONCHI NOTED NOTED T/O. C/O CHEST PAIN AT TIME. BP WNL, 124/68. TRACE BLE NOTED. WILL CONTINUE TO MONITOR.
[2019-02-05 08:00] VITALS: BP 124/68
--- NOTE | 2019-02-05 09:00 | NUR ---
Explosive Man in to talk to patient. Patient states lives at home with his mother. There are 15 steps in the home. Physician: Dr. Bonny Washington [facility]acy: [facility] Home health services: none Patient's level of ADLs: INDEPENDENT Patient has working utilities: yes DME: nebulizer Follow-up physician's appointment after d/c: he prefers to make his own follow up appt after discharge Does patient want to access PORTAL?: no Discharge plan discussed with patient. He lives at home with his mother. He is independent in his ADLs and ambulation. Discussed home health care services and he denies any home needs at this time. When medically stable he will be discharged to home. His mother will provide transportation on discharge. Dr. Chan and Dr. Flannery consulted. DANNY LANE
[2019-02-05 11:57] VITALS: BP 103/67
[2019-02-05 13:37] LABS: ABG BASE EXCESS 0.8 mmol/L (-2.0-2.0); ARTERIAL BLOOD GAS PH 7.408 (7.35-7.45)
[2019-02-05 16:00] VITALS: BP 100/64
--- NOTE | 2019-02-05 19:51 | NUR ---
CALLED DR. SERRANO ABOUT CONSULT AND HE STATED THAT DR. AUGUSTINE SAW PATIENT TODAY FOR HIM.
[2019-02-05 20:00] VITALS: BP 106/64
[2019-02-06] VITALS (9 sets, daily range): BP systolic 97–130; BP diastolic 66–76
--- NOTE | 2019-02-06 00:42 | NUR ---
24 HR chart check completed.
--- NOTE | 2019-02-06 10:30 | NUR ---
Blind Escort in to see patient. No new needs or request at this time. He denies any home needs. When medically stable he will be discharged to home. Treating COPD, Dr. Chan following. Dr. Flannery following for AICD and cardiomyopathy.
--- NOTE | 2019-02-06 13:58 | NUR ---
PT ASSESSED FOR HOME OXYGEN. PT DID NOT QUALIFY. PT AT REST SPO2 93% RA, HR 96, B/P 130/76, RR 18 PT AMBULATED SPO2 92-94% RA PT AT REST SPO2 97% RA, HR 99, B/P 142/85, RR RN NOTIFIED
[2019-02-07] VITALS: BP 108/68
[2019-02-07 07:30] VITALS: BP 118/76
--- NOTE | 2019-02-07 08:00 | NUR ---
PATIENT RESTING IN BED COMFORTABLY AT TIME OF ASSEMENT, PLESANT AND COOPERATIVE, WILL CONTINUE TO MONITOR. VANESSA TORRES SPNRCC
[2019-02-07] MEDS ORDERED: PREDNISONE5 MG PO (08:14)
[2019-02-07] MEDS ORDERED: CEFUROXIME AXE250 MG PO (08:14)
--- NOTE | 2019-02-07 08:32 | NUR ---
DR. JOVEL IN TO SEE PT, WANTS TO GO HOME VANESSA TORRES SPSHIRACC
--- NOTE | 2019-02-07 09:45 | NUR ---
Discharge instructions reviewed with patient/family. Patient receptive and verbalizes understanding. Follow-up care arranged. Written instructions given to patient/family, d/c'd IV site asymptomatic, patient ambulated to front door accompanied by student nurse, condition stable. Denice Bush SPSHIRACC
[2019-02-07 16:06] LABS: ACID FAST SPEC PROCESSING Concentration (.)
== END 2019-02-07 09:45 | disposition home or self-care (01) | DRG 145 ==
LOC: ED 12:58 → EDHOLD 15:38 → 4E 15:38
PROVIDERS: Emergency Medicine; Internal Medicine Critical Care Medicine; ADMIT Internal Medicine
PROC: 0BJ08ZZ Inspection of Tracheobronchial Tree, Via Natural or Artificial Opening Endoscopic (ICD-10-PCS; principal; 2019-02-06)
DX: J20.9 Acute bronchitis, unspecified (principal); J96.01 Acute respiratory failure with hypoxia; J44.1 Chronic obstructive pulmonary disease with (acute) exacerbation; K21.9 Gastro-esophageal reflux disease without esophagitis; F41.1 Generalized anxiety disorder; F31.9 Bipolar disorder, unspecified; F17.210 Nicotine dependence, cigarettes, uncomplicated; I25.10 Atherosclerotic heart disease of native coronary artery without angina pectoris; R07.89 Other chest pain; J44.0 Chronic obstructive pulmonary disease with (acute) lower respiratory infection; I13.0 Hypertensive heart and chronic kidney disease with heart failure and stage 1 through stage 4 chronic kidney disease, or unspecified chronic kidney disease; N18.3 Chronic kidney disease, stage 3 (moderate); I50.9 Heart failure, unspecified; I25.5 Ischemic cardiomyopathy; G43.909 Migraine, unspecified, not intractable, without status migrainosus; E78.00 Pure hypercholesterolemia, unspecified; Z80.9 Family history of malignant neoplasm, unspecified; Z82.49 Family history of ischemic heart disease and other diseases of the circulatory system; I25.2 Old myocardial infarction; Z83.3 Family history of diabetes mellitus; Z82.3 Family history of stroke; Z95.5 Presence of coronary angioplasty implant and graft; Z95.1 Presence of aortocoronary bypass graft; Z88.1 Allergy status to other antibiotic agents; Z88.0 Allergy status to penicillin; Z88.8 Allergy status to other drugs, medicaments and biological substances; Z95.810 Presence of automatic (implantable) cardiac defibrillator

== ENCOUNTER 2019-02-13 19:30 | Inpatient (IN) | payer OTHER ==
[~2019-02-13] VITALS: Ht 175.2 cm; Wt 85.7 kg
[2019-02-13 19:39] VITALS: BP 134/88
[2019-02-13 19:55] LABS: BASO % 0.1 % (0.0-1.0); EOS % 0.1 % (1.0-4.0); HEMATOCRIT 40.8 % (42.0-52.0); HEMOGLOBIN 13.9 g/dl (14.0-18.0); MEAN CELL VOLUME 97.1 fl (80.0-94.0); MEAN CORPUSCULAR HGB 33.1 pg (27.0-31.0); MEAN CORPUSCULAR HGB CONC 34.1 g/dl (33.0-37.0); MEAN PLATELET VOLUME 10.7 fl (9.6-12.3); MONO # 0.7 10*3/uL (0.1-1.0); MONO % 6.6 % (3.0-9.0); NEUT # 8.3 10*3/uL (2.3-7.9); NEUT % 74.3 % (47.0-73.0); PLATELET COUNT AUTOMATED 190 10*3/uL (130-400); RED CELL DISTRI WIDTH 12.7 % (0-14.5); WHITE BLOOD COUNT 11.2 10*3/uL (4.8-10.8)
[2019-02-13 20:05] LABS: ACT PARTIAL THROMBO TIME 21.9 SECONDS (20.0-32.1); INTERNATIONAL NORM RATIO 0.9 (2.0-3.5)
[2019-02-13 20:06] LABS: LIPASE 876 U/L (73-393)
[2019-02-13 20:12] LABS: ALBUMIN 3.3 gm/dl (3.1-4.5); ALKALINE PHOSPHATASE 50 U/L (45-117); BUN 17 mg/dl (7-24); CHLORIDE 107 mmol/L (98-107); CREATININE 1.27 mg/dL (0.70-1.30); POTASSIUM 3.9 mmol/L (3.5-5.1); SGOT/AST 17 IU/L (3-35); SGPT/ALT 73 U/L (12-78); SODIUM 141 mmol/L (136-145); TOTAL PROTEIN 6.2 gm/dL (6.4-8.2); TROPONIN I < 0.015 ng/ml (<0.045)
[2019-02-13 20:40] VITALS: BP 123/82
[2019-02-13 22:20] VITALS: BP 136/95
--- NOTE | 2019-02-13 22:45 | NUR ---
DR DAVIS CALLED FOR ADMISSION ORDERS. NEW ORDERS RECEIVED. MADE AWARE OF PATIENT'S BP- NO NEW ORDERS AT THIS TIME.
--- NOTE | 2019-02-13 23:20 | NUR ---
NEW CONSULT CALLED TO DR CHAUHAN.
[2019-02-14] VITALS: BP 131/89
--- NOTE | 2019-02-14 | NUR ---
PATIENT RESTING WITH EYES CLOSED. RESPIRATIONS EASY AND UNLABORED. CALL LIGHT IN REACH. WILL MONITOR.
--- NOTE | 2019-02-14 04:00 | NUR ---
PATIENT RESTING WITH EYES CLOSED. RESPIRATIONS EASY AND UNLABORED. CALL LIGHT IN REACH. WILL MONITOR.
[2019-02-14 08:00] VITALS: BP 122/74
--- NOTE | 2019-02-14 09:14 | NUR ---
XANAX 1 MG GIVEN FOR C/O ANXIETY.
[2019-02-14 12:00] VITALS: BP 100/60
--- NOTE | 2019-02-14 15:57 | NUR ---
Patient signed out AMA. Patient encouraged to stay and advised of possible consequences of premature discharge. Physician RYAN and supervisor tower BOB DE LA O notified. Patient instructed what to do regarding care post-departure from the hospital; emergency phone numbers provided. Patent was accompanied by HIS MOTHER .PT ADVISED TO F/U WITH DR JOVEL AND CALL FOR AN APPT SOON OFFICE OPENS FOLLOWING HOLIDAY. NADER PARISI
--- NOTE | 2019-02-14 16:20 | NUR ---
ATTEMPTED TO REACH DR CHAUHAN.DR CASTRO STRATIGRAPHY TEACHER FOR GROUP. NO PRIVILIGES HERE AT [facility]. PER ANSWERING SERVICE THEY WERE NOT GIVEN INSTRUCTIONS TO CALL DR CHAUHAN TODAY.
== END 2019-02-14 16:26 | disposition left against medical advice (07) | DRG 203 ==
LOC: ED 19:30 → EDHOLD 21:25 → 4E 21:44
PROVIDERS: Emergency Medicine; ADMIT Internal Medicine
DX: M94.0 Chondrocostal junction syndrome [Tietze] (principal); I25.10 Atherosclerotic heart disease of native coronary artery without angina pectoris; I50.9 Heart failure, unspecified; J43.2 Centrilobular emphysema; K21.0 Gastro-esophageal reflux disease with esophagitis; I13.0 Hypertensive heart and chronic kidney disease with heart failure and stage 1 through stage 4 chronic kidney disease, or unspecified chronic kidney disease; F17.210 Nicotine dependence, cigarettes, uncomplicated; F41.1 Generalized anxiety disorder; F31.9 Bipolar disorder, unspecified; G43.909 Migraine, unspecified, not intractable, without status migrainosus; N18.9 Chronic kidney disease, unspecified; I42.9 Cardiomyopathy, unspecified; Z88.1 Allergy status to other antibiotic agents; Z88.0 Allergy status to penicillin; Z88.8 Allergy status to other drugs, medicaments and biological substances; Z79.899 Other long term (current) drug therapy; Z95.1 Presence of aortocoronary bypass graft; I25.2 Old myocardial infarction; Z95.5 Presence of coronary angioplasty implant and graft; Z95.810 Presence of automatic (implantable) cardiac defibrillator

== ENCOUNTER 2019-02-26 23:35 | Inpatient (IN) | payer OTHER ==
[~2019-02-26] VITALS: Ht 175.2 cm; Wt 90.0 kg
[2019-02-26 23:36] VITALS: BP 121/74
[2019-02-26 23:54] LABS: BASO % 0.2 % (0.0-1.0); EOS # 0.1 10*3/uL (0.0-0.4); EOS % 0.8 % (1.0-4.0); HEMATOCRIT 39.2 % (42.0-52.0); HEMOGLOBIN 13.2 g/dl (14.0-18.0); LYMPH # 2.2 10*3/uL (1.3-4.4); LYMPH % 26.3 % (27.0-41.0); MEAN CELL VOLUME 97.3 fl (80.0-94.0); MEAN CORPUSCULAR HGB 32.8 pg (27.0-31.0); MEAN CORPUSCULAR HGB CONC 33.7 g/dl (33.0-37.0); MEAN PLATELET VOLUME 10.1 fl (9.6-12.3); MONO # 0.6 10*3/uL (0.1-1.0); MONO % 6.6 % (3.0-9.0); NEUT # 5.5 10*3/uL (2.3-7.9); NEUT % 65.9 % (47.0-73.0); PLATELET COUNT AUTOMATED 181 10*3/uL (130-400); RED BLOOD COUNT 4.03 10*6/uL (4.50-5.90); RED CELL DISTRI WIDTH 13.2 % (0-14.5); WHITE BLOOD COUNT 8.4 10*3/uL (4.8-10.8)
[2019-02-26 23:56] VITALS: BP 127/75
[2019-02-27] VITALS (14 sets, daily range): BP systolic 106–160; BP diastolic 61–95
[2019-02-27 00:15] LABS: ACT PARTIAL THROMBO TIME 27.1 SECONDS (20.0-32.1); ALBUMIN 3.3 gm/dl (3.1-4.5); ALKALINE PHOSPHATASE 64 U/L (45-117); BUN 8 mg/dl (7-24); CHLORIDE 108 mmol/L (98-107); CREATININE 1.53 mg/dL (0.70-1.30); POTASSIUM 3.4 mmol/L (3.5-5.1); SGOT/AST 23 IU/L (3-35); SGPT/ALT 51 U/L (12-78); SODIUM 143 mmol/L (136-145); TOTAL PROTEIN 6.7 gm/dL (6.4-8.2)
[2019-02-27 00:17] LABS: TROPONIN I < 0.015 ng/ml (<0.045)
[2019-02-28] VITALS: BP 90/68
[2019-02-28 01:26] VITALS: BP 100/68
[2019-02-28 06:47] LABS: BUN 8 mg/dl (7-24); CHLORIDE 109 mmol/L (98-107); CREATININE 1.48 mg/dL (0.70-1.30); SODIUM 140 mmol/L (136-145)
[2019-02-28 08:00] VITALS: BP 118/70
[2019-02-28 12:00] VITALS: BP 137/70
[2019-02-28 16:00] VITALS: BP 106/61
[2019-02-28 20:00] VITALS: BP 105/60
[2019-03-01] VITALS: BP 94/60
[2019-03-01 07:04] LABS: CREATININE 1.57 mg/dL (0.70-1.30); POTASSIUM 4.9 mmol/L (3.5-5.1)
[2019-03-01] MEDS ORDERED: NICODERM CQ1 EAC2 T (09:41)
== END 2019-03-01 10:25 | disposition home or self-care (01) | DRG 140 ==
LOC: ED 23:35 → EDHOLD 02-27 02:38 → 4E 02-27 02:38
PROVIDERS: Emergency Medicine; ADMIT Internal Medicine
DX: J44.1 Chronic obstructive pulmonary disease with (acute) exacerbation (principal); M25.519 Pain in unspecified shoulder; I50.22 Chronic systolic (congestive) heart failure; F17.210 Nicotine dependence, cigarettes, uncomplicated; N18.3 Chronic kidney disease, stage 3 (moderate); I25.10 Atherosclerotic heart disease of native coronary artery without angina pectoris; K21.0 Gastro-esophageal reflux disease with esophagitis; F41.1 Generalized anxiety disorder; I42.9 Cardiomyopathy, unspecified; F31.9 Bipolar disorder, unspecified; E78.5 Hyperlipidemia, unspecified; Z79.899 Other long term (current) drug therapy; Z95.1 Presence of aortocoronary bypass graft; Z95.810 Presence of automatic (implantable) cardiac defibrillator; Z88.1 Allergy status to other antibiotic agents; Z88.0 Allergy status to penicillin; Z88.8 Allergy status to other drugs, medicaments and biological substances; Z79.82 Long term (current) use of aspirin; I25.2 Old myocardial infarction; Z95.5 Presence of coronary angioplasty implant and graft

== ENCOUNTER 2019-04-06 20:42 | Inpatient (IN) | payer OTHER ==
[~2019-04-06] VITALS: Ht 175.2 cm; Wt 84.0 kg
[~2019-04-06 20:42] MED LIST changes: +NICODERM CQ1 EAC2 T
[2019-04-06 20:49] VITALS: BP 116/77
--- NOTE | 2019-04-06 20:55 | NUR ---
PT O2 SAT 88% RA.PT PLACED ON 2L O2 VIA NC.
[2019-04-06 21:26] LABS: BASO % 0.3 % (0.0-1.0); EOS # 0.1 10*3/uL (0.0-0.4); EOS % 0.6 % (1.0-4.0); HEMATOCRIT 42.9 % (42.0-52.0); HEMOGLOBIN 14.5 g/dl (14.0-18.0); LYMPH # 1.3 10*3/uL (1.3-4.4); LYMPH % 11.3 % (27.0-41.0); MEAN CELL VOLUME 95.3 fl (80.0-94.0); MEAN CORPUSCULAR HGB 32.2 pg (27.0-31.0); MEAN CORPUSCULAR HGB CONC 33.8 g/dl (33.0-37.0); MEAN PLATELET VOLUME 11.4 fl (9.6-12.3); MONO # 0.8 10*3/uL (0.1-1.0); MONO % 6.8 % (3.0-9.0); NEUT # 9.4 10*3/uL (2.3-7.9); NEUT % 80.5 % (47.0-73.0); PLATELET COUNT AUTOMATED 183 10*3/uL (130-400); WHITE BLOOD COUNT 11.6 10*3/uL (4.8-10.8)
[2019-04-06 21:28] VITALS: BP 103/65
[2019-04-06 21:37] LABS: ACT PARTIAL THROMBO TIME 22.3 SECONDS (20.0-32.1)
[2019-04-06 21:44] LABS: ALBUMIN 3.8 gm/dl (3.1-4.5); CREATININE 1.93 mg/dL (0.70-1.30); POTASSIUM 3.6 mmol/L (3.5-5.1); TOTAL PROTEIN 7.1 gm/dL (6.4-8.2)
[2019-04-06 21:47] LABS: TROPONIN I 0.116 ng/ml (<0.045)
--- NOTE | 2019-04-06 21:49 | NUR ---
PT REPORTS HE TOOK HIS MEDICATIONS TODAY.PT REQUEST PAIN MEDICATION FOR HIS LEGS MD AWARE.FAMILY AT BEDSIDE.
--- NOTE | 2019-04-06 21:54 | NUR ---
PT ARRIVED WITH POCKET KNIFE.POCKET KNIFE LABELED AND PLACED IN BAG AND SENT HOME WITH MOTHER.MOTHER AND PT UPDATED ON CURRENT PLAN OF CARE.
--- NOTE | 2019-04-06 21:55 | NUR ---
PT DENIES ANY WOUNDS OR CUTS AT THIS TIME.
[2019-04-06 22:21] VITALS: BP 108/71
[2019-04-06 23:33] VITALS: BP 113/81
--- NOTE | 2019-04-06 23:41 | NUR ---
PT REPORTS PAIN 7/10 IN LEGS/HIP BILATERAL.PT MEDICATED PER EMAR.
[2019-04-07] VITALS (7 sets, daily range): BP systolic 80–138; BP diastolic 50–92
--- NOTE | 2019-04-07 00:05 | NUR ---
A 48, admitted to , under the services of CHEYENNE Pace MD with a diagnosis of elvated troponins. Chief complaint is c/o no strength in legs and his legs were cramping . Patient arrived via stretcher from ER. Monitor applied. Initial assessment completed. Vital signs taken and recorded. CHEYENNE PACE MD notified of admission to the unit. Orders received. See assessment for past medical history, medications and allergies. Patient and/or family oriented to unit. [facility] visitation policy reviewed. Clothing/patient valuable form completed. NILDA MELENDEZ
--- NOTE | 2019-04-07 00:14 | NUR ---
MD DELGADILLO ADVISES SHE SPOKE WITH DR AUGUSTINE AND HE WILL COME IN THE MORNING TO SEE PATIENT.MD DELGADILLO ADVISES TO RELQY TO FLOOR NOT TO CONTACT DR AUGUSTINE AGAIN [place].THIS INFORMATION GIVEN TO RICCI MELENDEZ.
[2019-04-07] MEDS ORDERED: RANEXA500 M1 PO (00:29)
--- NOTE | 2019-04-07 00:30 | NUR ---
BED ALARM IN USE D/T PATIENT STATING HE FELT WEAK AND HAD FOLLEN OVER 3 TIMES IN LAST 3 MONTHS
--- NOTE | 2019-04-07 00:30 | NUR ---
medication list reviewed with patient
--- NOTE | 2019-04-07 09:15 | NUR ---
IN TO SEE PATIENT.
--- NOTE | 2019-04-07 10:10 | NUR ---
PATIENT TAKEN OFF FLOOR FOR SCHEDULED HIP X-RAY PER ORDER.
--- NOTE | 2019-04-07 10:23 | NUR ---
PT RETURNED TO ROOM.
--- NOTE | 2019-04-07 17:16 | NUR ---
MOTHER AT BEDSIDE. PATIENT RESTING QUIETLY. NO VOICED COMPLAINTS. DENIES ANY CHEST PAIN/DISCOMFORT. WILL CONTINUE TO MONITOR. VSS. CALL LIGHT WITHIN REACH.
--- NOTE | 2019-04-07 21:41 | NUR ---
PT BLOOD PRESSURES ARE 80/50 IN RIGHT ARM MANUALLY, AND 70/40 IN LEFT ARM [address]UALLY. DR JOVEL NOTIFIED AND GIVES ORDERS TO GIVE PT 500 CC BOLUS NOW. CBC AND BMP IN AM. ORDERS GIVEN TO HOLD 2200 COREG. TANVIR STATES THAT IT IS OKAY TO GIVE PT SCHEDULED XANAX. WILL NOTIFY PT OF ORDERS.
[2019-04-08] VITALS (10 sets, daily range): BP systolic 80–118; BP diastolic 52–76
--- NOTE | 2019-04-08 01:15 | NUR ---
PT RESTING IN BED AT THIS TIME. NO S/S OF DISTRESS. PT SLEEPING AND AROUSES EASILY. PT DENIES SYMPTOMS OF HYPOTENSION. BP OBTAINED, 92/50. WILL CONTINUE TO MONTIOR. ALL SAFETY MEASURES IN PLACE. CALL LIGHT IN REACH.
--- NOTE | 2019-04-08 03:50 | NUR ---
PT RESTING IN BED. NO S/S OF DISTRESS NOTED. BP IMPROVING, MANUAL BP OBTAINED; SEE FLOWSHEET.
--- NOTE | 2019-04-08 04:39 | NUR ---
Shift chart check completed.
[2019-04-08 06:50] LABS: BASO % 0.4 % (0.0-1.0); EOS # 0.1 10*3/uL (0.0-0.4); EOS % 1.7 % (1.0-4.0); HEMOGLOBIN 11.9 g/dl (14.0-18.0); LYMPH % 26.1 % (27.0-41.0); MEAN CELL VOLUME 97.9 fl (80.0-94.0); MEAN CORPUSCULAR HGB 31.5 pg (27.0-31.0); MEAN CORPUSCULAR HGB CONC 32.2 g/dl (33.0-37.0); MEAN PLATELET VOLUME 11.9 fl (9.6-12.3); MONO # 0.6 10*3/uL (0.1-1.0); MONO % 8.5 % (3.0-9.0); NEUT # 4.7 10*3/uL (2.3-7.9); NEUT % 62.8 % (47.0-73.0); PLATELET COUNT AUTOMATED 157 10*3/uL (130-400); RED BLOOD COUNT 3.78 10*6/uL (4.50-5.90); RED CELL DISTRI WIDTH 13.5 % (0-14.5); WHITE BLOOD COUNT 7.5 10*3/uL (4.8-10.8)
[2019-04-08 07:21] LABS: CREATININE 1.59 mg/dL (0.70-1.30); POTASSIUM 3.7 mmol/L (3.5-5.1)
--- NOTE | 2019-04-08 07:52 | NUR ---
IN TO SEE PATIENT.
--- NOTE | 2019-04-08 19:33 | NUR ---
PATIENT RESTING IN BED. DENIES CHEST PAIN AND SHORTNESS OF BREATH. NO NEEDS MADE. BED IN LOWEST POSITION, CALL LIGHT IN REACH
--- NOTE | 2019-04-08 20:12 | NUR ---
DR JOVEL AWARE OF PATIENT'S BLOOD PRESSURE. STATES TO HOLD SCHEDULED COREG AND XANAX TONIGHT.
--- NOTE | 2019-04-08 20:44 | NUR ---
PRN TYLENOL GIVEN FOR C/O BILATERAL HIP PAIN, WILL MONITOR
[2019-04-09] VITALS: BP 90/58
[2019-04-09 04:40] VITALS: BP 119/74
--- NOTE | 2019-04-09 04:44 | NUR ---
PATIENT HAD A 14 BEAT RUN OF VTACH. PATIENT IS SLEEPING AND ASYMPTOMATIC. VITALS STABLE. CALLED DR AUGUSTINE TO NOTIFY HIM. HIS ANSWERING SERVICE ANSWERED AND STATES THEY WILL SEND THE MESSAGE TO DR AUGUSTINE
--- NOTE | 2019-04-09 04:52 | NUR ---
DR AUGUSTINE AWARE OF PATIENT'S 14 BEAT RUN OF VTACH. STATES TO ORDER A MAGNESIUM LEVEL AND HE WILL SEE THE PATIENT THIS MORNING.
--- NOTE | 2019-04-09 05:19 | NUR ---
Axela WAS CONTACTED WITH UNIT MANAGER [employer]. THEY STATED SOMEONE WILL CALL BACK WITHIN 30 MINUTES
--- NOTE | 2019-04-09 06:28 | NUR ---
PATIENT RESTING IN BED WITH EYES CLOSED. RESPS EASY AND REGULAR. ARROUSES EASILY. DENIES CHEST PAIN AT THIS TIME.BED IN LOWEST POSITION, CALL LIGHT IN REACH
[2019-04-09 07:57] VITALS: BP 110/68
[2019-04-09 08:22] LABS: BASO % 0.5 % (0.0-1.0); EOS # 0.1 10*3/uL (0.0-0.4); EOS % 1.8 % (1.0-4.0); HEMATOCRIT 38.5 % (42.0-52.0); HEMOGLOBIN 12.2 g/dl (14.0-18.0); LYMPH # 1.6 10*3/uL (1.3-4.4); MEAN CORPUSCULAR HGB 31.7 pg (27.0-31.0); MEAN CORPUSCULAR HGB CONC 31.7 g/dl (33.0-37.0); MEAN PLATELET VOLUME 11.4 fl (9.6-12.3); MONO # 0.4 10*3/uL (0.1-1.0); MONO % 6.3 % (3.0-9.0); NEUT # 3.5 10*3/uL (2.3-7.9); PLATELET COUNT AUTOMATED 159 10*3/uL (130-400); RED BLOOD COUNT 3.85 10*6/uL (4.50-5.90); RED CELL DISTRI WIDTH 13.3 % (0-14.5); WHITE BLOOD COUNT 5.5 10*3/uL (4.8-10.8)
[2019-04-09 08:36] LABS: BUN 6 mg/dl (7-24); CHLORIDE 112 mmol/L (98-107); POTASSIUM 4.3 mmol/L (3.5-5.1); SODIUM 146 mmol/L (136-145)
[2019-04-09 08:39] LABS: CREATININE 1.45 mg/dL (0.70-1.30)
--- NOTE | 2019-04-09 09:00 | NUR ---
Balance Sheet Analyst in to talk to patient. Patient states lives at home with his mother. There are 15 steps in the home. Physician: Dr. Bonny Washington [facility]: [facility] Home health services: none Patient's level of ADLs: INDEPENDENT Patient has working utilities: yes DME: nebulizer Follow-up physician's appointment after d/c: he prefers to make his own follow up appt after discharge Does patient want to access PORTAL?: no Discharge plan discussed with patient. He lives at home with his mother. He is independent in his ADLs and ambulation. Discussed home health care services and he denies any home needs at this time. He is unhappy about waiting to see Dr. Moncada and is thinking about leaving AMA. Suggested that he not leave AMA. His cell phone rang and he said to give him a minute. His mother will provide transportation on discharge. DANNY LANE
--- NOTE | 2019-04-09 09:15 | NUR ---
NOTIFIED OF LAB RESULTS. NO NEW ORDERS.
--- NOTE | 2019-04-09 10:46 | NUR ---
PT LEAVING AGAINST MEDICAL ADVICE. PACEMAKER HAS BEEN INTERROGATED. NOTIFIED OF RESULTS AND THAT PATIENT HAS DECIDED TO LEAVE. HEPLOCK DISCONTINUED. DOCTOR NATUROPATHIC REMOVED. PT AMBULATORY OFF FLOOR. BEING PICKED UP BY MOTHER.
== END 2019-04-09 10:46 | disposition left against medical advice (07) | DRG 469 ==
LOC: ED 20:42 → EDHOLD 23:41 → 5E 04-07 00:03
PROVIDERS: Emergency Medicine Emergency Medical Services; ADMIT Internal Medicine
DX: N17.0 Acute kidney failure with tubular necrosis (principal); I95.2 Hypotension due to drugs; I25.10 Atherosclerotic heart disease of native coronary artery without angina pectoris; T50.995A Adverse effect of other drugs, medicaments and biological substances, initial encounter; N18.3 Chronic kidney disease, stage 3 (moderate); J44.9 Chronic obstructive pulmonary disease, unspecified; I47.2 Ventricular tachycardia; F41.1 Generalized anxiety disorder; F31.9 Bipolar disorder, unspecified; M25.552 Pain in left hip; M25.551 Pain in right hip; Y92.238 Other place in hospital as the place of occurrence of the external cause; F17.210 Nicotine dependence, cigarettes, uncomplicated; I50.9 Heart failure, unspecified; Z88.0 Allergy status to penicillin; Z88.8 Allergy status to other drugs, medicaments and biological substances; Z88.1 Allergy status to other antibiotic agents; Z91.041 Radiographic dye allergy status; Z91.81 History of falling; Z95.1 Presence of aortocoronary bypass graft; I25.2 Old myocardial infarction; Z87.01 Personal history of pneumonia (recurrent); Z87.442 Personal history of urinary calculi; Z87.440 Personal history of urinary (tract) infections; Z82.49 Family history of ischemic heart disease and other diseases of the circulatory system; Z83.3 Family history of diabetes mellitus; Z80.8 Family history of malignant neoplasm of other organs or systems; Z45.02 Encounter for adjustment and management of automatic implantable cardiac defibrillator; J96.00 Acute respiratory failure, unspecified whether with hypoxia or hypercapnia

== ENCOUNTER 2019-04-14 08:24 | Emergency (ER) | payer OTHER ==
[~2019-04-14] VITALS: Ht 175.2 cm; Wt 83.5 kg
[2019-04-14] MEDS ORDERED: KETOROLAC10 MG PO (12:03)
== END 2019-04-14 12:08 | disposition home or self-care (01) ==
LOC: ED 08:24
DX: S70.02XA Contusion of left hip, initial encounter (principal); S70.12XA Contusion of left thigh, initial encounter; I25.10 Atherosclerotic heart disease of native coronary artery without angina pectoris; J44.9 Chronic obstructive pulmonary disease, unspecified; I25.2 Old myocardial infarction; I11.0 Hypertensive heart disease with heart failure; I50.9 Heart failure, unspecified; E78.00 Pure hypercholesterolemia, unspecified; F17.200 Nicotine dependence, unspecified, uncomplicated; Z88.0 Allergy status to penicillin; Z88.8 Allergy status to other drugs, medicaments and biological substances; Z91.041 Radiographic dye allergy status; Z88.1 Allergy status to other antibiotic agents; Z79.82 Long term (current) use of aspirin; Z79.899 Other long term (current) drug therapy; Z98.61 Coronary angioplasty status; X50.1XXA Overexertion from prolonged static or awkward postures, initial encounter; W19.XXXA Unspecified fall, initial encounter; Y93.89 Activity, other specified; Y92.89 Other specified places as the place of occurrence of the external cause; Y99.8 Other external cause status

== ENCOUNTER 2019-04-20 06:43 | Emergency (ER) | payer OTHER ==
[~2019-04-20] VITALS: Ht 175.2 cm; Wt 85.3 kg
[2019-04-20 07:07] LABS: BASO % 0.2 % (0.0-1.0); EOS # 0.1 10*3/uL (0.0-0.4); EOS % 2.3 % (1.0-4.0); HEMATOCRIT 38.3 % (42.0-52.0); HEMOGLOBIN 12.3 g/dl (14.0-18.0); LYMPH # 1.5 10*3/uL (1.3-4.4); LYMPH % 29.7 % (27.0-41.0); MEAN CELL VOLUME 98.7 fl (80.0-94.0); MEAN CORPUSCULAR HGB 31.7 pg (27.0-31.0); MEAN CORPUSCULAR HGB CONC 32.1 g/dl (33.0-37.0); MEAN PLATELET VOLUME 10.3 fl (9.6-12.3); MONO # 0.4 10*3/uL (0.1-1.0); MONO % 8.5 % (3.0-9.0); PLATELET COUNT AUTOMATED 260 10*3/uL (130-400); RED BLOOD COUNT 3.88 10*6/uL (4.50-5.90); RED CELL DISTRI WIDTH 13.7 % (0-14.5); WHITE BLOOD COUNT 5.2 10*3/uL (4.8-10.8)
[2019-04-20 07:21] LABS: ALKALINE PHOSPHATASE 77 U/L (45-117); BUN 6 mg/dl (7-24); CHLORIDE 106 mmol/L (98-107); CREATININE 1.39 mg/dL (0.70-1.30); POTASSIUM 3.9 mmol/L (3.5-5.1); SGOT/AST 66 IU/L (3-35); SGPT/ALT 100 U/L (12-78); SODIUM 143 mmol/L (136-145); TOTAL PROTEIN 6.6 gm/dL (6.4-8.2)
[2019-04-20 07:23] LABS: TROPONIN I 0.116 ng/ml (<0.045)
[2019-04-20 07:41] LABS: ACT PARTIAL THROMBO TIME 28.1 SECONDS (20.0-32.1)
[2019-04-20] MEDS ORDERED: Motrin,Rufen800 MG PO (10:29)
== END 2019-04-20 10:34 | disposition home or self-care (01) ==
LOC: ED 06:43
PROVIDERS: Emergency Medicine
DX: R07.9 Chest pain, unspecified (principal); J44.9 Chronic obstructive pulmonary disease, unspecified; E78.00 Pure hypercholesterolemia, unspecified; I11.0 Hypertensive heart disease with heart failure; I50.9 Heart failure, unspecified; I25.10 Atherosclerotic heart disease of native coronary artery without angina pectoris; I25.2 Old myocardial infarction; F17.200 Nicotine dependence, unspecified, uncomplicated; Z91.041 Radiographic dye allergy status; Z88.8 Allergy status to other drugs, medicaments and biological substances; Z88.1 Allergy status to other antibiotic agents; Z88.0 Allergy status to penicillin; Z79.899 Other long term (current) drug therapy; Z79.82 Long term (current) use of aspirin; Z95.810 Presence of automatic (implantable) cardiac defibrillator

== ENCOUNTER 2019-05-16 21:29 | Emergency (ER) | payer OTHER ==
[~2019-05-16] VITALS: Wt 89.4 kg
[2019-05-16 21:58] LABS: BASO # 0.1 10*3/uL (0.0-0.1); BASO % 0.6 % (0.0-1.0); EOS # 0.2 10*3/uL (0.0-0.4); EOS % 2.6 % (1.0-4.0); HEMOGLOBIN 12.6 g/dl (14.0-18.0); LYMPH # 2.3 10*3/uL (1.3-4.4); LYMPH % 26.6 % (27.0-41.0); MEAN CELL VOLUME 98.2 fl (80.0-94.0); MEAN CORPUSCULAR HGB 31.7 pg (27.0-31.0); MEAN CORPUSCULAR HGB CONC 32.3 g/dl (33.0-37.0); MONO # 0.7 10*3/uL (0.1-1.0); MONO % 7.9 % (3.0-9.0); NEUT # 5.3 10*3/uL (2.3-7.9); NEUT % 62.1 % (47.0-73.0); PLATELET COUNT AUTOMATED 194 10*3/uL (130-400); RED BLOOD COUNT 3.97 10*6/uL (4.50-5.90); RED CELL DISTRI WIDTH 13.5 % (0-14.5); WHITE BLOOD COUNT 8.5 10*3/uL (4.8-10.8)
[2019-05-16 22:08] LABS: ACT PARTIAL THROMBO TIME 25.4 SECONDS (20.0-32.1)
[2019-05-16 22:14] LABS: ALBUMIN 3.2 gm/dl (3.1-4.5); ALKALINE PHOSPHATASE 65 U/L (45-117); BUN 16 mg/dl (7-24); CHLORIDE 108 mmol/L (98-107); CREATININE 1.35 mg/dL (0.70-1.30); SGOT/AST 15 IU/L (3-35); SGPT/ALT 35 U/L (12-78); SODIUM 142 mmol/L (136-145); TOTAL PROTEIN 6.6 gm/dL (6.4-8.2)
[2019-05-16 22:15] LABS: TROPONIN I 0.025 ng/ml (<0.045)
== END 2019-05-17 04:00 | disposition home or self-care (01) ==
LOC: ED 21:29
PROVIDERS: Emergency Medicine
DX: R07.9 Chest pain, unspecified (principal); I25.10 Atherosclerotic heart disease of native coronary artery without angina pectoris; I50.9 Heart failure, unspecified; J44.9 Chronic obstructive pulmonary disease, unspecified; G43.909 Migraine, unspecified, not intractable, without status migrainosus; Z91.041 Radiographic dye allergy status; Z88.0 Allergy status to penicillin; Z88.1 Allergy status to other antibiotic agents; Z88.8 Allergy status to other drugs, medicaments and biological substances; Z79.899 Other long term (current) drug therapy

== ENCOUNTER 2019-07-20 17:36 | Emergency (ER) | payer OTHER ==
[~2019-07-20] VITALS: Ht 175.2 cm; Wt 90.7 kg
[2019-07-20 20:16] LABS: BASO % 0.5 % (0.0-1.0); EOS # 0.2 10*3/uL (0.0-0.4); EOS % 3.5 % (1.0-4.0); HEMATOCRIT 40.8 % (42.0-52.0); LYMPH # 1.7 10*3/uL (1.3-4.4); LYMPH % 26.6 % (27.0-41.0); MEAN CELL VOLUME 91.9 fl (80.0-94.0); MEAN CORPUSCULAR HGB 30.9 pg (27.0-31.0); MEAN CORPUSCULAR HGB CONC 33.6 g/dl (33.0-37.0); MEAN PLATELET VOLUME 10.7 fl (9.6-12.3); MONO # 0.4 10*3/uL (0.1-1.0); MONO % 6.5 % (3.0-9.0); NEUT # 4.1 10*3/uL (2.3-7.9); NEUT % 62.7 % (47.0-73.0); PLATELET COUNT AUTOMATED 212 10*3/uL (130-400); RED BLOOD COUNT 4.44 10*6/uL (4.50-5.90); RED CELL DISTRI WIDTH 13.6 % (0-14.5); WHITE BLOOD COUNT 6.5 10*3/uL (4.8-10.8)
[2019-07-20 20:31] LABS: ALBUMIN 3.5 gm/dl (3.1-4.5); ALKALINE PHOSPHATASE 89 U/L (45-117); BUN 9 mg/dl (7-24); CHLORIDE 107 mmol/L (98-107); CREATININE 1.34 mg/dL (0.70-1.30); POTASSIUM 4.3 mmol/L (3.5-5.1); SGOT/AST 19 IU/L (3-35); SGPT/ALT 19 U/L (12-78); SODIUM 141 mmol/L (136-145); TOTAL PROTEIN 6.6 gm/dL (6.4-8.2)
[2019-07-20 20:32] LABS: TROPONIN I < 0.015 ng/ml (<0.045)
[2019-07-20] MEDS ORDERED: PREDNISONE20 M1 PO (21:41)
== END 2019-07-20 21:44 | disposition home or self-care (01) ==
LOC: ED 17:36
PROVIDERS: Emergency Medicine
DX: J44.1 Chronic obstructive pulmonary disease with (acute) exacerbation (principal); Z88.8 Allergy status to other drugs, medicaments and biological substances; Z91.041 Radiographic dye allergy status; Z88.0 Allergy status to penicillin; Z79.899 Other long term (current) drug therapy

== ENCOUNTER 2019-08-10 14:56 | Inpatient (IN) | payer OTHER ==
[~2019-08-10] VITALS: Ht 175.2 cm; Wt 88.1 kg
[~2019-08-10 14:56] MED LIST changes: +PREDNISONE20 M1 PO
[2019-08-10 15:26] LABS: BASO % 0.4 % (0.0-1.0); EOS # 0.2 10*3/uL (0.0-0.4); EOS % 2.4 % (1.0-4.0); HEMATOCRIT 39.1 % (42.0-52.0); LYMPH # 1.7 10*3/uL (1.3-4.4); LYMPH % 24.3 % (27.0-41.0); MEAN CELL VOLUME 95.8 fl (80.0-94.0); MEAN CORPUSCULAR HGB 31.1 pg (27.0-31.0); MEAN CORPUSCULAR HGB CONC 32.5 g/dl (33.0-37.0); MEAN PLATELET VOLUME 10.6 fl (9.6-12.3); MONO # 0.5 10*3/uL (0.1-1.0); MONO % 6.7 % (3.0-9.0); NEUT # 4.7 10*3/uL (2.3-7.9); NEUT % 65.9 % (47.0-73.0); PLATELET COUNT AUTOMATED 179 10*3/uL (130-400); RED BLOOD COUNT 4.08 10*6/uL (4.50-5.90); RED CELL DISTRI WIDTH 14.3 % (0-14.5); WHITE BLOOD COUNT 7.1 10*3/uL (4.8-10.8)
[2019-08-10 15:36] LABS: ACT PARTIAL THROMBO TIME 24.8 SECONDS (20.0-32.1)
[2019-08-10 15:41] VITALS: BP 123/81
[2019-08-10 15:42] LABS: ALBUMIN 3.1 gm/dl (3.1-4.5); ALKALINE PHOSPHATASE 74 U/L (45-117); BUN 11 mg/dl (7-24); CHLORIDE 109 mmol/L (98-107); CREATININE 1.36 mg/dL (0.70-1.30); POTASSIUM 4.2 mmol/L (3.5-5.1); SGOT/AST 23 IU/L (3-35); SGPT/ALT 40 U/L (12-78); SODIUM 140 mmol/L (136-145); TOTAL PROTEIN 6.3 gm/dL (6.4-8.2)
[2019-08-10 15:43] LABS: TROPONIN I 0.018 ng/ml (<0.045)
[2019-08-10 17:01] VITALS: BP 110/65
[2019-08-10 19:34] VITALS: BP 105/59
[2019-08-10 19:56] VITALS: BP 133/86
--- NOTE | 2019-08-10 19:56 | NUR ---
A 49, admitted to , under the services of CHEYENNE Pace MD with a diagnosis of CHEST PAIN. Chief complaint is CHEST PAIN. Patient arrived via ambulatory from ER. Monitor applied. Initial assessment completed. Vital signs taken and recorded. CHEYENNE PACE MD notified of admission to the unit. Orders received. See assessment for past medical history, medications and allergies. Patient and/or family oriented to unit. [facility] visitation policy reviewed. Clothing/patient valuable form completed. VANESSA VICENTE
--- NOTE | 2019-08-10 21:16 | NUR ---
Patient given a dose of his prn xanax to help him relax and sleep. Will monitor and reassess.
--- NOTE | 2019-08-10 21:40 | NUR ---
Patient requested something for his chest pain. New order received from Dr. Washington for toradol.
--- NOTE | 2019-08-10 21:42 | NUR ---
Left message with Dr. Esparza for consult. He is electronic device monitor for Dr. Cummings.
--- NOTE | 2019-08-10 21:51 | NUR ---
Patient given a one time dose of toradol, for his chest pain. Will monitor and reassess.
--- NOTE | 2019-08-10 23:00 | NUR ---
Patient resting, no signs of distress. Toradol effective at this time.
[2019-08-11] VITALS: BP 90/46
--- NOTE | 2019-08-11 03:38 | NUR ---
Patient awaken by chest pain. Nitro given. Will monitor the effects.
--- NOTE | 2019-08-11 03:53 | NUR ---
1ST Nitro not effective, a second dose given. Will monitor effectiveness.
--- NOTE | 2019-08-11 04:00 | NUR ---
Patient not complaining of chest pain at the moment. 2nd dose of nitro effective.
--- NOTE | 2019-08-11 07:00 | NUR ---
ARRIVED ON SHIFT, RECEIVED REPORT FROM OFFGOING NURSE, ASSUMED CARE OF PATIENT.
--- NOTE | 2019-08-11 07:30 | NUR ---
INTRODUCED SELF TO PATIENT, BED IN LOW POSITION WITH WHEELLOCKS ENGAGED, SIDE RAILS UP X 2 FOR TURNING AND REPOSITIONING, CALL LIGHT WITHIN REACH, NO NEEDS VOICED AT THIS TIME, WHITE BOARD UPDATED.
[2019-08-11 08:00] VITALS: BP 123/74
--- NOTE | 2019-08-11 10:06 | NUR ---
Floor And Wall Applier Liquid in to talk to patient. Patient states lives at HOME with MOTHER. There are 12 steps in the home. Physician: MED [facility]acy: [facility] Home health services: NONE Patient's level of ADLs: INDEPENDENT Patient has working utilities: YES DME: NONE Follow-up physician's appointment after d/c: PREFERS TO MAKE OWN ON DISCHARGE Does patient want to access PORTAL?: N Discharge plan PT LIVES AT HOME WITH HIS MOTHER AND IS INDEPENDENT IN HIS CARE. DENIES HE WILL HAVE NEEDS ON DISCHARGE. PLAN IS TO RETURN HOME WHEN MEDICALLY STABLE. WILL CONTINUE TO FOLLOW. WILL HAVE A RIDE HOME ON DISCHARGE.. CHANDRA AYALA
[2019-08-11 12:00] VITALS: BP 107/72
--- NOTE | 2019-08-11 12:58 | NUR ---
Shift chart check completed.
[2019-08-11 16:00] VITALS: BP 108/69
--- NOTE | 2019-08-11 17:22 | NUR ---
PATIENT C/O H/A 7, DESCRIBES THROBBING, AND CHEST PAIN PRESSURE, MEDICATED WITH NITROSTAT TAB ORDERED PRN.
--- NOTE | 2019-08-11 17:29 | NUR ---
PATIENT FEELING ANXIOUS MEDICATED WITH XANAX ORDERED.
--- NOTE | 2019-08-11 17:36 | NUR ---
MINIMAL RELIEF FROM 1ST NITRO MEDICATED WITHB 2ND DOSE.
--- NOTE | 2019-08-11 19:43 | NUR ---
PATIENT C/O MIDSTERNAL CHEST PAIN RATING A 7/10. STAT EKG ORDERED.
[2019-08-11 20:00] VITALS: BP 108/67
--- NOTE | 2019-08-11 20:00 | NUR ---
PATIENT C/O MIDSTERNAL CHEST PAIN RATING A 7/10. ASSESSMENT COMPLETED. VITALS OBTAINED AND STABLE. EKG ORDERED PER POLICY. BED IS LOW, LOCKED, AND CALL LIGHT IS WITHIN REACH. WILL CONTINUE TO MONITOR, SEE INTERVENTION SCREEN.
--- NOTE | 2019-08-11 20:06 | NUR ---
OFFERED PATIENT NITRO TO HELP WITH CHEST PAIN. PATIENT C/O HEADACHE RATING A /10. CALL PLACED TO DR. JOVEL. SEE NEW ORDERS.
--- NOTE | 2019-08-11 21:18 | NUR ---
PRN TYLENOL GIVEN ORDERED. WILL MONITOR EFFECT.
--- NOTE | 2019-08-11 22:18 | NUR ---
PRN TYLENOL EFFECTIVE. CALL LIGHT IS WITHIN REACH, WILL MONITOR EFFECT.
[2019-08-12] VITALS: BP 99/55
--- NOTE | 2019-08-12 | NUR ---
PATIENT DRINKING MOUNTAIN DEW, EDUCATED PATIENT THAT MOUNTAIN DEW COULD BE THE CAUSE OF THE CHEST DISCOMFORT. PATIENT NOT RECEPTIVE OF EDUCATION.
--- NOTE | 2019-08-12 06:31 | NUR ---
CHART CHECK COMPLETE.
--- NOTE | 2019-08-12 07:00 | NUR ---
ARRIVED ON SHIFT, REPORT RECEIVED FROM OFFGOING NURSE, ASSUMED CARE OF PATIENT.
--- NOTE | 2019-08-12 07:35 | NUR ---
INTRODUCED SELF TO PATIENT BED IN LOW POSITION, WHEEL LOCKS ENGAGED, SIDE RAILS UP X 2 FOR TURNING AND REPOSITIONING, CALL LIGHT WITHIN REACH. NO NEEDS VOICED AT THIS TIME.
--- NOTE | 2019-08-12 07:43 | NUR ---
Shift chart check completed.
--- NOTE | 2019-08-12 09:30 | NUR ---
PATIENT C/O FEELING ANXIOUS REQUESTED A XANAX GIVEN ORDERED.
--- NOTE | 2019-08-12 10:30 | NUR ---
PATIENT REPORTS FEELING LESS ANXIOUS SINCE RECIEVING XANAX.
--- NOTE | 2019-08-12 11:40 | NUR ---
PATIENT CAME TO DESK, ADVISED HE WAS LEAVING, CALL PLACED TO DR. JOVEL TO LET HER KNOW, PATIENT WAS GOING AMA, SHE VERSED THATS WHAT HE DOES, HE FEELS BETTER AND LEAVES.
--- NOTE | 2019-08-12 11:45 | NUR ---
PATIENT DISCHARGED AGAINST MEDICAL ADVISE, IV REMOVED, AND TELEMETRY ACCOUNTED FOR, WALKED OUT. LEANDRO LU
== END 2019-08-12 11:45 | disposition left against medical advice (07) | DRG 140 ==
LOC: ED 14:56 → EDHOLD 18:26 → 4E 18:28
PROVIDERS: Emergency Medicine; ADMIT Internal Medicine
DX: J44.0 Chronic obstructive pulmonary disease with (acute) lower respiratory infection (principal); I25.10 Atherosclerotic heart disease of native coronary artery without angina pectoris; I42.9 Cardiomyopathy, unspecified; J44.1 Chronic obstructive pulmonary disease with (acute) exacerbation; N18.3 Chronic kidney disease, stage 3 (moderate); F41.1 Generalized anxiety disorder; F31.9 Bipolar disorder, unspecified; G89.4 Chronic pain syndrome; Z53.29 Procedure and treatment not carried out because of patient's decision for other reasons; J20.9 Acute bronchitis, unspecified; R07.2 Precordial pain; Z95.1 Presence of aortocoronary bypass graft; Z95.5 Presence of coronary angioplasty implant and graft; I25.2 Old myocardial infarction; Z88.8 Allergy status to other drugs, medicaments and biological substances; Z91.041 Radiographic dye allergy status; Z88.1 Allergy status to other antibiotic agents; Z88.0 Allergy status to penicillin; Z95.810 Presence of automatic (implantable) cardiac defibrillator; Z83.3 Family history of diabetes mellitus; Z82.49 Family history of ischemic heart disease and other diseases of the circulatory system; Z80.8 Family history of malignant neoplasm of other organs or systems; Z87.891 Personal history of nicotine dependence

== ENCOUNTER 2019-10-15 14:40 | Inpatient (IN) | payer OTHER ==
[~2019-10-15] VITALS: Ht 175.2 cm; Wt 90.4 kg
[2019-10-15 14:45] VITALS: BP 130/94
[2019-10-15 15:08] LABS: BASO % 0.4 % (0.0-1.0); EOS # 0.3 10*3/uL (0.0-0.4); EOS % 3.6 % (1.0-4.0); HEMATOCRIT 40.4 % (42.0-52.0); LYMPH # 1.7 10*3/uL (1.3-4.4); LYMPH % 22.8 % (27.0-41.0); MEAN CELL VOLUME 93.1 fl (80.0-94.0); MEAN CORPUSCULAR HGB 31.1 pg (27.0-31.0); MEAN CORPUSCULAR HGB CONC 33.4 g/dl (33.0-37.0); MEAN PLATELET VOLUME 10.4 fl (9.6-12.3); MONO # 0.6 10*3/uL (0.1-1.0); MONO % 8.1 % (3.0-9.0); NEUT # 4.7 10*3/uL (2.3-7.9); NEUT % 64.8 % (47.0-73.0); PLATELET COUNT AUTOMATED 218 10*3/uL (130-400); RED BLOOD COUNT 4.34 10*6/uL (4.50-5.90); RED CELL DISTRI WIDTH 13.9 % (0-14.5); WHITE BLOOD COUNT 7.3 10*3/uL (4.8-10.8)
[2019-10-15 15:24] LABS: ALBUMIN 3.3 gm/dl (3.1-4.5); ALKALINE PHOSPHATASE 92 U/L (45-117); BUN 5 mg/dl (7-24); CHLORIDE 106 mmol/L (98-107); POTASSIUM 4.4 mmol/L (3.5-5.1); SGOT/AST 15 IU/L (3-35); SGPT/ALT 20 U/L (12-78); SODIUM 142 mmol/L (136-145); TOTAL PROTEIN 6.4 gm/dL (6.4-8.2)
[2019-10-15 15:26] LABS: ACT PARTIAL THROMBO TIME 27.7 SECONDS (20.0-32.1)
[2019-10-15 15:27] LABS: TROPONIN I < 0.015 ng/ml (<0.045)
[2019-10-15 15:47] VITALS: BP 91/55
[2019-10-15 16:00] VITALS: BP 117/64
--- NOTE | 2019-10-15 16:00 | NUR ---
A 49, admitted to , under the services of CHEYENNE Pace MD with a diagnosis of CHEST PAIN. Chief complaint is CHEST PAIN. Patient arrived via bed from ER. Monitor applied. Initial assessment completed. Vital signs taken and recorded. CHEYENNE PACE MD notified of admission to the unit. Orders received. See assessment for past medical history, medications and allergies. Patient and/or family oriented to unit. [facility] visitation policy reviewed. Clothing/patient valuable form completed. BARRON GALE
[2019-10-15] MEDS ORDERED: MELATONIN10 M4 PO (17:10)
[2019-10-15] MEDS ORDERED: NEURONTIN300 MG PO (17:10)
[2019-10-15] MEDS ORDERED: XANAX1 MG PO (17:10)
[2019-10-15] MEDS ORDERED: PROTONIX40 MG PO (17:11)
[2019-10-15] MEDS ORDERED: ALDACTONE25 M1 PO (17:11)
[2019-10-15] MEDS ORDERED: IMDUR SA60 MG PO (17:11)
[2019-10-15] MEDS ORDERED: RANEXA500 M1 PO (17:12)
[2019-10-15] MEDS ORDERED: LIPITOR80 MG PO (17:12)
[2019-10-15] MEDS ORDERED: COREG25 MG PO (17:12)
[2019-10-15] MEDS ORDERED: PLAVIX75 M1 PO (17:12)
[2019-10-15] MEDS ORDERED: LISINOPRIL2.5 MG PO (17:13)
--- NOTE | 2019-10-15 17:19 | NUR ---
DR. RIOS'S ANSWERING SERVICE NOTIFIED OF CONSULT.
--- NOTE | 2019-10-15 19:35 | NUR ---
24 HR chart check completed.
[2019-10-15 20:00] VITALS: BP 119/71
--- NOTE | 2019-10-15 20:30 | NUR ---
RESTING IN BED WITH NO DISTRESS NOTED. RESPIRATIONS EASY. LUNGS DIMINISHED WITH EXP RHONCHI AND WHEEZES. PULSE OX 92% RA. CLAIMS COUGH PROD FOR GREEN. TRACE BLE EDEMA. CALL LIGHT WITHIN REACH. NO VOICED COMPLAINTS
--- NOTE | 2019-10-15 20:51 | NUR ---
REQUESTED AND RECEIVED XANAX PER PRN ORDER TO ASSIST WITH ANXIETY. CALL LIGHT WITHIN REACH. WILL MONITOR
--- NOTE | 2019-10-15 21:30 | NUR ---
EARLIER MEDS APPEAR EFFECTIVE. RESTING IN BED. NO DISTRESS NOTED. CALL LIGHT WITHIN REACH
--- NOTE | 2019-10-15 22:54 | NUR ---
Hep Lock discontinued. Site symptomatic. Pressure applied. Sterile dressing applied. IV started right antecubital with #22 angiocath after 0 attempts. The IV site was prepped with Chloraprep. Heparin lock attached. Sterile dressing applied. Patient tolerated precedure well. Procedure performed according to [facility] policy & procedure. LUZ MARIA DE LA O
[2019-10-16] VITALS: BP 153/70
--- NOTE | 2019-10-16 | NUR ---
SLEEPING. NO ACUTE DISTRESS NOTED. RESPIRATIONS EASY. VSS. CALL LIGHT WITHIN REACH
--- NOTE | 2019-10-16 06:00 | NUR ---
SLEPT THROUGHOUT NIGHT WITH NO DISTRESS NOTED. RESPIRATIONS EASY. CALL LIGHT WITHIN REACH. NO VOICED COMPLAINTS THIS SHIFT
[2019-10-16 08:00] VITALS: BP 125/64
--- NOTE | 2019-10-16 08:11 | NUR ---
PT MEDICATED WITH PRN XANAX FOR C/O INCREASED ANXIETY. WILL MONITOR
--- NOTE | 2019-10-16 09:00 | NUR ---
Soft Mud Molder in to talk to patient. Patient states lives at home with his mother. There are 14 steps in the home. Physician: Dr. Bonny Washington [facility]: [facility] Home health services: none Patient's level of ADLs: INDEPENDENT Patient has working utilities: yes DME: nebulizer (needs a new one if needed. Dr. Washington notified.) Follow-up physician's appointment after d/c: he prefers to make his own follow up appt after discharge Does patient want to access PORTAL?: no Discharge plan discussed with patient. He lives at home with his mother. He is independent in his ADLs and ambulation. Discussed home health care services and he declines. He states he does have a [facility] nurse that visits him monthly. CM will continue to follow for any discharge planning needs. When medically stable he will be discharged to home. He states his mother will provide transportation on discharge. DANNY LANE
[2019-10-16 12:00] VITALS: BP 105/56
[2019-10-16 16:00] VITALS: BP 130/63
--- NOTE | 2019-10-16 17:42 | NUR ---
PT DISCHARGED AGAINST MEDICAL ADVICE AT THIS TIME. HEPLOCK REMOVED. PT AMBULATED OFF THE FLOOR TO PRIVATE CAR. DR. JOVEL AND NURSING FIRST ASSIST, ASIF NOTIFIED.
== END 2019-10-16 18:01 | disposition left against medical advice (07) | DRG 198 ==
LOC: ED 14:40 → 4E 15:41 → EDHOLD 15:41 → 4E 16:02
PROVIDERS: Emergency Medicine; ADMIT Internal Medicine; ATTEND Internal Medicine
DX: R07.89 Other chest pain (principal); J44.1 Chronic obstructive pulmonary disease with (acute) exacerbation; F41.1 Generalized anxiety disorder; I25.10 Atherosclerotic heart disease of native coronary artery without angina pectoris; F17.210 Nicotine dependence, cigarettes, uncomplicated; I25.5 Ischemic cardiomyopathy; F31.9 Bipolar disorder, unspecified; N18.3 Chronic kidney disease, stage 3 (moderate); I50.9 Heart failure, unspecified; Z53.29 Procedure and treatment not carried out because of patient's decision for other reasons; Z95.810 Presence of automatic (implantable) cardiac defibrillator; Z91.14 Patient's other noncompliance with medication regimen; Z95.1 Presence of aortocoronary bypass graft; I25.2 Old myocardial infarction; Z95.5 Presence of coronary angioplasty implant and graft; Z79.899 Other long term (current) drug therapy; Z88.0 Allergy status to penicillin; Z88.1 Allergy status to other antibiotic agents; Z91.041 Radiographic dye allergy status

== ENCOUNTER 2020-05-03 03:40 | Inpatient (IN) | payer OTHER ==
[2020-05-03] VITALS (11 sets, daily range): BP systolic 115–164; BP diastolic 61–104
[~2020-05-03] VITALS: Ht 175.2 cm; Wt 86.0 kg
[~2020-05-03 03:40] MED LIST changes: +COREG25 MG PO; +MELATONIN10 M4 PO
[2020-05-03 04:28] LABS: BASO % 0.4 % (0.0-1.0); EOS # 0.1 10*3/uL (0.0-0.4); EOS % 0.9 % (1.0-4.0); HEMATOCRIT 34.2 % (42.0-52.0); LYMPH % 12.2 % (27.0-41.0); MEAN CELL VOLUME 91.9 fl (80.0-94.0); MEAN CORPUSCULAR HGB 30.6 pg (27.0-31.0); MEAN CORPUSCULAR HGB CONC 33.3 g/dl (33.0-37.0); MEAN PLATELET VOLUME 9.8 fl (9.6-12.3); MONO # 0.6 10*3/uL (0.1-1.0); MONO % 7.3 % (3.0-9.0); NEUT # 6.4 10*3/uL (2.3-7.9); PLATELET COUNT AUTOMATED 241 10*3/uL (130-400); RED BLOOD COUNT 3.72 10*6/uL (4.50-5.90); RED CELL DISTRI WIDTH 13.9 % (0-14.5); WHITE BLOOD COUNT 8.1 10*3/uL (4.8-10.8)
[2020-05-03 04:46] LABS: ALBUMIN 2.8 gm/dl (3.1-4.5); ALKALINE PHOSPHATASE 107 U/L (45-117); BUN 9 mg/dl (7-24); CHLORIDE 100 mmol/L (98-107); CREATININE 1.33 mg/dL (0.70-1.30); POTASSIUM 3.1 mmol/L (3.5-5.1); SGOT/AST 21 IU/L (3-35); SGPT/ALT 49 U/L (12-78); SODIUM 135 mmol/L (136-145); TOTAL PROTEIN 6.7 gm/dL (6.4-8.2)
[2020-05-03 04:55] LABS: ACT PARTIAL THROMBO TIME 29.1 SECONDS (20.0-32.1); INTERNATIONAL NORM RATIO 1.2 (2.0-3.5)
[2020-05-03 07:26] LABS: ABG BASE EXCESS 2.6 mmol/L (-2.0-2.0); ARTERIAL BLOOD GAS PH 7.459 (7.35-7.45); ARTERIAL BLOOD GAS PO2 111.5 (80-90)
[2020-05-03] MEDS ORDERED: NITROSTAT0.4 MG SL (10:16)
[2020-05-03] MEDS ORDERED: BAYER ASPIRIN C81 MG PO (10:16)
[2020-05-03 11:19] LABS: URINE AMPHETAMINES > 1000 (1000ng/ml); URINE BENZODIAZEPINES < 200 (200ng/ml); URINE CANNABINOIDS (THC) > 50 (50ng/ml); URINE COCAINE < 300 (300ng/ml); URINE METHADONE < 300 (300ng/ml); URINE OPIATES < 300 (300ng/ml)
[2020-05-03 11:23] LABS: URINE BARBITURATES < 200 (200ng/ml); URINE PHENCYCLIDINE < 25 (25ng/ml)
[2020-05-04] VITALS: BP 107/68
[2020-05-04 04:00] VITALS: BP 89/54
[2020-05-04 08:00] VITALS: BP 106/72
== END 2020-05-04 12:52 | disposition left against medical advice (07) | DRG 139 ==
LOC: ED 03:40 → EDHOLD 06:11 → ICCU 06:11
PROVIDERS: Emergency Medicine; ADMIT Internal Medicine; ATTEND Internal Medicine
PROC: 5A09357 Assistance with Respiratory Ventilation, Less than 24 Consecutive Hours, Continuous Positive Airway Pressure (ICD-10-PCS; principal; 2020-05-03)
DX: J18.9 Pneumonia, unspecified organism (principal); I25.10 Atherosclerotic heart disease of native coronary artery without angina pectoris; J44.1 Chronic obstructive pulmonary disease with (acute) exacerbation; I42.9 Cardiomyopathy, unspecified; Z95.810 Presence of automatic (implantable) cardiac defibrillator; K21.9 Gastro-esophageal reflux disease without esophagitis; F31.9 Bipolar disorder, unspecified; F41.1 Generalized anxiety disorder; J96.21 Acute and chronic respiratory failure with hypoxia; N18.31 Chronic kidney disease, stage 3a; G89.4 Chronic pain syndrome; J44.0 Chronic obstructive pulmonary disease with (acute) lower respiratory infection; Z53.29 Procedure and treatment not carried out because of patient's decision for other reasons; Z20.822 Contact with and (suspected) exposure to COVID-19; I13.0 Hypertensive heart and chronic kidney disease with heart failure and stage 1 through stage 4 chronic kidney disease, or unspecified chronic kidney disease; I50.9 Heart failure, unspecified; G43.909 Migraine, unspecified, not intractable, without status migrainosus; Z91.041 Radiographic dye allergy status; Z88.1 Allergy status to other antibiotic agents; Z95.1 Presence of aortocoronary bypass graft; I25.2 Old myocardial infarction; Z87.01 Personal history of pneumonia (recurrent); Z83.3 Family history of diabetes mellitus; Z82.49 Family history of ischemic heart disease and other diseases of the circulatory system; Z80.8 Family history of malignant neoplasm of other organs or systems; Z95.5 Presence of coronary angioplasty implant and graft; Z88.0 Allergy status to penicillin; Z91.81 History of falling; Z87.442 Personal history of urinary calculi; Z87.440 Personal history of urinary (tract) infections

== ENCOUNTER 2020-05-05 08:47 | Inpatient (IN) | payer OTHER ==
[~2020-05-05] VITALS: Ht 175.3 cm; Wt 86.8 kg
[~2020-05-05 08:47] MED LIST changes: +BAYER ASPIRIN C81 MG PO
[2020-05-05 09:00] VITALS: BP 145/94
[2020-05-05 09:11] LABS: BASO % 0.3 % (0.0-1.0); EOS # 0.2 10*3/uL (0.0-0.4); EOS % 2.5 % (1.0-4.0); HEMATOCRIT 32.4 % (42.0-52.0); LYMPH # 1.2 10*3/uL (1.3-4.4); LYMPH % 17.2 % (27.0-41.0); MEAN CELL VOLUME 94.2 fl (80.0-94.0); MEAN CORPUSCULAR HGB 31.7 pg (27.0-31.0); MEAN CORPUSCULAR HGB CONC 33.6 g/dl (33.0-37.0); MEAN PLATELET VOLUME 10.2 fl (9.6-12.3); MONO # 0.5 10*3/uL (0.1-1.0); NEUT # 4.8 10*3/uL (2.3-7.9); NEUT % 71.6 % (47.0-73.0); PLATELET COUNT AUTOMATED 256 10*3/uL (130-400); RED BLOOD COUNT 3.44 10*6/uL (4.50-5.90); RED CELL DISTRI WIDTH 13.9 % (0-14.5); WHITE BLOOD COUNT 6.8 10*3/uL (4.8-10.8)
[2020-05-05 09:19] LABS: ACT PARTIAL THROMBO TIME 28.3 SECONDS (20.0-32.1); INTERNATIONAL NORM RATIO 1.2 (2.0-3.5)
[2020-05-05 09:28] LABS: ALBUMIN 2.8 gm/dl (3.1-4.5); ALKALINE PHOSPHATASE 186 U/L (45-117); BUN 16 mg/dl (7-24); CHLORIDE 99 mmol/L (98-107); CREATININE 1.43 mg/dL (0.70-1.30); POTASSIUM 4.1 mmol/L (3.5-5.1); SGOT/AST 321 IU/L (3-35); SGPT/ALT 210 U/L (12-78); SODIUM 133 mmol/L (136-145); TOTAL PROTEIN 6.7 gm/dL (6.4-8.2)
[2020-05-05 09:29] LABS: TROPONIN I 0.017 ng/ml (<0.045)
[2020-05-05 10:30] VITALS: BP 149/78
[2020-05-05 11:45] VITALS: BP 142/74
[2020-05-05 12:42] VITALS: BP 144/84
[2020-05-05 16:00] VITALS: BP 104/80
[2020-05-05 20:02] VITALS: BP 115/79
[2020-05-06] VITALS: BP 104/74
[2020-05-06 04:00] VITALS: BP 120/78
[2020-05-06 08:00] VITALS: BP 126/84
== END 2020-05-06 10:55 | DRG 139 ==
LOC: ED 08:47 → EDHOLD 11:38 → 4E 11:38
PROVIDERS: Emergency Medicine; ADMIT Internal Medicine; ATTEND Internal Medicine
PROC: 0BH17EZ Insertion of Endotracheal Airway into Trachea, Via Natural or Artificial Opening (ICD-10-PCS; principal; 2020-05-06)
PROC: 5A1935Z Respiratory Ventilation, Less than 24 Consecutive Hours (ICD-10-PCS; 2020-05-06)
PROC: 05HY33Z Insertion of Infusion Device into Upper Vein, Percutaneous Approach (ICD-10-PCS; 2020-05-06)
PROC: B54MZZA Ultrasonography of Right Upper Extremity Veins, Guidance (ICD-10-PCS; 2020-05-06)
PROC: 5A12012 Performance of Cardiac Output, Single, Manual (ICD-10-PCS; 2020-05-06)
DX: J18.9 Pneumonia, unspecified organism (principal); Z88.0 Allergy status to penicillin; Z88.1 Allergy status to other antibiotic agents; Z91.041 Radiographic dye allergy status; Z88.8 Allergy status to other drugs, medicaments and biological substances; Z79.899 Other long term (current) drug therapy; Z95.1 Presence of aortocoronary bypass graft; I46.9 Cardiac arrest, cause unspecified